=== PATIENT | female | born 1945 | race Caucasian/White ===

== ENCOUNTER 2019-06-21 13:26 | Outpatient (CLI) | payer MEDICARE, SELFPAY ==
--- NOTE | ~2019-06-21 | MM_ITS ---
EXAMINATION: MM diagnostic jeb BI w alexa HISTORY: Right breast lump TECHNIQUE: Additional 3-D tomosynthesis images of both breasts were performed and synthetic 2-D image s were generated. CAD analysis was submitted and interpreted. COMPARISON: 08/01/2018,10/13/2016bilateral digital screening mammogram examinations BREAST PARENCHYMAL COMPOSITION: The breasts are almost entirely fatty. FINDINGS: No mammographic evidence of suspicious mass, architectural distortion, malignant calcificat ion, skin thickening or retraction or significant new or developing density. IMPRESSION: 1. No mammographic evidence of malignancy 2. Routine annual mammographic screening is recommended. BI-RADS Category 1: Negative Reviewed, dictated and finalized at location A.
--- NOTE | ~2019-06-21 | DEXA_ITS ---
Bone Density Report Name: May Hawkins Age: 74 Sex: Female Ethnicity: White Date of : 1945 Indication: postmenopausal; height loss; hysterectomy; Referring Provider: Marlys Lennon Study: Bone densitometry was performed. Exam Date: June 21, 2019 Accession number: [id number] Bone Density: Region BMD T-score Z-score Classification AP Spine (L1, L2) 1.026 0.4 2.6 Normal Femoral Neck (Left) 0.696 -1.4 0.6 Osteopenia Total Hip (Left) 0.790 -1.2 0.4 Osteopenia World Health Organization criteria for BMD impression classify patients as: Normal (T-score at or above -1.0), Osteopenia (T-score between -1.0 and -2.5), or Osteoporosis (T-score at or below -2.5). 10-year Fracture Risk(1): Major Osteoporotic Fracture 10% Hip Fracture 1.6% Reported Risk Factors: [place] (), Neck BMD=0.696, BMI=29.4 (1) FRAX(R) Version 3.08. Fracture probability calculated for an untreated patient. Fracture probability may be lower if the patient has received treatment. Clinical Information Provided by Patient: Has used the following medications: Vitamin D Has the following medical conditions: Hysterectomy Patient maximum height was 68 Menopause Age: 56 No regular weight bearing exercise Onset of menses at age 17 Number of children 2 Impression: The patient has low bone mass, based on the Left Femoral Neck T-score. The patient has an estimated ten-year risk of hip fracture of 1.6% and an estimated ten-year risk of major fracture of 10%, based on the WHO FRAX algorithm. Discussion: BONE DENSITY IS LOW AT ONE OR MORE SKELETAL SITES. This patient's lowest T-score is low at one or more skeletal sites. It meets the World Health Organization's (WHO) criteria for ?low bone mass? (T-score between -1.0 and -2.5). The patient's 10-year risk of fracture as calculated by FRAX is less than the threshold where pharmacological therapy is recommended by the National Osteoporosis Foundation (NOF). However, all treatment decisions require clinical judgment and consideration of individual patient factors, including patient preferences, comorbidities, previous drug use, risk factors not captured in the FRAX model (e.g., frailty, falls, vitamin D deficiency, increased bone turnover, interval significant decline in bone density) and possible under or overestimation of fracture risk by FRAX. The patient should follow a healthful lifestyle (good nutrition with adequate calcium and vitamin D, and appropriate weight-bearing exercise). Follow-Up: Consider repeating this study in 2 to 3 years to reassess this patient's status, or sooner if there is some new clinical indication. Reported by: NAT on 06/21/2019 2:21:00 PM. Reviewed, dictated and finalized at location AGabino ESPINOZA
== END 2019-06-21 13:27 | disposition home or self-care (01) ==
PROVIDERS: PCP Pediatrics; Visit Provider Obstetrics & Gynecology
DX: N63.10 Unspecified lump in the right breast, unspecified quadrant (principal); Z78.0 Asymptomatic menopausal state; M85.89 Other specified disorders of bone density and structure, multiple sites; R92.8 Other abnormal and inconclusive findings on diagnostic imaging of breast
CPT/HCPCS: 77062; 77066; 77080; G0279

== ENCOUNTER 2019-12-17 01:33 | Outpatient (CLI) | payer MEDICARE, SELFPAY ==
[2019-12-17 20:39] LABS: SARS-CoV-2 RNA PCR Negative
== END 2019-12-17 01:34 | disposition home or self-care (01) ==
LOC: ANHCOVIDDT 01:33
PROVIDERS: PCP Pediatrics; Visit Provider Internal Medicine Gastroenterology
DX: Z01.812 Encounter for preprocedural laboratory examination (principal); Z20.828 Contact with and (suspected) exposure to other viral communicable diseases
CPT/HCPCS: 87635; C9803; U0003

== ENCOUNTER 2019-12-20 00:49 | Day surgery (SDC) | payer MEDICARE, SELFPAY ==
[2019-12-17 13:33] VITALS: BMI 27.4
--- NOTE | 2019-12-20 06:43 | WPDANESEPPF ---
Anes - Initial Pre Proc Eval Procedure: Operation Date: 12/20/19 09:30 Proposed Procedures p Esophagogastroduodenoscopy & Colonoscopy - Denzel Gatica MD Date/Time: 12/20/19 06:43 Surgeon: Denzel Gatica MD Pre Op Diagnosis: diarrhea, epigastric pain Patient Data Age: 74 Gender: F Height: 1.7 m Weight: 79.5 kg Allergies Allergy/AdvReac Type Severity Reaction Status Date / Time dihydroergotamine Allergy Intermediate Hypertensio Verified 12/20/19 08:34 n amitriptyline Allergy Mild Hives Verified 12/20/19 08:34 ciprofloxacin Allergy Mild Migraine Verified 12/20/19 08:34 erythromycin base Allergy Mild Rash Verified 12/20/19 08:34 gabapentin Allergy Mild Confusion Verified 12/20/19 08:34 hydrogen peroxide Allergy Mild Swelling Verified 12/20/19 08:34 nitrofurantoin Allergy Mild Confusion Verified 12/20/19 08:34 Penicillins Allergy Mild Unknown Verified 12/20/19 08:34 pregabalin Allergy Mild Confusion Verified 12/20/19 08:34 Quinolones Allergy Mild Migraine Verified 12/20/19 08:34 Sulfa (Sulfonamide Allergy Mild Hives Verified 12/20/19 08:34 Antibiotics) sumatriptan Allergy Mild Migraine Verified 12/20/19 08:34 ampicillin Allergy Unknown Unknown Verified 12/20/19 08:34 clarithromycin Allergy Unknown Unknown Verified 12/20/19 08:34 divalproex sodium Allergy Unknown Hypertensio Verified 12/20/19 08:34 n Home Medications Medication Instructions Recorded Confirmed Type amitriptyline 25 mg PO HS 12/17/19 12/17/19 History amlodipine 5 mg PO DAILY 12/17/19 12/17/19 History aspirin [Adult Low Dose Aspirin] 81 mg PO DAILY 12/17/19 12/17/19 History atorvastatin 10 mg PO DAILY 12/17/19 12/17/19 History carvedilol 6.25 mg PO BID 12/17/19 12/17/19 History levothyroxine 112 mcg PO DAILY 12/17/19 12/17/19 History losartan 100 mg PO BID 12/17/19 12/17/19 History mecobalamin (vitamin B12) 500 mcg PO DAILY 12/17/19 12/17/19 History melatonin 10 mg PO HS PRN 12/17/19 12/17/19 History montelukast 10 mg PO DAILY 12/17/19 12/17/19 History pantoprazole 40 mg PO DAILY 12/17/19 12/17/19 History sertraline 100 mg PO DAILY 12/17/19 12/17/19 History tizanidine 4 mg PO DAILY 12/17/19 12/17/19 History topiramate 25 mg PO BID 12/17/19 12/17/19 History Patient hx anesthesia problems: none Family hx anesthesia problems: none PMF Past Medical History Medical History (Updated 12/20/19 @ 06:44 by Steve Garcia MD) Diabetes HTN (hypertension) Hypercholesterolemia Hypothyroidism Overweight (BMI 25.0-29.9) Family History Family History (Updated 09/13/17 @ 12:33 by DOCTOR UNKNOWN) Sibling Patient's brother is , Onset Age: 49 Father Family history of cardiovascular disease Mother Family history of congestive heart failure Social History Social History Smoking status: Never smoker Alcohol intake: never Substance use: never Substance use type: does not use Living arrangements: with family Spiritual care concerns: No Anes - Eval Final PreProcedure Day of Procedure 12/20/19 06:43 Patient weight: overweight Heart: regular rate and rhythm Lungs: clear to auscultation and normal air movement Airway: Mallampati scale class II Neurological: alert and oriented Last oral intake: >/= 8 hours ASA classification: III Emergent: no Anesthetic plan: proceed Anesthesia type and monitoring: general GIVS Informed Consent: The patient's anesthetic plan and its attendant risks and benefits were discussed with the patient/family/POA. Questions were solicited and answers provided to the satisfaction of the patient/family/POA.
[2019-12-20 08:36] VITALS: BP 147/86; PULSE 53; RESP 16; TEMP 36.4; O2SAT 99
[2019-12-20 08:51] LABS: Glucose Point of Care 165 (65-105)
--- NOTE | 2019-12-20 08:51 | WPDGICN ---
Assessment and Plan Assessment and plan (1) Abdominal pain: Code(s): R10.9 - Unspecified abdominal pain Status: Acute Assessment and Plan: Patient with abdominal pain both low in epigastric area it was somewhat generalized and diffuse. Associated with diarrhea suspicious for irritable bowel syndrome. Given her ongoing symptoms which is a change from previous bowel habits and previous Elyssa having had no pain plan is for a trial of FiberCon daily, Bentyl b.i.d.. An EGD and colonoscopy will be arranged as well to exclude organic disease. (2) Epigastric abdominal pain: Code(s): R10.13 - Epigastric pain Status: Acute (3) Diarrhea: Code(s): R19.7 - Diarrhea, unspecified Status: Acute GI Consult Note Consult date/time: 12/20/19 08:51 HPI: May Parmar is a 74 year old female Seen in evaluation at the request of Dr Kirby. patient reports diarrhea stools that began intermittently see states sometimes normal sometimes watery. She denies any bleeding or fever. She has had abdominal pain both in low abdomen as well as the epigastric area described as crampy occasionally sharp pains period comes intermittently as well. Not specifically related to bowel movement or diet. She denies any fever or weight loss. Family history is noncontributory. Review of Systems Review of Systems: All systems reviewed & are unremarkable except as noted in HPI and below PMFSH Past Medical History Medical History (Updated 12/20/19 @ 08:53 by Denzel Gatica MD) Diabetes HTN (hypertension) Hypercholesterolemia Hypothyroidism Overweight (BMI 25.0-29.9) Family History Family History (Updated 09/13/17 @ 12:33 by DOCTOR UNKNOWN) Sibling Patient's brother is , Onset Age: 49 Father Family history of cardiovascular disease Mother Family history of congestive heart failure Social History Social History Smoking status: Never smoker Alcohol intake: never Substance use: never Substance use type: does not use Living arrangements: with family Spiritual care concerns: No Meds Home Medications and Allergies Home Medications Medication Instructions Recorded Confirmed Type amitriptyline 25 mg PO HS 12/17/19 12/17/19 History amlodipine 5 mg PO DAILY 12/17/19 12/17/19 History aspirin [Adult Low Dose Aspirin] 81 mg PO DAILY 12/17/19 12/17/19 History atorvastatin 10 mg PO DAILY 12/17/19 12/17/19 History carvedilol 6.25 mg PO BID 12/17/19 12/17/19 History levothyroxine 112 mcg PO DAILY 12/17/19 12/17/19 History losartan 100 mg PO BID 12/17/19 12/17/19 History mecobalamin (vitamin B12) 500 mcg PO DAILY 12/17/19 12/17/19 History melatonin 10 mg PO HS PRN 12/17/19 12/17/19 History montelukast 10 mg PO DAILY 12/17/19 12/17/19 History pantoprazole 40 mg PO DAILY 12/17/19 12/17/19 History sertraline 100 mg PO DAILY 12/17/19 12/17/19 History tizanidine 4 mg PO DAILY 12/17/19 12/17/19 History topiramate 25 mg PO BID 12/17/19 12/17/19 History Allergies Allergy/AdvReac Type Severity Reaction Status Date / Time dihydroergotamine Allergy Intermediate Hypertensio Verified 12/20/19 08:34 n amitriptyline Allergy Mild Hives Verified 12/20/19 08:34 ciprofloxacin Allergy Mild Migraine Verified 12/20/19 08:34 erythromycin base Allergy Mild Rash Verified 12/20/19 08:34 gabapentin Allergy Mild Confusion Verified 12/20/19 08:34 hydrogen peroxide Allergy Mild Swelling Verified 12/20/19 08:34 nitrofurantoin Allergy Mild Confusion Verified 12/20/19 08:34 Penicillins Allergy Mild Unknown Verified 12/20/19 08:34 pregabalin Allergy Mild Confusion Verified 12/20/19 08:34 Quinolones Allergy Mild Migraine Verified 12/20/19 08:34 Sulfa (Sulfonamide Allergy Mild Hives Verified 12/20/19 08:34 Antibiotics) sumatriptan Allergy Mild Migraine Verified 12/20/19 08:34 ampicillin Allergy Unknown Unknown Verified 12/20/19 08:34 clarithromycin Allergy Unknown Unknown Verified 12/20/19 08:34 d
[2019-12-20] MEDS: LACTATED RINGERS 1,000 ML 150 ML IV CONT (08:53)
[2019-12-20] MEDS: BENZOCAINE (*SP) 60 ML SPRAY CAN (HURRICAINE) 1 SPRAY MUCOUS MEM (09:35)
--- NOTE | 2019-12-20 09:46 | SUR.OPER ---
EGD ENDED 940 COLONOSCOPY STARTED 945
--- NOTE | 2019-12-20 10:19 | SUR.OPER ---
PT POSITIONED ON BACK DURING PROCEDURE
[2019-12-20 10:21] VITALS: BP 144/66; PULSE 47; RESP 16; O2SAT 97
[2019-12-20 10:31] VITALS: BP 146/68; PULSE 46; RESP 14; O2SAT 99
[2019-12-20 10:41] VITALS: BP 129/74; PULSE 47; RESP 16; O2SAT 97
== END 2019-12-20 11:14 | disposition home or self-care (01) ==
PROVIDERS: PCP Pediatrics; Visit Provider Internal Medicine Gastroenterology
PROC: 0DJ08ZZ Inspection of Upper Intestinal Tract, Via Natural or Artificial Opening Endoscopic (ICD-10-PCS; CPT 43235; principal; 2019-12-20 09:30)
DX: R10.84 Generalized abdominal pain (principal); R19.7 Diarrhea, unspecified; K57.30 Diverticulosis of large intestine without perforation or abscess without bleeding; K64.8 Other hemorrhoids; R10.13 Epigastric pain; I10 Essential (primary) hypertension; E11.9 Type 2 diabetes mellitus without complications; E78.00 Pure hypercholesterolemia, unspecified; E03.9 Hypothyroidism, unspecified
CPT/HCPCS: 45378; 43235; J7120

== ENCOUNTER 2020-12-24 09:51 | Inpatient (IN) | payer MEDICARE, SELFPAY ==
[2020-12-24] VITALS (23 sets, daily range): BP systolic 108–154; BP diastolic 65–101; PULSE 69–143; RESP 14–24; TEMP 36.2–37.2; O2SAT 92–100; BMI 27.8
--- NOTE | ~2020-12-24 | XR_ITS ---
XR chest 2V DATE: 12/24/2020 10:31 INDICATION: Shortness of breath, cough. Covid negative. TECHNIQUE: AP and lateral views COMPARISON: 07/05/2018 2 view chest FINDINGS: Normal heart size. Is aortic calcification and mild unfolding. No hilar or mediastinal enla rgement. No pulmonary infiltrate or consolidation, pleural effusion or pulmonary vascular congestion or pneumo thorax. Diffuse idiopathic skeletal hyperostosis of the thoracic spine. Surgical clips, right upper quadrant, consistent with cholecystectomy. IMPRESSION: No active cardiopulmonary disease Reviewed, dictated and finalized at location A. BILITY ENGINEER
--- NOTE | 2020-12-24 09:55 | ECG_ITS ---
Measurements Intervals Mabel Rate: 69 P: 25 DC: 147 QRS: 20 QRSD: 86 T: 74 QT: 379 QTc: 407 Interpretive Statements SINUS RHYTHM NORMAL ECG Electronically Signed On 12-24-2020 10:22:42 DIRECTOR OF OPTIMIZATION by Bello Smith D.O.
[2020-12-24 10:11] LABS: Basophils Percent Auto 0.2 % (0.2-1.2); Eosinophils Absolute Auto 0.3 K/mm3 (0-0.3); Eosinophils Percent Auto 1.4 % (0-4.4); Hematocrit 43.8 % (37.0-47.0); Hemoglobin 14.7 g/dL (12.0-15.0); Immature Granulocyte Absolute 0.34 K/mm3 (0.00-0.031); Immature Granulocyte Percent A 1.9 % (0-0.5); Lymphocytes Absolute Auto 1.82 K/mm3 (0.9-3.2); Mean Corpuscular HGB Conc 33.6 g/dl (32-36); Mean Corpuscular Volume 77.5 fl (80-100); Mean Platelet Volume 10.2 fl (7.4-10.4); Monocytes Absolute Auto 0.7 K/mm3 (0.1-0.6); Monocytes Percent Auto 3.7 % (2.6-8.5); Neutrophils Percent Auto 82.8 % (45.5-73.1); Platelet Count Result 234 k/mm3 (150-375); Red Blood Count 5.65 M/mm3 (4.2-5.4); Red Cell Distribution Width 16.8 % (11.5-14.5); White Blood Count 18.1 K/mm3 (4.5-10.0)
[2020-12-24 10:23] LABS: Alanine Aminotransferase 33 U/L (4-35); Albumin Level 4.1 g/dL (3.5-5.1); Alkaline Phosphatase 94 U/L (38-126); Anion Gap 13 mmol/L (8-16); Aspartate Amino Transferase 26 U/L (14-36); Bilirubin,Total 0.5 mg/dL (0.2-1.3); Blood Urea Nitrogen 31 mg/dL (7-17); Calcium 8.9 mg/dL (8.4-10.2); Carbon Dioxide 16 mmol/L (22-30); Chloride 102 mmol/L (98-107); Estimated CRCL calculation 39 ml/min; Estimated Glomerular Filt Rate 49; Glucose 295 mg/dL (65-110); Potassium 4.4 mmol/L (3.4-5.0); Sodium 131 mmol/L (137-145)
[2020-12-24 10:36] LABS: NT Pro B Type Natriuretic Pept 42 pg/mL (5-100)
[2020-12-24] MEDS: IPRATROPIUM BR 0.02% INH SOLN 0.5 MG/2.5 ML VIAL 1.5 MG INHALATION (11:24)
[2020-12-24] MEDS: ALBUTEROL SULFATE NEB 2.5 MG/0.5 ML INH 15 MG INHALATION (11:24)
--- NOTE | 2020-12-24 12:56 | ED.SOB ---
HPI - SOB/Dyspnea General Chief Complaint: Shortness of Breath/Dyspnea Stated Complaint: Shortness of breath Time Seen by Provider: 12/24/20 10:15 History of Present Illness HPI Narrative: Patient is a 75-year-old female who presents the ER with shortness of breath. Patient reports recent hospitalization at at bedtime at bedtime [facility]. There she was diagnosed with COPD exacerbation despite her reporting she has no history of COPD. She is a former smoker however. Patient was treated with IV steroids and regular nebulizer treatments. Patient has been using Spiriva and albuterol at home. She reports cough is worsened. She has coarse rales with coughing. Denies fevers or chills or sweats. She has been taking her prednisone taper while at home. Patient reports 3 negative Covid tests while at the outside hospital. Patient also is reporting pain in her abdomen and back from frequent coughing Related Data Home Medications Medication Instructions Recorded Confirmed amitriptyline 25 mg PO HS 12/17/19 12/24/20 amlodipine 10 mg PO DAILY 12/17/19 12/24/20 aspirin [Adult Low Dose Aspirin] 81 mg PO DAILY 12/17/19 12/24/20 atorvastatin 20 mg PO DAILY 12/17/19 12/24/20 carvedilol 6.25 mg PO BID 12/17/19 12/24/20 levothyroxine 112 mcg PO DAILY 12/17/19 12/24/20 losartan 50 mg PO BID 12/17/19 12/24/20 mecobalamin (vitamin B12) 500 mcg PO DAILY 12/17/19 12/24/20 melatonin 10 mg PO HS PRN 12/17/19 12/24/20 pantoprazole 40 mg PO DAILY 12/17/19 12/24/20 sertraline 100 mg PO DAILY 12/17/19 12/24/20 tizanidine 4 mg PO HS 12/17/19 12/24/20 topiramate 25 mg PO BID 12/17/19 12/24/20 albuterol sulfate 1 puff INHALATION QID 12/24/20 12/24/20 budesonide-formoterol [Symbicort] INHALATION 12/24/20 clonidine HCl 0.1 mg PO DAILY PRN 12/24/20 12/24/20 guaifenesin 600 mg PO BID 12/24/20 12/24/20 ipratropium-albuterol 3 ml INHALATION QID 12/24/20 12/24/20 prednisone 80 mg PO BID 12/24/20 12/24/20 tiotropium bromide [Spiriva with 18 mcg INHALATION DAILY 12/24/20 12/24/20 HandiHaler] Allergies Allergy/AdvReac Type Severity Reaction Status Date / Time dihydroergotamine Allergy Intermediate Hypertensio Verified 12/24/20 17:19 n amitriptyline Allergy Mild Hives Verified 12/24/20 17:19 ciprofloxacin Allergy Mild Migraine Verified 12/24/20 17:19 erythromycin base Allergy Mild Rash Verified 12/24/20 17:19 gabapentin Allergy Mild Confusion Verified 12/24/20 17:19 hydrogen peroxide Allergy Mild Swelling Verified 12/24/20 17:19 nitrofurantoin Allergy Mild Confusion Verified 12/24/20 17:19 Penicillins Allergy Mild Unknown Verified 12/24/20 17:19 pregabalin Allergy Mild Confusion Verified 12/24/20 17:19 Quinolones Allergy Mild Migraine Verified 12/24/20 17:19 Sulfa (Sulfonamide Allergy Mild Hives Verified 12/24/20 17:19 Antibiotics) sumatriptan Allergy Mild Migraine Verified 12/24/20 17:19 ampicillin Allergy Unknown Unknown Verified 12/24/20 17:19 clarithromycin Allergy Unknown Unknown Verified 12/24/20 17:19 divalproex sodium Allergy Unknown Hypertensio Verified 12/24/20 17:19 n Review of Systems Review of Systems: All systems reviewed & are unremarkable except as noted in HPI and below Constitutional: Constitutional: Denies chills, Reports fatigue and Denies fever(s) ENT: Denies nasal congestion and Denies sore throat Cardiovascular: Cardiovascular: Denies chest pain and Denies radiating jaw, neck or arm pain Respiratory: Respiratory: Reports cough, Reports dyspnea and Reports wheezing Gastrointestinal: Gastrointestinal: Denies nausea and Denies vomiting Musculoskeletal: Musculoskeletal: Denies arthralgias, Denies joint swelling and Reports muscle cramps PMFSH Past Medical History Medical History (Updated 12/24/20 @ 18:47 by Otis Paez MD) Chronic kidney disease, stage 3 Baseline creatinine is around 1.10. Chronic obstructive pulmonary disease Depression Diastolic congestive heart failure Echocardiogram in August 2016 showed n
--- NOTE | 2020-12-24 15:45 | PM.IMHP ---
H&P: HPI History of Present Illness Date/Time: 12/24/20 15:45 Chief Complaint: Cough. Narrative: This is a 75-year-old female with hypertension, hyperlipidemia, obstructive sleep apnea on CPAP, GERD, type 2 diabetes mellitus, and poorly documented history of COPD (patient is a lifelong nonsmoker) who presented to the emergency department earlier today via private vehicle from home for evaluation of a cough. Approximately 2 weeks ago she developed a cough which she attributed to postnasal drip and as the days went on she developed raspiness in her voice and a worsening, barking cough. She had 2 negative rapid COVID tests done as an outpatient before being admitted to [facility] in [place] for 5 days last week for her symptoms. She was treated with antibiotics, steroids, and nebulizers for presumed pneumonia and she reports testing negative for COVID by PCR done at that time. Her symptoms were not better when she was discharged home 2 days ago on Tuesday and she continues to have a barking cough associated with pleuritic pain. She has not had fever, chills, or sweats. She denies overt shortness of breath though she feels like she cannot get it in a good breath at times. She denies nausea or vomiting or change in smell or taste. She denies dysphagia and concerns for aspiration however she reports having laryngitis for 5 weeks many years ago for which she was referred to an ENT at [place]. It sounds as though she had speech therapy there although she does not recall ever being diagnosed with vocal cord dysfunction. Additionally the patient does not think she has ever had formal PFTs to diagnose asthma or COPD. She did complete the COVID vaccination series and denies known exposure to those positive for COVID. Review of Systems Review of Systems: Twelve systems were reviewed. She denies fever, chills, and sweats. No headache or neck ache. No significant sore throat. No exertional chest pain. Appetite has been okay. No diarrhea. No dysuria. No orthopnea, PND, or lower extremity edema. No history of venous thromboembolism. Her glucose has been running a bit high due to steroids. No blurry vision, polydipsia, or polyuria. Except as documented, all other systems were reviewed and are negative. [facility] Past Medical History Medical History Chronic kidney disease, stage 3 Baseline creatinine is around 1.10. Chronic obstructive pulmonary disease Depression Diastolic congestive heart failure Echocardiogram in August 2016 showed normal left ventricular systolic function and size with without wall motion abnormalities, moderate concentric left ventricular hypertrophy, and impaired diastolic relaxation grade 1 with an EF estimated 65%. Hypercholesterolemia Hypertension Hypothyroidism Irritable bowel syndrome Migraines Nephrolithiasis Spinal stenosis Type 2 diabetes mellitus Surgical History Surgical History (Updated 12/24/20 @ 16:00 by Shweta Sykes PA-C) History of arthroscopy of left knee (04/2002) ACL repair. History of bilateral tubal ligation (1973) History of bladder suspension procedure History of carpal tunnel release (2010) History of colonoscopy (12/28/19) Extensive sigmoid diverticulosis, per Dr. Gatica. History of esophagogastroduodenoscopy (12/20/19) Unremarkable, per Dr. Gatica. History of evacuation of hematoma (01/2011) And decompression of lumbar hematoma. History of hysterectomy History of laparoscopic cholecystectomy (11/2003) History of left heart catheterization (2002) Unremarkable per patient. History of mandibular surgery (1979) Bilateral TMJ surgery. History of spinal surgery Laser spine surgery at L4-L5 x3. History of tonsillectomy History of total right hip arthroplasty (2007) History of tympanoplasty of right ear (11/2008) Family History Family History (Updated 12/24/20 @ 15:58 by Shweta Sykes PA-C) Sibling Mesothelioma Father Family
--- NOTE | 2020-12-24 17:19 | ADMGEN ---
This patient, May Parmar, was admitted to [facility] Surg Room 327-01 at 1705. Patient/family oriented to hospital policies and general routines including ID bracelet, bed and alarms, visiting hours, pain management, procedures, bathroom and other care routines, personal items, smoking policy, room service/diet, and visiting hours. Information on how to activate the Rapid Response Team has been discussed. Patient/Family are encouraged to report perceived risks to care and to ask questions if they do not understand what they are told or what they should do.
[2020-12-24 17:30] LABS: Glucose Point of Care 195 mg/dl (65-105)
[2020-12-24 18:19] LABS: CRP 0.8 mg/dL (<1.0); Magnesium 2.1 mg/dL (1.6-2.3)
[2020-12-24 19:48] LABS: Procalcitonin 0.1 ng/mL
[2020-12-24 20:13] LABS: Hemoglobin A1C 8.7 % (<5.7)
[2020-12-24] MEDS: ALBUTEROL SULFATE NEB 2.5 MG/0.5 ML INH 5 MG INHALATION (21:22)
[2020-12-24] MEDS: IPRATROPIUM BR 0.02% INH SOLN 0.5 MG/2.5 ML VIAL INHALATION (21:22)
[2020-12-24] MEDS: guaiFENesin 12 HR 600 MG TABCR PO (21:31)
[2020-12-24] MEDS: ACETAMINOPHEN 325 MG TABLET 650 MG PO (21:49)
[2020-12-24] MEDS: MELATONIN 5 MG TABLET 10 MG PO (22:19)
[2020-12-24] MEDS: carvediloL 6.25 MG TABLET PO (22:19)
[2020-12-24] MEDS: TIZANIDINE HCL 4 MG TABLET PO (22:19)
[2020-12-24 22:22] LABS: Glucose Point of Care 183 mg/dl (65-105)
[2020-12-25] VITALS (14 sets, daily range): BP systolic 125–137; BP diastolic 69–86; PULSE 65–83; RESP 16–18; TEMP 36.8–37.2; O2SAT 96–98
[2020-12-25] MEDS: IPRATROPIUM BR 0.02% INH SOLN 0.5 MG/2.5 ML VIAL INHALATION ×4 (02:25→22:04)
[2020-12-25] MEDS: ALBUTEROL SULFATE NEB 2.5 MG/0.5 ML INH 5 MG INHALATION ×2 (02:25→08:39)
[2020-12-25] MEDS: LEVOTHYROXINE SODIUM 112 MCG TABLET PO (06:00)
[2020-12-25 08:18] LABS: Glucose Point of Care 182 mg/dl (65-105)
[2020-12-25] MEDS: amLODIPine BESYLATE 5 MG TABLET 10 MG PO (09:23)
[2020-12-25] MEDS: ATORVASTATIN 10 MG TABLET 20 MG PO (09:23)
[2020-12-25] MEDS: ENOXAPARIN 40 MG/0.4 ML SYRINGE SUB-Q (09:23)
[2020-12-25] MEDS: SERTRALINE HCL 50 MG TABLET 100 MG PO (09:23)
[2020-12-25] MEDS: predniSONE 20 MG TABLET 40 MG PO (09:24)
[2020-12-25] MEDS: carvediloL 6.25 MG TABLET PO ×2 (09:24→20:00)
[2020-12-25] MEDS: ASPIRIN 81 MG CHEWABLE TABLET PO (09:25)
[2020-12-25] MEDS: TOPIRAMATE 25 MG TABLET PO ×2 (09:25→17:46)
[2020-12-25] MEDS: guaiFENesin 12 HR 600 MG TABCR PO ×2 (09:25→20:00)
[2020-12-25] MEDS: PANTOPRAZOLE 40 MG TABLET PO (09:25)
[2020-12-25] MEDS: LOSARTAN POTASSIUM 50 MG TABLET PO ×2 (09:25→17:46)
[2020-12-25] MEDS: CYANOCOBALAMIN 500 MCG TABLET PO (09:25)
[2020-12-25 12:18] LABS: Glucose Point of Care 246 mg/dl (65-105)
--- NOTE | 2020-12-25 12:27 | PM.CNPUL ---
Assessment and Plan Assessment and plan (1) Cough: Code(s): R05.9 - Cough, unspecified Status: Acute Assessment and Plan: Patient with chronic cough for 10 years that is episodic coming for 6 weeks in resolving for 2-3 months. These coughing episodes are usually precipitated by sinus congestion sinus discharge. Patient is currently coughing since the summer an over the last 2 weeks this as worsened despite treatment with antibiotics, prednisone and inhalers. Patient tells me she has had 3 or 4 PFTs in maybe on the last PFT she they said something about minor emphysema. She occasionally does wheeze when she coughs. She has no evidence of gastroesophageal reflux and is treated with Protonix currently. No evidence of asthma by history. Regarding the etiology of her cough I am concerned about allergic sinusitis leading to chronic cough. Currently she has improved with prednisone 40 mg p.o. q.day and I will continue albuterol and ipratropium nebulizers Q 6 hours for now. I will discontinue all other inhalers. Will empirically start her on montelukast, loratidine and flonase nasal to aggressively treat sinus disease. I will send an IgE allergen panel for our area. I see no evidence of an active infection and agree with no antibiotics. Will follow with you. History of Present Illness History of Present Illness Consult date: 12/25/20 Requesting physician: Miladis Rodriguez MD Reason for consult: cough Chief complaint: copd exacerbation,bronchitis Narrative: This is a new Pulmonary consultation for cough 75-year-old woman with a history of migraine headaches, borderline diabetes, hypothyroidism hypertension, and chronic cough for 10 years. Patient tells me that she has no respiratory issues through her childhood other than strep throat in which she had to have her tonsils removed at age 22. She never had any coughing issues until approximately age 50-56. She said the coughing has been episodic and more regular over the last 10 years. She will have bouts of coughing that last approximately 6 weeks and then she will have 2 or 3 months in which she has no cough and is totally asymptomatic Been able to walk and go to the [facility] for classes. Over the last 10 years her episodes happen worse over time. She has had multiple diagnostic tests for these coughs most notably she went to see an ENT at [facility] about 5 years ago when she was coughing for 5 months and she was forcing could not speak. She did have visualization and they said that her vocal cords were normal. She eventually regained her speech. She tells me the coughing episodes always are proceeded by sinus congestion runny nose and postnasal drip that then goes down into her chest and causes her to rattle. She denies ever having hemoptysis. She says that the coughing is generally worse in the morning and night and that may be drinking water sometimes helps a cough. She also states there is nothing she can do to provoke the coughing episodes. She denies eating or choking on food. She denies ear pain or sinus pain. And states that she has been on multiple inhalers, prednisone, Zyrtec, media Singulair, Protonix, gabapentin and that none of these help her coughing episodes when they occur. Patient states that she did have an ear surgery for a hole in her here but that healed up. Recently she saw an ENT in [facility] and her ears were stopped up and they cleared with antibiotics. The patient denies heartburn or acid reflux and had a normal EGD on 12/20/2019. The patient had an echocardiogram in 2017 there was no evidence of any mitral valve disease. currently the patient states she has been coughing since the summer and again per her usual pattern she had sinus congestion that settled in her chest. She was recently admitted to an outside hospital for 5 days and was treated with antibiotics, steroids and nebulizers for presumed pneumonia and she has had
[2020-12-25] MEDS: LORATADINE 10 MG TABLET PO (13:43)
[2020-12-25] MEDS: INSULIN ASPART (*BKC) 100 UNITS/ML SUB-Q ×2 (13:44→17:45)
--- NOTE | 2020-12-25 14:02 | PM.IMPN ---
Progress Note: A&P Assessment and Plan (1) Cough: Code(s): R05.9 - Cough, unspecified Status: Acute Assessment and Plan: Pt has ongoing dry cough cough that has been present for about 2 weeks. Chest x-ray is unremarkable and pt has a negative chest CTA. Pt has history of copd. She did complete the COVID vaccination series and denies known exposure to those positive for COVID. Continue to treat with IV steroids and nebulizers, pulmonology advices to treat the allergic competent also. (2) Pleuritic pain: Code(s): R07.81 - Pleurodynia Status: Acute Assessment and Plan: Likely secondary to COPDexcerbation (3) Leukocytosis: Code(s): D72.829 - Elevated white blood cell count, unspecified Status: Acute Assessment and Plan: Continue to monitor (4) Hypertension: Code(s): I10 - Essential (primary) hypertension Status: Acute Assessment and Plan: Continue home medications (5) Type 2 diabetes mellitus: Code(s): E11.9 - Type 2 diabetes mellitus without complications Status: Acute Assessment and Plan: Continue home medications, Accuchecks, SSi (6) Hypercholesterolemia: Code(s): E78.00 - Pure hypercholesterolemia, unspecified Status: Acute (7) Hypothyroidism: Code(s): E03.9 - Hypothyroidism, unspecified Status: Acute Assessment and Plan: Continue home medications (8) Diastolic congestive heart failure: Code(s): I50.30 - Unspecified diastolic (congestive) heart failure Status: Acute Assessment and Plan: Continue home medications (9) Chronic kidney disease, stage 3: Code(s): N18.30 - Chronic kidney disease, stage 3 unspecified Status: Acute Assessment and Plan: monitor bmp Subjective Date/time seen: 12/25/20 14:02 Interval history: 75-year-old female with hypertension, hyperlipidemia, obstructive sleep apnea on CPAP, GERD, type 2 diabetes mellitus, and poorly documented history of COPD (patient is a lifelong nonsmoker) who presented to the emergency department earlier today via private vehicle from home for evaluation of a cough. Pt admitted with copd excerbation/ bronchitis. Evaluation by pulmonology MD appreciated. Review of Systems Review of Systems: All systems reviewed & are unremarkable except as noted in HPI and below Exam Narrative: General: Well-developed, constant dry cough Respiratory: BL rales in lungs Cardiovascular: Regular rate and rhythm with S1-S2. Gastrointestinal: Abdomen is soft, nontender, and nondistended with positive bowel sounds. Skin: Warm and dry. No rash or lesions on limited exam. Extremities: No cyanosis, clubbing, or edema. Radial and pedal pulses intact. Neurological: Alert. Cranial nerves 2-12 are grossly intact. No gross focal deficits to casual conversation. Psychiatric: Pleasant and cooperative with normal mood and affect. Judgment and insight intact. Objective Data Vital Signs Vital Signs: Vital Signs - 24 hr 12/24/20 14:07 12/24/20 14:16 12/24/20 14:31 Temperature Pulse Rate 76 76 78 Respiratory Rate 18 18 19 Blood Pressure 131/66 110/79 133/78 Pulse Oximetry 97 95 92 12/24/20 15:16 12/24/20 16:30 12/24/20 16:40 Temperature 37.2 C Pulse Rate 80 82 73 Respiratory Rate 15 20 16 Blood Pressure 134/80 149/96 H 137/86 Pulse Oximetry 95 98 98 12/24/20 20:00 12/24/20 21:24 12/24/20 21:32 Temperature Pulse Rate 79 77 79 Respiratory Rate 16 16 16 Blood Pressure Pulse Oximetry 95 12/24/20 22:00 12/24/20 22:19 12/25/20 02:26 Temperature 36.6 C Pulse Rate 69 79 83 Respiratory Rate 16 16 Blood Pressure 143/83 H Pulse Oximetry 95 12/25/20 02:35 12/25/20 06:00 12/25/20 08:46 Temperature 37.2 C Pulse Rate 81 65 72 Respiratory Rate 16 16 18 Blood Pressure 125/69 Pulse Oximetry 98 96 12/25/20 08:55 12/25/20 09:24 Temperature Pulse Rate 80 68 Respir
[2020-12-25] MEDS: ALBUTEROL SULFATE NEB 2.5 MG/0.5 ML INH INHALATION ×2 (14:36→22:03)
[2020-12-25 16:31] LABS: Glucose Point of Care 273 mg/dl (65-105)
[2020-12-25] MEDS: MONTELUKAST SODIUM 10 MG TABLET PO (20:00)
[2020-12-25] MEDS: TIZANIDINE HCL 4 MG TABLET PO (20:00)
[2020-12-25] MEDS: MELATONIN 5 MG TABLET 10 MG PO (20:34)
[2020-12-25 21:33] LABS: Glucose Point of Care 318 mg/dl (65-105)
[2020-12-26] VITALS (9 sets, daily range): BP systolic 141–150; BP diastolic 72–79; PULSE 52–88; RESP 14–20; TEMP 36.3–36.6; O2SAT 95–100
[2020-12-26] MEDS: HYDROcodone/acetaminophen (*CRX) 5-325 MG TABLET 1 TAB PO (02:36)
[2020-12-26] MEDS: ALBUTEROL SULFATE NEB 2.5 MG/0.5 ML INH INHALATION ×2 (03:48→15:08)
[2020-12-26] MEDS: IPRATROPIUM BR 0.02% INH SOLN 0.5 MG/2.5 ML VIAL INHALATION ×2 (03:49→15:08)
[2020-12-26] MEDS: LEVOTHYROXINE SODIUM 112 MCG TABLET PO (06:26)
[2020-12-26 08:14] LABS: Glucose Point of Care 162 mg/dl (65-105)
--- NOTE | 2020-12-26 08:35 | PM.PNPUL ---
Progress Note: A&P Assessment and Plan (1) Cough: Code(s): R05.9 - Cough, unspecified Status: Acute Assessment and Plan: 12/25 Patient with chronic cough for 10 years that is episodic coming for 6 weeks in resolving for 2-3 months. These coughing episodes are usually precipitated by sinus congestion sinus discharge. Patient is currently coughing since the summer an over the last 2 weeks this as worsened despite treatment with antibiotics, prednisone and inhalers. Patient tells me she has had 3 or 4 PFTs in maybe on the last PFT she they said something about minor emphysema. She occasionally does wheeze when she coughs. She has no evidence of gastroesophageal reflux and is treated with Protonix currently. No evidence of asthma by history. Regarding the etiology of her cough I am concerned about allergic sinusitis leading to chronic cough. Currently she has improved with prednisone 40 mg p.o. q.day and I will continue albuterol and ipratropium nebulizers Q 6 hours for now. I will discontinue all other inhalers. Will empirically start her on montelukast, loratidine and flonase nasal to aggressively treat sinus disease. I will send an IgE allergen panel for our area. I will send immunoglobulin levels. I see no evidence of an active infection and agree with no antibiotics. 12/26 Patient states the cough is a little bit better. She states that is maybe 15% better but still present. She denies any shortness of breath. Saturations on room air are 98-100%. Currently she is on albuterol and ipratropium nebulizers Q 6 hours, Solu-Medrol 40 mg a day, montelukast 10 mg a day, loratadine 10 mg a day, Flonase nasal spray at 2 sprays each nostril q.a.m., guaifenesin 600 mg b.i.d., Protonix 40 mg p.o. q.day and Benzonate 200 mg t.i.d.. she is still coughing during the examination. The etiology of the patient's coughing episodes start with sinus congestion and postnasal drip that ultimately ;nino to her coughing spells. She is asymptomatic for 2-3 months between these episodes that last 4-6 weeks. I would aggressively treat her sinus disease with montelukast 10 mg p.o. q.day, antihistamine such as loratadine 10 mg q. day, and flonase Q day. She is on Protonix and has no GERD symptoms and had a normal EGD 12/28/19. she has no symptoms of asthma when she is not coughing for 2-3 months and no limitation in her daily living from a respiratory viewpoint during this time. She is lifelong never smoker Making tobacco related COPD unlikely, She has had PFTs but I do not have those currently. Multiple inhalers as well as prednisone have not helped her coughing spells and have provided minimal improvement over the last week and I would DC at this time. I will send immunoglobulin levels to exclude hypogammaglobulinemia as a cause for sinusitis and I have sent and IgE panel for local ([place]) allergens. From a pulmonary perspective patient is ready for discharge on these pulmonary medications. montelukast 10 mg a day loratadine 10 mg a day Flonase nasal spray at 2 sprays each nostril q.a.m. guaifenesin 600 mg b.i.d. Protonix 40 mg p.o. q.day Benzonate 200 mg t.i.d.. Patient should follow up with her primary physician and given the severity, complexity and unclear etiology of her cough she should be referred to an manager animation and pulmonary service at [facility] or [facility] as an outpatient. Discussed with Dr. Rodriguez, will signoff, call with questions. Subjective Date/time seen: 12/26/20 08:35 Interval history: 12/25/20 This is a new Pulmonary consultation for cough 75-year-old woman with a history of migraine headaches, borderline diabetes, hypothyroidism hypertension, and chronic cough for 10 years. Patient tells me that she has no respiratory issues through her childhood other than strep throat in which she had to have her tonsils removed at age 22. She never had any coughing issues until approximately age 50-56.
[2020-12-26 09:07] LABS: Hematocrit 46.5 % (37.0-47.0); Hemoglobin 15.4 g/dL (12.0-15.0); Mean Corpuscular HGB Conc 33.1 g/dl (32-36); Mean Corpuscular Hemoglobin 26.2 pg (26-34); Mean Corpuscular Volume 79.2 fl (80-100); Mean Platelet Volume 10.3 fl (7.4-10.4); Platelet Count Result 273 k/mm3 (150-375); Red Blood Count 5.87 M/mm3 (4.2-5.4); Red Cell Distribution Width 16.8 % (11.5-14.5); White Blood Count 16.5 K/mm3 (4.5-10.0)
[2020-12-26 09:16] LABS: Anion Gap 8 mmol/L (8-16); Blood Urea Nitrogen 25 mg/dL (7-17); Calcium 9.8 mg/dL (8.4-10.2); Carbon Dioxide 25 mmol/L (22-30); Chloride 102 mmol/L (98-107); Estimated CRCL calculation 39 ml/min; Estimated Glomerular Filt Rate 49; Glucose 190 mg/dL (65-110); Potassium 4.3 mmol/L (3.4-5.0); Sodium 135 mmol/L (137-145)
[2020-12-26] MEDS: BENZONATATE 100 MG CAPSULE 200 MG PO (10:16)
[2020-12-26] MEDS: methylPREDNISolone SOD SUCC 40 MG VIAL IV PUSH (10:16)
[2020-12-26] MEDS: ENOXAPARIN 40 MG/0.4 ML SYRINGE SUB-Q (10:17)
[2020-12-26] MEDS: LOSARTAN POTASSIUM 50 MG TABLET PO (10:17)
[2020-12-26] MEDS: LORATADINE 10 MG TABLET PO (10:17)
[2020-12-26] MEDS: CYANOCOBALAMIN 500 MCG TABLET PO (10:17)
[2020-12-26] MEDS: ATORVASTATIN 10 MG TABLET 20 MG PO (10:17)
[2020-12-26] MEDS: TOPIRAMATE 25 MG TABLET PO (10:17)
[2020-12-26] MEDS: SERTRALINE HCL 50 MG TABLET 100 MG PO (10:19)
[2020-12-26] MEDS: guaiFENesin 12 HR 600 MG TABCR PO (10:19)
[2020-12-26] MEDS: ASPIRIN 81 MG CHEWABLE TABLET PO (10:19)
[2020-12-26] MEDS: carvediloL 6.25 MG TABLET PO (10:19)
[2020-12-26] MEDS: amLODIPine BESYLATE 5 MG TABLET 10 MG PO (10:19)
[2020-12-26] MEDS: FLUTICASONE PROPIONATE 0.05% NA SPR 16 GM BTL (*BKC) 2 SPRAY NASAL (10:20)
[2020-12-26 12:31] LABS: Glucose Point of Care 219 mg/dl (65-105)
[2020-12-26] MEDS: INSULIN ASPART (*BKC) 100 UNITS/ML SUB-Q (13:58)
--- NOTE | 2020-12-26 14:33 | PM.DS ---
DS: Admitting Diagnosis Discharge Date 12/28/2020 Admitting Diagnosis Cough. DS: Discharge Diagnosis Discharge Diagnosis (1) Cough: Code(s): R05.9 - Cough, unspecified Status: Acute Assessment and Plan: Pt has ongoing dry cough cough that has been present for about 2 weeks. Chest x-ray is unremarkable and pt has a negative chest CTA. Pt has history of copd. She did complete the COVID vaccination series and denies known exposure to those positive for COVID. pt was treated with IV steroids and nebulizers while in hospital. Pulmonology advices to treat the allergic competent, feels it is more allergic related. She had 2 negative rapid COVID tests done as an outpatient before being admitted to [facility] in [place] for 5 days last week for her symptoms (2) Pleuritic pain: Code(s): R07.81 - Pleurodynia Status: Acute Assessment and Plan: Likely secondary to COPDexcerbation (3) Leukocytosis: Code(s): D72.829 - Elevated white blood cell count, unspecified Status: Acute Assessment and Plan: Continue to monitor (4) Hypertension: Code(s): I10 - Essential (primary) hypertension Status: Acute Assessment and Plan: Continue home medications (5) Type 2 diabetes mellitus: Code(s): E11.9 - Type 2 diabetes mellitus without complications Status: Acute Assessment and Plan: Continue home medications, Accuchecks, SSi (6) Hypercholesterolemia: Code(s): E78.00 - Pure hypercholesterolemia, unspecified Status: Acute (7) Hypothyroidism: Code(s): E03.9 - Hypothyroidism, unspecified Status: Acute Assessment and Plan: Continue home medications (8) Diastolic congestive heart failure: Code(s): I50.30 - Unspecified diastolic (congestive) heart failure Status: Acute Assessment and Plan: Continue home medications (9) Chronic kidney disease, stage 3: Code(s): N18.30 - Chronic kidney disease, stage 3 unspecified Status: Acute Assessment and Plan: Monitor bmp DS: Summary Hospital Course Hospital Course: copd. She did complete the COVID vaccination series and denies known exposure to those positive for COVID. pt was treated with IV steroids and nebulizers while in hospital. Pulmonology advices to treat the allergic competent, feels it is more allergic related. She had 2 negative rapid COVID tests done as an outpatient before being admitted to [facility] in [place] for 5 days last week for her symptoms Time Spent with Patient Time attestation: Total time spent providing and/or coordinating discharge services: 40 minutes on day of discharge Exam Narrative: General: Well-developed, constant dry cough Respiratory: BL rales in lungs Cardiovascular: Regular rate and rhythm with S1-S2. Gastrointestinal: Abdomen is soft, nontender, and nondistended with positive bowel sounds. Skin: Warm and dry. No rash or lesions on limited exam. Extremities: No cyanosis, clubbing, or edema. Radial and pedal pulses intact. Neurological: Alert. Cranial nerves 2-12 are grossly intact. No gross focal deficits to casual conversation. Psychiatric: Pleasant and cooperative with normal mood and affect. Judgment and insight intact. DS: Data Data Completed and Pending Labs on day of discharge: Labs from last 24 hours 12/26/20 12/26/20 12/26/20 12:16 09:03 08:42 WBC RBC Hgb Hct MCV MCH MCHC RDW Plt Count MPV Sodium 135 L Potassium 4.3 Chloride 102 Carbon Dioxide 25 Anion Gap 8 BUN 25 H Creatinine 1.10 H Estim Creat Clear Calc 39 Estimated GFR 49 L Glucose 190 H POC Capillary Glucose 219 H Calcium 9.8 Immunoglobulin A Pending Immunoglobulin G Pending Immunoglobulin M Pending 12/26/20 12/26/20 12/25/20 08:42 07:48 20:11 WBC 16.5 H RBC 5.87 H Hgb 15.4 H Hct 46.5 MCV
[2020-12-30 10:27] LABS: Immunoglobulin A 133 mg/dL (70-320); Immunoglobulin G 897 mg/dL (600-1540); Immunoglobulin M 241 mg/dL (50-300)
== END 2020-12-26 15:52 | disposition home or self-care (01) | DRG 191 ==
LOC: ANHED 10:49 → ANH3MEDSUR 16:21
PROVIDERS: Internal Medicine Pulmonary Disease; Physician Assistant; Admitting Provider Family Medicine; Emergency Provider Emergency Medicine; PCP Pediatrics; Visit Provider Family Medicine
DX: J44.1 Chronic obstructive pulmonary disease with (acute) exacerbation (principal); I13.0 Hypertensive heart and chronic kidney disease with heart failure and stage 1 through stage 4 chronic kidney disease, or unspecified chronic kidney disease; I50.32 Chronic diastolic (congestive) heart failure; D72.829 Elevated white blood cell count, unspecified; E11.22 Type 2 diabetes mellitus with diabetic chronic kidney disease; N18.30 Chronic kidney disease, stage 3 unspecified; E78.00 Pure hypercholesterolemia, unspecified; E03.9 Hypothyroidism, unspecified; K58.9 Irritable bowel syndrome, unspecified; M48.00 Spinal stenosis, site unspecified; K21.9 Gastro-esophageal reflux disease without esophagitis; G47.33 Obstructive sleep apnea (adult) (pediatric); Z96.641 Presence of right artificial hip joint; Z87.891 Personal history of nicotine dependence; Z79.82 Long term (current) use of aspirin; Z90.710 Acquired absence of both cervix and uterus; Z90.49 Acquired absence of other specified parts of digestive tract
CPT/HCPCS: 36415; 71046; 80048; 80053; 82784; 82948; 83036; 83735; 83880; 84145; 84443; 85025; 85027; 86140; 93005; 94640; 94667; 96372; 99285; A9270; G0378; J1650; J1815; J2920; J7512

== ENCOUNTER 2022-01-27 14:18 | Outpatient (CLI) | payer MEDICARE, SELFPAY ==
--- NOTE | ~2022-01-27 | US_ITS ---
Renal-Bladder ultrasound Clinical History: Chronic kidney disease Technique: Real-time sonographic imaging of the kidneys and urinary bladder was performed. Findings: The right kidney measures 9.1 cm in length and the left kidney measures 11.9 cm. There is n o hydronephrosis or renal calculus identified. Renal cortical echogenicity is within normal limits. N o renal mass lesion is identified. The urinary bladder is moderately distended at the time of this exam. No intraluminal echoes are iden tified. No abnormal wall thickening is seen. Impression: Unremarkable ultrasound of the kidneys and urinary bladder. Reviewed, dictated and finalized at location M. RNATIONAL MARKETING EXECUTIVE Impression: Unremarkable ultrasound of the kidneys and urinary bladder.
[2022-01-27 14:53] LABS: Hematocrit 41.9 % (37.0-47.0); Hemoglobin 13.3 g/dL (12.0-15.0); Mean Corpuscular HGB Conc 31.7 g/dl (32-36); Mean Corpuscular Hemoglobin 25.9 pg (26-34); Mean Corpuscular Volume 81.7 fl (80-100); Mean Platelet Volume 10.2 fl (7.4-10.4); Platelet Count Result 213 k/mm3 (150-375); Red Blood Count 5.13 M/mm3 (4.2-5.4); Red Cell Distribution Width 16.7 % (11.5-14.5); White Blood Count 6.9 K/mm3 (4.5-10.0)
[2022-01-27 15:06] LABS: Magnesium 1.8 mg/dL (1.6-2.3)
[2022-01-27 15:07] LABS: Albumin Level 4.4 g/dL (3.5-5.1); Anion Gap 9 mmol/L (8-16); Blood Urea Nitrogen 22 mg/dL (7-17); Calcium 9.5 mg/dL (8.4-10.2); Carbon Dioxide 25 mmol/L (22-30); Chloride 99 mmol/L (98-107); Estimated Glomerular Filt Rate 44; Glucose 266 mg/dL (65-110); Phosphorus 4.5 mg/dL (2.5-4.5); Sodium 133 mmol/L (137-145); Uric Acid 5.2 mg/dL (2.5-7.5)
[2022-01-27 15:47] LABS: Vitamin D 25 Hydroxy 40.1 ng/mL
[2022-01-27 16:41] LABS: Complement C3 132 mg/dL (88-165)
[2022-01-31 02:52] LABS: Alpha 1 Globulin 0.3 g/dL (0.2-0.3); Alpha 2 Globulin 0.9 g/dL (0.5-0.9); Beta 1 Globulin 0.5 g/dL (0.4-0.6); Gamma Globulin 1.1 g/dL (0.8-1.7); Protein, Total 7.2 g/dL (6.1-8.1)
== END 2022-01-27 14:19 | disposition home or self-care (01) ==
LOC: ANHIMG 14:24
PROVIDERS: PCP Pediatrics
DX: N18.31 Chronic kidney disease, stage 3a (principal)
CPT/HCPCS: 36415; 76775; 80069; 82306; 83735; 83970; 84155; 84165; 84550; 85027; 86160

== ENCOUNTER 2022-12-14 02:46 | Day surgery (SDC) | payer MEDICARE, SELFPAY ==
[2022-12-03 15:02] VITALS: BMI 29.2
--- NOTE | 2022-12-10 11:10 | SUR.PREOP ---
Patient called regarding upcoming procedure. Message left on patient' s voicemail regarding appointment times and procedure prep. Call back number given.
[2022-12-14 12:00] VITALS: BP 136/79; PULSE 64; RESP 18; TEMP 36.4; O2SAT 96
[2022-12-14] MEDS: LACTATED RINGERS 1,000 ML 150 ML IV CONT (12:07)
[2022-12-14 12:21] LABS: Glucose Point of Care 98 mg/dl (65-105)
--- NOTE | 2022-12-14 12:32 | PM.HPGS ---
History of Present Illness History of Present Illness Consent: Risks, benefits, and alternatives have been discussed and questions answered. Patient agrees to proceed with procedure. Chief complaint: change in bowel habits Narrative: May Parmar is a 77 year old female Presents for colonoscopy. Patient reports intermittent diarrhea alternating with constipation. This sometimes contributes to rather significant abdominal pain. Patient denies any blood in her stools. Denies any weight loss. Previous colonoscopy 2019 revealed extensive diverticulosis. At that time fiber supplementation advised. Is unclear patient has implemented this therapy. She does state that after diarrhea stools she will take Imodium and subsequently become constipated. Family history is noncontributory. Review of Systems Review of Systems: Review of systems noncontributory. [facility] Past Medical History Medical History Chronic kidney disease, stage 3 Baseline creatinine is around 1.10. Chronic obstructive pulmonary disease Depression Diastolic congestive heart failure Echocardiogram in August 2016 showed normal left ventricular systolic function and size with without wall motion abnormalities, moderate concentric left ventricular hypertrophy, and impaired diastolic relaxation grade 1 with an EF estimated 65%. Hypercholesterolemia Hypertension Hypothyroidism Irritable bowel syndrome Migraines Nephrolithiasis Spinal stenosis Type 2 diabetes mellitus Surgical History Surgical History (Updated 12/24/20 @ 16:00 by Shweta Sykes PA-C) History of arthroscopy of left knee (04/2002) ACL repair. History of bilateral tubal ligation (1973) History of bladder suspension procedure History of carpal tunnel release (2010) History of colonoscopy (12/28/19) Extensive sigmoid diverticulosis, per Dr. Gatica. History of esophagogastroduodenoscopy (12/20/19) Unremarkable, per Dr. Gatica. History of evacuation of hematoma (01/2011) And decompression of lumbar hematoma. History of hysterectomy History of laparoscopic cholecystectomy (11/2003) History of left heart catheterization (2002) Unremarkable per patient. History of mandibular surgery (1979) Bilateral TMJ surgery. History of spinal surgery Laser spine surgery at L4-L5 x3. History of tonsillectomy History of total right hip arthroplasty (2007) History of tympanoplasty of right ear (11/2008) Family History Family History (Updated 12/24/20 @ 15:58 by Shweta Sykes PA-C) Sibling Mesothelioma Father Family history of cardiovascular disease Mother Family history of congestive heart failure Breast cancer Thyroid cancer Social History Social History (Updated 12/24/20 @ 21:08 by Shweta Sykes PA-C) Social History: Surrogate decision maker: Faiza Patino, daughter. Code status: Full code. Smoking status: Never smoker Second hand tobacco smoke exposure: Yes (Father) Alcohol intake: current Drinks per week: 0 Substance use: never Substance use type: does not use Living arrangements: with family Additional living arrangements comments: The patient lives in [place] with her . 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 Spiritual care concerns: No Meds Home Medications and Allergies Home Medications Medication Instructions Recorded Confirmed Type amitriptyline 25 mg tablet 25 mg PO BID 12/17/19 12/03/22 History mecobalamin (vitamin B12) 1,000 500 mcg PO DAILY 12/17/19 12/03/22 History mcg chewable tablet melatonin 10 mg tablet 5 mg PO HS PRN Insomnia 12/17/19 12/03/22 History sertraline 100 mg tablet 100 mg PO DAILY 12/17/19 12/03/22 History tizanidine 4 mg tablet 4 mg PO HS Migraine 12/17/19 12/03/22 History topiramate 25 mg tablet 25 mg PO BID Migraine 12/17/19 12/03/22 History albuterol sulfate 90 mcg/actuation 1 puff inhalation
--- NOTE | 2022-12-14 13:48 | SUR.PREOP ---
Patient was updated that Dr Gatica is running behind and was updated to plan of care.
[2022-12-14 14:19] VITALS: BP 150/78; PULSE 62; RESP 16; O2SAT 97
[2022-12-14 14:29] VITALS: BP 148/79; PULSE 58; RESP 16; O2SAT 97
== END 2022-12-14 14:45 | disposition home or self-care (01) ==
PROVIDERS: PCP Pediatrics; Visit Provider Internal Medicine Gastroenterology
PROC: 0DJD8ZZ Inspection of Lower Intestinal Tract, Via Natural or Artificial Opening Endoscopic (ICD-10-PCS; CPT 45378; principal; 2022-12-14 13:00)
DX: R19.7 Diarrhea, unspecified (principal); K59.00 Constipation, unspecified; K64.8 Other hemorrhoids; K57.30 Diverticulosis of large intestine without perforation or abscess without bleeding; I13.0 Hypertensive heart and chronic kidney disease with heart failure and stage 1 through stage 4 chronic kidney disease, or unspecified chronic kidney disease; I50.30 Unspecified diastolic (congestive) heart failure; E11.22 Type 2 diabetes mellitus with diabetic chronic kidney disease; N18.30 Chronic kidney disease, stage 3 unspecified; J44.9 Chronic obstructive pulmonary disease, unspecified; E78.00 Pure hypercholesterolemia, unspecified; E03.9 Hypothyroidism, unspecified; F32.A Depression, unspecified; Z79.51 Long term (current) use of inhaled steroids; Z79.85 Long-term (current) use of injectable non-insulin antidiabetic drugs
CPT/HCPCS: 45378; 82948; J2704; J7120

== ENCOUNTER 2023-03-21 15:33 | Outpatient (CLI) | payer MEDICARE, SELFPAY ==
--- NOTE | ~2023-03-21 | MR_ITS ---
EXAMINATION: MR knee RT wo con DATE: 03/21/2023 16:19 INDICATION: Right knee pain TECHNIQUE: Magnetic resonance imaging (MRI) of the right knee was performed without intravenous contr ast. Sequences included coronal PD-weighted FSE, coronal PD-weighted FS FSE, sagittal T2-weighted FS E, sagittal PD-weighted FS FSE and axial PD weighted fat saturated FSE. COMPARISON: None. FINDINGS: Medial compartment: Medial extrusion of the body medial meniscus with complete radial tear/avulsion at the posterior root of the medial meniscus. There is intrasubstance increased signal in the more medial posterior horn a nd posterior body of the medial meniscus most likely related to mucoid degeneration with no definitiv e contact the articular surface to more specifically suggest additional tear. Partial-thickness carti nancie loss with smooth chondral surface and without degenerative subchondral changes along the margins of the medial tibial plateau. Small region of deep chondral ulceration without degenerative subchond ral changes at the anterolateral aspect of the anterior weightbearing medial femoral condyle. Chondra l swelling with heterogeneous signal at the lateral margin of the central weightbearing medial femora l condyle. Lateral compartment: Lateral meniscus is normal. Articular cartilage is normal. Patellofemoral compartment: Shallow chondral ulceration and partial-thickness chondral fissuring along the caudal aspect of the m edial trochlea. Additional partial thickness chondral ulceration with deep fissuring but without dege nerative subchondral changes at the medial and lateral patellar facets and intervening apical ridge. Ligaments and tendons: Anterior and posterior cruciate ligaments are normal. The medial and fibular collateral ligament comp kenneth are normal. Mild tendinopathy and small enthesophytes at the patellar insertion of the distal chano driceps tendon. The visualized medial and lateral hamstring tendons as well as the iliotibial band ar e normal. Fluid: Small right knee joint effusion with mild synovitis at the suprapatellar pouch. No loose osteochondra l bodies identified. There is a medial plical band which extends across the medial rim of the medial trochlea. Osseous/other: Bone alignment is normal. No fracture or pathologic marrow replacing process. IMPRESSION: 1. Full-thickness radial tear/avulsion at the posterior root of the medial meniscus. 2. 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 3. Chronic mild distal quadriceps enthesopathy. Reviewed, dictated and finalized at location A. POT OPERATOR IMPRESSION: 1. Full-thickness radial tear/avulsion at the posterior root of the medial meni scus. 2. Mild osteoarthritis with regions of moderate grade chondromalacia in the med ial and patellofemoral compartments. 3. Chronic mild distal quadriceps enthesopathy.
== END 2023-03-21 15:34 | disposition home or self-care (01) ==
PROVIDERS: PCP Pediatrics
DX: S83.241A Other tear of medial meniscus, current injury, right knee, initial encounter (principal); X58.XXXA Exposure to other specified factors, initial encounter; M17.11 Unilateral primary osteoarthritis, right knee
CPT/HCPCS: 73721

== ENCOUNTER 2024-03-13 13:51 | Emergency (ER) | payer MEDICARE, SELFPAY ==
--- NOTE | ~2024-03-13 | CT_ITS ---
History: Lower back pain radiating to the left lower extremity PROCEDURE: CT lumbar spine without intravenous contrast. COMPARISON: 02/05/2011 TECHNIQUE: Multiple contiguous axial images of the lumbar spine were performed without the administration of int ravenous contrast. DLP: 715 mGy-cm FINDINGS: Straightening of the normal lordotic curvature of the lumbar spine is identified, possibly muscular i n origin. No acute compression fractures are present. No soft tissue abnormality is noted. Fixation hardware identified at the level of L3, L4 and L5. Postlaminectomy change is also present at these levels. Significant facet arthropathy is noted. No periprosthetic fracture is appreciated. Impression: No acute fracture. No periprosthetic fracture. Reviewed, dictated and finalized at location A. ERCIAL ELECTRICIAN Impression: No acute fracture. No periprosthetic fracture.
--- OUTSIDE RECORDS SUMMARY | 2024-03-13 14:04 | XMS_ITS | Referral Summary ---
Author Organization [facility] Address [address] [place] [address] Care Team Providers Care Manager Trade Marketing Name Role Phone Jayy Haider MD Primary Care Provider Allergies Active Allergy Reactions Criticality Noted Date Comments Ampicillin Rash,Unknown Medium 04/13/2007 Cschpiwmss-Mjgitmliz-Srovzd on Unknown 06/27/2014 Benzoyl Peroxide (Bulk) Unknown 07/20/2011 Bupropion Unknown 06/18/2013 rash Ciprofibrate Unknown 06/18/2013 Headache Ciprofloxacin Headache,Unknown,R elian Medium 04/13/2007 Clarithromycin Other (See comments),Unknown, Rash Medium 09/03/2009 Reaction: Other Metalic Taste Dihydroergotamine Unknown 06/27/2014 Divalproex Unknown 06/27/2014 Amitriptyline Unknown 04/13/2007 Erythromycin Unknown 06/27/2014 Gabapentin Other (See comments) Low 02/28/2019 Reaction: Other Hydrogen Peroxide (Bulk) Swelling Medium 02/28/2019 Iodine Unknown 06/27/2014 Nitrofurantoin Macrocrystal Unknown 06/28/19 15 Nsaids (Non-Steroidal Anti-Inflammatory Drug) Unknown 06/19/2013 Decreased renal function Pregabalin Other (See comments),Unknown Low 04/13/2007 Reaction: Other Sulfa (Sulfonamide Antibiotics) Hives,Unknown Medium 04/13/2007 Sumatriptan Unknown,Other (See comments) High 02/01/2010 I've only had it once and I was told to never take it again, that my B/P was so high they were afraid I was going to have a stroke. Medications amitriptyline (ELAVIL) 25 mg tablet Active chlordiazePOXID E (LIBRIUM) 10 mg capsule Active levothyroxine (SYNTHROID) 112 mcg tablet Take 88 mcg by mouth Active losartan (COZAAR) 100 mg tablet Active sertraline (ZOLOFT) 100 mg tablet Active tiZANidine (ZANAFLEX) 4 mg tablet Active aspirin 81 mg chewable tablet Acti ve albuterol 1.25 mg/3 mL nebulizer solution Inhale 1 ampule every 6 hours as needed Active atorvastatin (LIPITOR) 10 mg tablet 9 Active cyanocobalamin (Vitamin B-12) 1,000 mcg tablet Take 1 tablet (1,000 mcg total) by mouth daily Active carvediloL (COREG) 6.25 mg tablet 0 Active thiamine (VITAMIN B-1) 250 mg tablet Take 1 tablet (250 mg total) by mouth daily Active cloNIDine (CATAPRES) 0.1 mg tablet TAKE 1 TABLET (0.1 MG) BY ORAL ROUTE UP TO 3 TIMES A DAY IF BLOOD PRESSURE IS OVER 160/94 1 Active ipratropium-alb uteroL (DUO-NEB) 0.5-2.5 mg/3 mL nebulizer solution INHALE CONTENTS OF 1 VIAL (3 ML) BY NEBULIZATION ROUTE 4 TIMES PER DAY NEEDED 1 Active topiramate (TOPAMAX) 25 mg tablet 1 Active cefdinir (OMNICEF) 300 mg capsule 2 Active Spiriva with HandiHaler 18 mcg per inhalation capsule 2 Active predniSONE (DELTASONE) 20 mg tablet 2 Active Farxiga 10 mg tablet 2 Active semaglutide (OZEMPIC) 2 mg/dose (8 mg/3 mL) pen injector injection Inject 2.5 mg under the skin once a week Active montelukast (SINGULAIR) 10 mg tablet Take 1 tablet (10 mg total) by mouth 3 Active ondansetron (ZOFRAN) 4 mg tablet Take 1 tablet (4 mg total) by mouth every 8 (eight) hours as needed for nausea 3 Active Active Problems Problem Noted Date Diagnosed Date Medication overuse headache 06/18/2013 Overview (03/09/2019): Leonelaaladriel gibson, duragesic patch Osteoarthritis of lumbar spine 10/23/2012 Surgical follow-up care 02/04/2012 Neck pain 11/24/2011 Osteomyelitis 07/20/2011 Methicillin susceptible Staphylococcus aureus in fection 03/18/2011 Lumbago 04/09/2010 Lumbar radiculopathy 04/09/2010 Arthralgia of hip 03/09/2010 Chronic pain 01/31/2010 DM type 2 (diabetes mellitus, type 2) 01/31/2010 Nausea, vomiting and diarrhea 01/31/2010 Sciatica 09/03/2009 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 Carpal tunnel syndrome 09/03/2009 Immunizations Name Administration Dates Next Due Influenza, Quadrivalent, Spl it, Preservative Free, Intramuscular 12/06/2018,01/10/2016 Influenza, Trivalent, High D ose, Split, Preservative Free, Intramuscular 12/12/2017 Influenza, Trivalent, IM (MDV) 01/20/2012 Social History Tobacco Use Types Packs/Day Years Used Date Smoking Tobacco: Never Passive Smoke Exposure: Past Smokeless Tobacco: Never Tobacco Cessation:Counseling Given: Not Answered Alcohol Use Standard Drinks/Week Comments Yes 0 (1 standard drink = 0.6 oz pur e alcohol) Comments Unknown Sex and Gender Information Value Date Recorded Sex Assigned at Not on file Legal Sex Female 3:40 AM PROJECT COORDINATOR Gender Identity Female 05/01/2020 9:28 AM CDT Sexual Orientation Straight 11/04/2020 12 :56 PM CDT Last Filed Vital Signs Vital Sign Reading Time Taken Comments Blood Pressure 120/52 01/05/2023 10:50 AM PROJECT COORDINATOR Pulse 68 01/05/2023 10:50 AM PROJECT COORDINATOR Temperature 36.7 ??C (98 ??F) 01/05/2023 10:50 AM PROJECT COORDINATOR Respiratory Rate 18 11/11/2022 1:23 PM CDT Oxygen Saturation 94% 01/05/2023 10:50 AM PROJECT COORDINATOR Inhaled Oxygen Concentration - - Weight 83.9 kg (185 lb) 01/05/2023 10:50 AM PROJECT COORDINATOR Height 170.2 cm (5' 7 ) 01/05/2023 10:50 AM PROJECT COORDINATOR Body Mass Index 28.98 01/05/2023 10:50 AM PROJECT COORDINATOR Plan of Treatment Not on file Insurance MEDICARE [facility] OPEN ACCESS [facility] MEDICARE SUPPLEMENT INSURANCE MEDICARE [facility] MEDICARE SUPPLEMENT INSURANCE [place]LE[place] SALAS [id number] MEDICARE [facility] MEDICARE SUPPLEMENT INSURANCE Care Teams Manager Trade Marketing Relationship Specialty Start Date End Date Jayy Haider MD [address] [place] [address] PCP - General 08/05/16
--- OUTSIDE RECORDS SUMMARY | 2024-03-13 14:04 | XMS_ITS | Clinical Summary ---
Author Organization [facility] Address [address] [address] Phone Care Team Providers Care Electromechanical Equipment Assembler Name Role Phone Carine Pratt MD Unavailable [phone] Social History Tobacco Use Types Packs/Day Years Used Date Smoking Tobacco: Never Assessed Comments Unknown Sex and Gender Information Value Date Recorded Sex Assigned at Not on file Legal Sex Female 12:57 PM CDT Gender Identity Not on file Sexual Orientation Not on file Plan of Treatment Health Maintenance Due Date Last Done Comments DEXA Bone Density 1945 Hepatitis C Virus (HCV) Screening 1945 TdaP Immunization 1945 Pneumococcal Immunization (5 0+ years) (1 of 1 - PCV) 02/14/1996 Zoster Immunization (1 of 2) 02/14/1996 Respiratory Syncytial Virus (RSV) Immunization (Adult) (1 - 1-dose 75+ series) 2021 Influenza Immunization (#1) 2023 SARS-COV-2 Immunization ( - season) 2023 Hepatitis B Immunization Aged Out No longer eligible based on patient's age to complete this topic Meningococcal Immunization (ACWY) Aged Out No longer eligible based on patient's age to complete this topic Rotavirus Immunization Aged Out No lo nger eligible based on patient's age to complete this topic Insurance MEDICARE [facility] Care Teams Electromechanical Equipment Assembler Relationship Specialty Start Date End Date Carine Pratt MD [address] [facility] [address] [place] [address] Pulmonary Disease 09/22/16
--- OUTSIDE RECORDS SUMMARY | 2024-03-13 14:04 | XMS_ITS | Clinical Summary ---
Author Organization [facility] Address [address] [place] [address] Care Team Providers Care Clinical Field Specialist Name Role Phone Jayy Haider MD Primary Care Provider Allergies Active Allergy Reactions Criticality Noted Date Comments Ampicillin Rash,Unknown Medium 04/13/2007 Koivzitmas-Scijmmrfk-Qsiagc on Unknown 06/27/2014 Benzoyl Peroxide (Bulk) Unknown [...] Intramuscular 12/12/2017 Influenza, Trivalent, IM (MDV) 01/20/2012 Surgical History Surgery Date Site/Laterality Comments NM TOTAL ABDOMINAL HYSTERECT W/WO RMVL TUBE OVARY Hysterectomy - (Added by TW Conv) NM TONSILLECTOMY PRIMARY/SECONDARY <AGE 12 Tonsillectomy - (Added by TW Conv) KNEE ARTHROPLASTY Knee Arthroplasty - (Added by TW Conv) BLADDER SURGERY Bladder Surgery - (Added by TW Conv) NM CHOLECYSTECTOMY Cholecystectomy - (Added by TW Conv) ANTERIOR CRUCIATE LIGAMENT REPAIR Primary Repair Of Knee Ligament Cruciate Anterior - (Added by TW Conv) MANDIBLE SURGERY Jaw Surgery - (Added by TW Conv) NM NEUROPLASTY &/TRANSPOS ME NATACHA NRV CARPAL TUNNE Neuroplasty Decompression Median Nerve At Carpal Tunnel - (Added by TW Conv) SPINE SURGERY Spine Repair - (Added by TW Conv) EAR SURGERY Ear Surgery - (Added by TW Conv) HYSTERECTOMY BACK SURGERY CARPAL TUNNEL RELEASE Medical History Medical History Date Comments Trigeminal neuralgia Trigeminal neuralgia - (Added by TW Conv) Personal history of other en docrine, nutritional and metabolic disease History of diabetes mellitus - (Added by TW Conv) Personal history of other di seases of the circulatory system History of hypertension - (A dded by TW Conv) Personal history of other di seases of the circulatory system History of hypertension - (A dded by TW Conv) Pain in extremity Limb pain - (A dded by TW Conv) Encounter for other orthopedic aftercare Orthopedic aftercare - (Added by TW Conv) Aftercare following joint re placement surgery Aftercare following joint re placement - (Added by TW Conv) Migraine headache Diabetes mellitus (HCC) Hypertension Thyroid disease Family History Medical History Relation Name Comments enlarged heart Brother at a ge 49 years old Heart disease Father Breast cancer Mother Heart disease Other 1 Heart Disease - dad (Added by TW Conv) Hypertension Other 2 Hypertension - mom (Added by TW Conv) Cancer Other 3 Cancer - (Added by TW Conv) Relation Name Status Comments Brother Father Mother Other 1 Other 2 Other 3 Social History Tobacco Use Types Packs/Day Years Used Date Smoking Tobacco: Never Passive Smoke Exposure: Past Smokeless Tobacco: Never Tobacco Cessation:Counseling Given: Not Answered Alcohol Use Standard Drinks/Week Comments Yes 0 (1 standard drink = 0.6 oz pur e alcohol) Comments Unknown Sex and Gender Information Value Date Recorded Sex Assigned at Not on file Legal Sex Female 3:40 AM GUEST SERVICE HOST Gender Identity Female 05/01/2020 9:28 AM CDT Sexual Orientation Straight 11/04/2020 12 :56 PM CDT Obstetrics History Last Filed Vital Signs Vital Sign Reading Time Taken Comments Blood Pressure 120/52 01/05/2023 10:50 AM GUEST SERVICE HOST Pulse 68 01/05/2023 10:50 AM GUEST SERVICE HOST Temperature 36.7 ??C (98 ??F) 01/05/2023 10:50 AM GUEST SERVICE HOST Respiratory Rate 18 11/11/2022 1:23 PM CDT Oxygen Saturation 94% 01/05/2023 10:50 AM GUEST SERVICE HOST Inhaled Oxygen Concentration - - Weight 83.9 kg (185 lb) 01/05/2023 10:50 AM GUEST SERVICE HOST Height 170.2 cm (5' 7 ) 01/05/2023 10:50 AM GUEST SERVICE HOST Body Mass Index 28.98 01/05/2023 10:50 AM GUEST SERVICE HOST Plan of Treatment Health Maintenance Due Date Last Done Comments Albumin Creatinine Ratio, Urine 1946 Depression Screening 1946 Fall Risk Assessment 1946 Hemoglobin A1C 1946 Hepatitis C Screening 1946 Osteoporosis Screening-Bone Density Scan 1946 eGFR 1946 Dilated Eye Exam 1946 Foot Exam 1945 Pneumococcal vaccine 65+ (1 of 2 - PCV) 02/14/1952 DTaP/Tdap/Td Vaccine (1 - Tdap) 1957 Hepatitis B Screening 02/14/1964 Zoster Vaccine (1 of 2) 02/14/1996 Well Visit 65+ 2011 Influenza Vaccine (#1) 2023 9, 12/12/2017, 01/10/2016, Additional history exists Lipid Panel 11/02/2023 11/01/2022, 05/29/2019 Insurance MEDICARE [facility] Address: [facility] [address] [place] [address] [facility] OPEN ACCESS [facility] HMO/PPO Address[facility] [id number] [place] [address] [facility] MEDICARE SUPPLEMENT INSURANCE MEDICARE [facility] MEDICARE SUPPLEMENT INSURANCE MEDICARE [facility] MEDICARE SUPPLEMENT INSURANCE Care Teams Clinical Field Specialist Relationship Specialty Start Date End Date Jayy Haider MD [address] [place] [id number] PCP - General 08/05/16
[2024-03-13 14:26] VITALS: BP 132/76; PULSE 75; RESP 18; TEMP 36.3; O2SAT 96
--- NOTE | 2024-03-13 17:36 | ED_ITS ---
HPI - Back Pain/Injury General Chief Complaint: Back Pain/Injury Stated Complaint: Back pain-radiates down both legs Time Seen by Provider: 03/13/24 17:36 Focused HPI: Patient is a 79 y/o female who presents to the ED with c/o lower back pain. Patient reports history of previous back fusion and issues with sciatica. Reports having increased pain throughout her lower back over the last 1 week. Worsening significantly over the past 2 days. 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 May have injured herself while moving/adjusting him. Has been taking Tylenol for the pain without improvement. Pain radiates down both legs, worse throughout left lower leg. Denies numbness, saddle anesthesia, bowel or bladder incontinence. Denies abdominal pain, dysuria, hematuria. GENERAL: Elderly, uncomfortable appearing, in moderate acute distress d/t pain. HEAD: Normocephalic, atraumatic. CHEST: Clear to auscultation. ?No respiratory distress. HEART: Regular rate and rhythm.? MSK: Diffuse tenderness throughout lumbosacral region, no appreciable midline spinal tenderness. Sensation intact. NEURO: ?Alert and oriented x3. Patient screened in triage and initial orders placed.? ?Additional care and disposition to be based upon?diagnostic testing and treatment. Source: patient Mode of arrival: ambulatory Limitations: no limitations History of Present Illness HPI Narrative: Patient is a 79 y/o female who presents to the ED with c/o lower back pain. Patient reports history of previous back fusion and issues with sciatica. Reports having increased pain throughout her lower back over the last 1 week. Worsening significantly over the past 2 days. 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 May have injured herself while moving/adjusting him. Has been taking Tylenol for the pain without improvement. Pain radiates down both legs, worse throughout left lower leg. Denies numbness, saddle anesthesia, bowel or bladder incontinence. Denies abdominal pain, dysuria, hematuria. Related Data Home Medications ?Medication ?Instructions ?Recorded ?Confirmed ?Last Taken ?Type amitriptyline 25 mg tablet 25 mg PO BID 12/17/19 12/03/22 12/13/22 History mecobalamin (vitamin B12) 1,000 500 mcg PO DAILY 12/17/19 12/03/22 12/13/22 History mcg chewable tablet melatonin 10 mg tablet 5 mg PO HS PRN Insomnia 12/17/19 12/03/22 12/13/22 History sertraline 100 mg tablet 100 mg PO DAILY 12/17/19 12/03/22 12/13/22 History tizanidine 4 mg tablet 4 mg PO HS Migraine 12/17/19 12/03/22 12/13/22 History topiramate 25 mg tablet 25 mg PO BID Migraine 12/17/19 12/03/22 12/13/22 History albuterol sulfate 90 mcg/actuation 1 puff inhalation QID PRN SOB 12/24/20 12/03/22 Unknown History aerosol inhaler budesonide-formoterol HFA 160 1 puff inhalation DAILY 12/24/20 12/03/22 Unknown History mcg-4.5 mcg/actuation aerosol inhaler (Symbicort) ipratropium 0.5 mg-albuterol 3 mg 3 ml inhalation QID PRN SOB 12/24/20 12/03/22 12/23/20 20:30 History (2.5 mg base)/3 mL nebulization soln amlodipine 10 mg tablet 10 mg PO DAILY 12/03/22 12/03/22 12/13/22 History atorvastatin 20 mg tablet 20 mg PO DAILY 12/03/22 12/03/22 12/13/22 History carvedilol 12.5 mg tablet 12.5 mg PO BID 12/03/22 12/03/22 12/14/22 History cholecalciferol (vitamin D3) 50 50 mcg PO BID 12/03/22 12/03/22 12/13/22 History mcg (2,000 unit) tablet (Vitamin D3) cyanocobalamin (vitamin B-12) 1,000 mcg PO DAILY 12/03/22 12/03/22 12/13/22 History 1,000 mcg tablet (Vitamin B-12) levocetirizine 5 mg tablet (Xyzal) 5 mg PO DAILY 12/03/22 12/03/22 12/13/22 History levothyroxine 88 mcg capsule 88 mcg PO DAILY 12/03/22 12/03/22 12/14/22 History loratadine 10 mg tablet 10 mg PO QAM PRN allergies 12/03/22 12/03/22 12/13/22 History losartan 50 mg tablet 50 mg PO DAILY 12/03/22 12/03/22 12/13/22 History nitroglycerin 0.4 mg sublingual 0.4 mg sublingual Q5-15M PRN Chest 12/03/22 12/03/22 Unknown History tablet Pain semaglutide 0.25 mg or 0.5 mg (2 0.25 mg subcut WEEKLY 12/03/22 12/03/22 12/11/22 History mg/3 mL) subcutaneous pen injector (OzempMetago) thiamine HCl (vitamin B1) 250 mg 250 mg PO DAILY 12/03/22 12/03/22 12/13/22 History tablet Allergies Allergy/AdvReac Type Severity Reaction Status Date / Time dihydroergotamine Allergy Intermediate Hypertensio Verified 03/13/24 14:35 n amitriptyline Allergy Mild Hives Verified 03/13/24 14:35 ciprofloxacin Allergy Mild Migraine Verified 03/13/24 14:35 erythromycin base Allergy Mild Rash Verified 03/13/24 14:35 gabapentin Allergy Mild Confusion Verified 03/13/24 14:35 hydrogen peroxide Allergy Mild Swelling Verified 03/13/24 14:35 nitrofurantoin Allergy Mild Confusion Verified 03/13/24 14:35 Penicillins Allergy Mild Unknown Verified 03/13/24 14:35 pregabalin Allergy Mild Confusion Verified 03/13/24 14:35 Quinolones Allergy Mild Migraine Verified 03/13/24 14:35 Sulfa (Sulfonamide Allergy Mild Hives Verified 03/13/24 14:35 Antibiotics) sumatriptan Allergy Mild Migraine Verified 12/14/22 11:56 ampicillin Allergy Unknown Unknown Verified 03/13/24 14:35 clarithromycin Allergy Unknown Unknown Verified 03/13/24 14:35 divalproex sodium Allergy Unknown Hypertensio Verified 03/13/24 14:35 n Review of Systems Review of Systems: All systems reviewed & are unremarkable except as noted in HPI. All systems reviewed & are unremarkable except as noted in HPI and below PMFSH Past Medical History Medical History Chronic kidney disease, stage 3 Baseline creatinine is around 1.10. Irritable bowel syndrome Chronic obstructive pulmonary disease Spinal stenosis Nephrolithiasis Migraines Depression Diastolic congestive heart failure Echocardiogram in August 2016 showed normal left ventricular systolic function and size with without wall motion abnormalities, moderate concentric left ventricular hypertrophy, and impaired diastolic relaxation grade 1 with an EF estimated 65%. Hypertension Type 2 diabetes mellitus Hypothyroidism Hypercholesterolemia Surgical History Surgical History History of esophagogastroduodenoscopy (12/20/19) Unremarkable, per Dr. Gatica. History of carpal tunnel release (2010) History of bladder suspension procedure History of evacuation of hematoma (01/2011) And decompression of lumbar hematoma. History of mandibular surgery (1979) Bilateral TMJ surgery. History of total right hip arthroplasty (2007) History of spinal surgery Laser spine surgery at L4-L5 x3. History of bilateral tubal ligation (1973) History of colonoscopy (12/28/19) Extensive sigmoid diverticulosis, per Dr. Gatica. History of tympanoplasty of right ear (11/2008) History of laparoscopic cholecystectomy (11/2003) History of arthroscopy of left knee (04/2002) ACL repair. History of tonsillectomy History of left heart catheterization (2002) Unremarkable per patient. History of hysterectomy Family History Family History Sibling Mesothelioma Father Family history of cardiovascular disease Mother Family history of congestive heart failure Breast cancer Thyroid cancer Social History Social History Social History: Surrogate decision maker: Faiza Patino, daughter. Code status: Full code. Smoking status: Never smoker Second hand tobacco smoke exposure: Yes (Father) Alcohol intake: current Drinks per week: 0 Substance use: never Substance use type: does not use Living arrangements: with family Additional living arrangements comments: The patient lives in [place] with her . 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. Spiritual care concerns: No Exam Narrative: GENERAL: Elderly, uncomfortable appearing, in moderate acute distress d/t pain. HEAD: Normocephalic, atraumatic. CHEST: Clear to auscultation. ?No respiratory distress. HEART: Regular rate and rhythm.? Peripheral pulses intact. MSK: Discomfort reported with any movement. Diffuse tenderness throughout lumbosacral region, no appreciable midline spinal tenderness. Sensation intact. No bony deformities or palpable step-offs. Chronic well-healed midline surgical scar. No warmth or erythema. Strength 5/5 in lower extremities bilaterally. SKIN: Clean dry intact NEURO: ?Alert and oriented x3. No focal deficits. No ataxic movements. Steady supported gait. PSYCHIATRIC: Normal mood and affect. Course Vital Signs Vital signs: Vital Signs Temperature 97.3 F L 03/13/24 14:26 Pulse Rate 75 03/13/24 14:26 Respiratory Rate 18 03/13/24 14:26 Blood Pressure 132/76 03/13/24 14:26 Pulse Oximetry 96 03/13/24 14:26 Oxygen Delivery Room Air 03/13/24 14:26 Temperature 97.7 F 03/13/24 19:36 Pulse Rate 63 03/13/24 19:36 Respiratory Rate 14 03/13/24 19:36 Blood Pressure 173/99 H 03/13/24 19:36 Pulse Oximetry 95 03/13/24 19:36 Oxygen Delivery Room Air 03/13/24 14:26 MDM - Back Pain/Injury MDM Narrative Medical decision making narrative: MSE by FUNMI in triage. Care resumed by myself. Patient with acute on chronic lower back pain/lumbar radiculopathy x1week. She is neurologically intact. No evidence of cord compression or cauda equina. No red flag symptoms. No signs of sx's to suggest GI/ source. Patient given pain control in the ED. Lumbar spine CT without acute fracture or complications of previous surgery. Pain is most consistent with musculoskeletal etiology/lumbar strain. On reeval, she is feeling improved with supportive therapy. Discussed potential for discharge home versus admission for further pain control, PT/OT. Utilized shared decision making with patient. She would prefer to go home. 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 She does feel comfortable going home and feels she will be able to manage and perform all ADLs as necessary. Will d/c with pain medication for continued management at home. Recommended close f/u with pcp for further evaluation. Discussed strict return precautions including signs/sx's of cauda equina. Patient voiced understanding. Discharged in stable condition. Remains neurologically intact at time of D/C. Medical Records Attestation: I reviewed the patient's medical records. Imaging Data Attestation: I personally reviewed and interpreted this imaging study as follows: Radiologist's impression: ITS Impressions Lumbar Spine CT 03/13/24 19:07 Impression: No acute fracture. No periprosthetic fracture. Discharge Plan Discharge Clinical Impression: Lumbar radiculopathy Strain of lumbar region Qualifiers: Encounter type: initial encounter Qualified Code(s): S39.012A - Strain of mu scle, fascia and tendon of lower back, initial encounter Patient Disposition: Home, Self-Care Condition: Stable Instructions: Antibiotic Form, Sciatica (ED), Acute Low Back Pain (ED), Lumbar Radiculopathy (ED), Lower Back Exercises (ED) Additional Instructions: Take steroids as prescribed for the next several days for anti-inflammatory effect. Continue Tylenol and Ibuprofen as needed for pain. You may use [place] as needed for more severe pain. This does also contain Tylenol, so use caution dosing. You may use ice/heat, lidocaine patches to area of pain. Take muscle relaxers as needed and prescribed. Recommend taking these at night as they may cause sedation. Do not drive, operate heavy machinery, drink alcohol while on muscle relaxers as this may cause further sedation. Follow-up with your primary care doctor for further evaluation. Return to the ED if you experience worsening or severe pain, recurrent injury, numbness in groin or legs, going to the bathroom without meaning to, unable to keep down food or drink, or any other symptoms of concern. Patient Language: Singaporean Prescriptions: New hydrocodone-acetaminophen 5-325 mg tablet 1 tablet PO Q6H PRN (Reason: pain) Qty: 5 0RF methocarbamol 750 mg tablet 1,500 mg PO TID PRN (Reason: muscle spasm) Qty: 15 0RF lidocaine 5 % adhesive patch,medicated 1 patch topical DAILY Qty: 15 0RF Rx Instructions: leave on most painful area for up to 12 hrs methylprednisolone [Medrol (Ezequiel)] 4 mg tablets,dose pack See Rx Instructions PO .COMPLEX Qty: 21 0RF Rx Instructions: orally per package directions No Action sertraline 100 mg tablet 100 mg PO DAILY topiramate 25 mg tablet 25 mg PO BID Rx Instructions: For migraines tizanidine 4 mg tablet 4 mg PO HS Rx Instructions: For migraines amitriptyline 25 mg tablet 25 mg PO BID melatonin 10 mg Tablet 5 mg PO HS PRN (Reason: Insomnia) mecobalamin (vitamin B12) 1,000 mcg Tablet,Chewable 500 mcg PO DAILY ipratropium-albuterol 0.5 mg-3 mg(2.5 mg base)/3 mL solution for nebulization 3 ml INHALATION QID PRN (Reason: SOB) albuterol sulfate 90 mcg/actuation HFA aerosol inhaler 1 puff INHALATION QID PRN (Reason: SOB) budesonide-formoterol [Symbicort] 160-4.5 mcg/actuation HFA aerosol inhaler 1 puff INHALATION DAILY montelukast [Singulair] 10 mg Tablet 10 mg PO HS Qty: 30 0RF cyanocobalamin (vitamin B-12) [Vitamin B-12] 1,000 mcg Tablet 1,000 mcg PO DAILY thiamine HCl (vitamin B1) 250 mg Tablet 250 mg PO DAILY nitroglycerin 0.4 mg Tablet, Sublingual 0.4 mg SUBLINGUAL Q5-15M PRN (Reason: Chest Pain) Rx Instructions: do not exceed 3 doses per episode levocetirizine [Xyzal] 5 mg Tablet 5 mg PO DAILY cholecalciferol (vitamin D3) [Vitamin D3] 50 mcg (2,000 unit) Tablet 50 mcg PO BID levothyroxine 88 mcg Capsule 88 mcg PO DAILY Ozempic 0.25 mg or 0.5 mg (2 mg/3 mL) Pen Injector 0.25 mg SUBCUT WEEKLY Rx Instructions: for 4 weeks loratadine 10 mg tablet 10 mg PO QAM PRN (Reason: allergies) losartan 50 mg Tablet 50 mg PO DAILY atorvastatin 20 mg Tablet 20 mg PO DAILY carvedilol 12.5 mg Tablet 12.5 mg PO BID Rx Instructions: must administer with a meal/food amlodipine 10 mg Tablet 10 mg PO DAILY Follow-up/Referrals: Jayy Haider MD [Primary Care Provider] - Time of Disposition: 20:59
[2024-03-13] MEDS: HYDROcodone/acetaminophen (*CRX) 5-325 MG TABLET 1 TAB PO (18:17)
[2024-03-13] MEDS: CYCLOBENZAPRINE HCL 5 MG TABLET PO (18:17)
[2024-03-13] MEDS: methylPREDNISolone SOD SUCC 125 MG VIAL IM (18:18)
[2024-03-13] MEDS: KETOROLAC (*BKC) 60 MG/2 ML VIAL IM (18:18)
[2024-03-13 19:36] VITALS: BP 173/99; PULSE 63; RESP 14; TEMP 36.5; O2SAT 95
[2024-03-13] MEDS: diazePAM INJ (*CRX) 10 MG/2 ML SYRINGE 2 MG IM (20:34)
== END 2024-03-13 21:14 | disposition home or self-care (01) ==
PROVIDERS: Emergency Provider Physician Assistant; PCP Pediatrics
DX: S39.012A Strain of muscle, fascia and tendon of lower back, initial encounter (principal); M54.16 Radiculopathy, lumbar region; I13.0 Hypertensive heart and chronic kidney disease with heart failure and stage 1 through stage 4 chronic kidney disease, or unspecified chronic kidney disease; E11.22 Type 2 diabetes mellitus with diabetic chronic kidney disease; N18.30 Chronic kidney disease, stage 3 unspecified; I50.30 Unspecified diastolic (congestive) heart failure; Z79.85 Long-term (current) use of injectable non-insulin antidiabetic drugs; E03.9 Hypothyroidism, unspecified; E78.5 Hyperlipidemia, unspecified; J44.9 Chronic obstructive pulmonary disease, unspecified; F32.A Depression, unspecified; X58.XXXA Exposure to other specified factors, initial encounter
CPT/HCPCS: 72131; 96372; 99284; A9270; J1885; J2919; J3360

== ENCOUNTER 2024-06-26 13:41 | Outpatient (CLI) | payer MEDICARE, SELFPAY ==
--- NOTE | ~2024-06-26 | MM_ITS ---
EXAMINATION: MM screening jeb BI w alexa HISTORY: Screening TECHNIQUE: Craniocaudal and mediolateral oblique 3-D tomosynthesis images were obtained and synthetic 2-D images were generated. CAD analysis was submitted and interpreted. COMPARISON: Comparison to multiple prior studies sequentially, with oldest reviewed study dated 08/01. BREAST PARENCHYMAL COMPOSITION: Not Dense: The breasts are almost entirely fatty. FINDINGS: There is no evidence of suspicious mass, calcification, or architectural distortion to sugg est malignancy in either breast. There has been no suspicious interval change. IMPRESSION: 1. No mammographic evidence of malignancy. 2. Recommend routine screening mammography in one year. BI-RADS Category 1: Negative Reviewed, dictated and finalized at location B.
== END 2024-06-26 13:42 | disposition home or self-care (01) ==
LOC: ANHIMG 13:46
PROVIDERS: PCP Pediatrics; Visit Provider Obstetrics & Gynecology
DX: Z12.31 Encounter for screening mammogram for malignant neoplasm of breast (principal)
CPT/HCPCS: 77063; 77067

== ENCOUNTER 2024-08-24 13:45 | Outpatient (CLI) | payer MEDICARE, SELFPAY ==
--- NOTE | ~2024-08-24 | DEXA_ITS ---
Bone Density Report Name: GOPI COOL Age: 79 Sex: Female Ethnicity: White Date of : 1945 Indication: postmenopausal; screening for osteoporosis; height loss; prior fracture; hysterectomy; Referring Provider: MARIAA SLATER Study: Bone densitometry was performed. Exam Date: August 24, 2024 Accession number: [id number] Bone Density: Region BMD T-score Z-score Classification AP Spine(L3, L4) 0.994 -1.0 1.8 Normal Femoral Neck (Left) 0.667 -1.6 0.6 Osteopenia Total Hip (Left) 0.767 -1.4 0.5 Osteopenia World Health Organization criteria for BMD impression classify patients as: Normal (T-score at or above -1.0), Osteopenia (T-score between -1.0 and -2.5), or Osteoporosis (T-score at or below -2.5). 10-year Fracture Risk: FRAX not reported because: Prior hip or vertebral fracture Clinical Information Provided by Patient: Have had a previous hip or vertebral fracture Has had a low trauma fracture Has used the following medications: Vitamin D Has the following medical conditions: Hysterectomy Patient maximum height was 68 Menopause Age: 46 Onset of menses at age 18 Number of children 2 Missed period for more than 6 months in a row Impression: The patient has low bone mass, based on the Left Femoral Neck T-score. The patient has risk factors, including: previous fracture. Discussion: INCREASED RISK OF FRACTURE DUE TO HISTORY OF FRACTURE. The patient's previous fracture puts the patient at high risk of a future fracture. In untreated patients, the risk of osteoporotic fracture increases approximately two-fold for each 1.0 SD decrease in T-score. Low bone density is not the only risk factor for fracture; also consider factors such as patient's age, frailty or poor health, risk of falling, risk of injury, previous osteoporotic fracture, family history of osteoporosis, cigarette smoking, low body weight, etc. Not everyone with a low trauma fracture has osteoporosis; osteomalacia and other metabolic bone disorders should also be considered. Patients who have osteoporosis should be evaluated for specific diseases and conditions (secondary causes) that may cause or contribute to bone loss and fracture risk. National Osteoporosis Foundation (NOF) recommends pharmacologic intervention for patients with a prior hip or vertebral fracture regardless of BMD T-score. The patient should follow a healthful lifestyle (good nutrition with adequate calcium and vitamin D, and appropriate weight-bearing exercise). Follow-Up: Consider a repeat BMD and Vertebral Fracture Assessment (VFA) exam in 2 years or sooner if medically necessary, to reassess this patient's status. Reported by: TITO on 08/24/2024 3:20:00 PM. Reviewed, dictated and finalized at location A.
--- OUTSIDE RECORDS SUMMARY | 2024-08-24 13:49 | XMS_ITS | Referral Summary ---
Author Organization [facility] Address [address] [place] [address] Care Team Providers Care Manager Reading Name Role Phone Jayy Haider MD Primary Care Provider Allergies Active Allergy Reactions Criticality Noted Date Comments Ampicillin Rash,Unknown Medium 04/13/2007 Asatckcndo-Spqsskuke-Jwyvhp on Unknown 06/27/2014 Benzoyl Peroxide (Bulk) Unknown [...] Date Medication overuse headache 06/18/2013 Overview (03/09/2019): adriel Love, duragesic patch Osteoarthritis of lumbar spine 10/23/2012 Surgical follow-up care 02/04/2012 Neck pain 11/24/2011 Osteomyelitis 07/20/2011 Methicillin susceptible Staphylococcus aureus in fection 03/18/2011 Lumbago 04/09/2010 Lumbar radiculopathy 04/09/2010 Arthralgia of hip 03/09/2010 Chronic pain 01/31/2010 DM type 2 (diabetes mellitus, type 2) 01/31/2010 Nausea, vomiting and diarrhea 01/31/2010 Sciatica 09/03/2009 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 Carpal tunnel syndrome 09/03/2009 Immunizations Immunization Administration Dates Next Due Influenza, Quadrivalent, Spl [...] on file Legal Sex Female 3:40 AM MANAGER ED Gender Identity Female 05/01/2020 9:28 AM CDT Sexual Orientation Straight 11/04/2020 12 :56 PM CDT Last Filed Vital Signs Vital Sign Reading Time Taken Comments Blood Pressure 120/52 01/05/2023 10:50 AM MANAGER ED Pulse 68 01/05/2023 10:50 AM MANAGER ED Temperature 36.7 C (98 F) 01/05/2023 10:50 AM MANAGER ED Respiratory Rate 18 11/11/2022 1:23 PM CDT Oxygen Saturation 94% 01/05/2023 10:50 AM MANAGER ED Inhaled Oxygen Concentration - - Weight 83.9 kg (185 lb) 01/05/2023 10:50 AM MANAGER ED Height 170.2 cm (5' 7) 01/05/2023 10:50 AM MANAGER ED Body Mass Index 28.98 01/05/2023 10:50 AM MANAGER ED Plan of Treatment Not on file Insurance MEDICARE [facility] Address: [address] [address] [place] [address] [facility] OPEN ACCESS [facility] MEDICARE SUPPLEMENT INSURANCE MEDICARE [facility] MEDICARE SUPPLEMENT INSURANCE ALETHEA SALAS [id number] [place] [address] MEDICARE [facility] MEDICARE SUPPLEMENT INSURANCE ALETHEA SALAS [id number] Care Teams Manager Reading Relationship Specialty Start Date End Date Jayy Haider MD [address] [place] [address] PCP - General 08/05/16
--- OUTSIDE RECORDS SUMMARY | 2024-08-24 13:49 | XMS_ITS | Clinical Summary ---
Author Organization [facility] Address [address] [place] [address] Care Team Providers Care Bank Analyst Name Role Phone Jayy Haider MD Primary Care Provider Allergies Active Allergy Reactions Criticality Noted Date Comments Ampicillin Rash,Unknown Medium 04/13/2007 Mopqvhwvhh-Qcnfwbhvj-Epdjff on Unknown 06/27/2014 Benzoyl Peroxide (Bulk) Unknown [...] 01/20/2012 Surgical History Surgery Date Site/Laterality Comments AK TOTAL ABDOMINAL HYSTERECT W/WO RMVL TUBE OVARY Hysterectomy - (Added by TW Conv) [place] TONSILLECTOMY PRIMARY/SECONDARY <AGE 12 Tonsillectomy - (Added by TW Conv) KNEE ARTHROPLASTY Knee Arthroplasty - (Added by TW Conv) BLADDER SURGERY Bladder Surgery - (Added by TW Conv) AK CHOLECYSTECTOMY Cholecystectomy - (Added by TW Conv) ANTERIOR CRUCIATE LIGAMENT REPAIR Primary Repair Of Knee Ligament Cruciate Anterior - (Added by TW Conv) MANDIBLE SURGERY Jaw Surgery - (Added by TW Conv) AK NEUROPLASTY &/TRANSPOS ME NATACHA NRV CARPAL TUNNE [...] on file Legal Sex Female 3:40 AM ENROLLMENT SERVICES VICE PRESIDENT Gender Identity Female 05/01/2020 9:28 AM CDT Sexual Orientation Straight 11/04/2020 12 :56 PM CDT Obstetrics History Last Filed Vital Signs Vital Sign Reading Time Taken Comments Blood Pressure 120/52 01/05/2023 10:50 AM ENROLLMENT SERVICES VICE PRESIDENT Pulse 68 01/05/2023 10:50 AM ENROLLMENT SERVICES VICE PRESIDENT Temperature 36.7 C (98 F) 01/05/2023 10:50 AM ENROLLMENT SERVICES VICE PRESIDENT Respiratory Rate 18 11/11/2022 1:23 PM CDT Oxygen Saturation 94% 01/05/2023 10:50 AM ENROLLMENT SERVICES VICE PRESIDENT Inhaled Oxygen Concentration - - Weight 83.9 kg (185 lb) 01/05/2023 10:50 AM ENROLLMENT SERVICES VICE PRESIDENT Height 170.2 cm (5' 7) 01/05/2023 10:50 AM ENROLLMENT SERVICES VICE PRESIDENT Body Mass Index 28.98 01/05/2023 10:50 AM ENROLLMENT SERVICES VICE PRESIDENT Plan of Treatment Health Maintenance Due Date Last Done Comments Albumin Creatinine Ratio, Urine 1946 Depression Screening 1946 Fall Risk Assessment 1946 Hemoglobin A1C 1946 Hepatitis C Screening 1946 Osteoporosis Screening-Bone Density Scan 1946 eGFR 1946 Dilated Eye Exam 1946 Foot Exam 1946 DTaP/Tdap/Td Vaccine (1 - Tdap) 1957 Hepatitis B Screening 02/14/1964 Pneumococcal vaccine 65+ (1 of 2 - PCV) 1965 Zoster Vaccine (1 of 2) 02/14/1996 Well Visit 65+ 2011 Lipid Panel 11/02/2023 11/01/2022, 05/29/2019 Influenza Vaccine (Season Ended) 2024 12/06/2018, 12/12/2017, 01/10/2016, Additional history exists Insurance MEDICARE [facility] Address: [facility] [id number] [place] [address] [facility] OPEN ACCESS [facility] MEDICARE SUPPLEMENT INSURANCE MEDICARE [facility] MEDICARE SUPPLEMENT INSURANCE MEDICARE [facility] MEDICARE SUPPLEMENT INSURANCE Care Teams Bank Analyst Relationship Specialty Start Date End Date Jayy Haider MD [address] [place] [address] PCP - General 08/05/16
--- OUTSIDE RECORDS SUMMARY | 2024-08-24 13:49 | XMS_ITS | Encounter Summary ---
Author Organization [facility] Address [address] [place] [address] Care Team Providers Care Lap Cutter Name Role Phone Jayy Haider MD Primary Care Provider [phone] Mc Dawson MD Unavailable Unavailable Navjot Rosenberg MD Unavailable Encounter Details Date Type Department Care Team (Late st Contact Info) Description 04/23/2017 Abstract [facility] CONVERSION [address] [place] [address] , Generic Conversion, Social History Tobacco Use Types Packs/Day Years Used Date Smoking Tobacco: Never Smokeless Tobacco: Never Alcohol Use Standard Drinks/Week Comments No 0 (1 standard drink = 0.6 oz pur e alcohol) Comments Unknown Sex and Gender Information Value Date Recorded Sex Assigned at Female 02/21/2024 2:54 PM AIRFRAME TECHNICIAN Legal Sex Female 10:47 PM CDT Gender Identity Not on file Sexual Orientation Not on file Occupation Industry Job Start Date Job End Date retired Not on file Not on file Not on file documented as of this encounter Plan of Treatment Not on file documented as of this encounter Visit Diagnoses Not on filedocumented in this encounter Additional Health Concerns Infection Onset Date Last Indicated Resolved Time COVID-19 Rule Out 12/17/2020 12/17/2020 12/18/2020 12:38 PM AIRFRAME TECHNICIAN COVID-19 Rule Out 12/17/2020 12/17/2020 02/26/2021 12:39 PM AIRFRAME TECHNICIAN COVID-19 Rule Out 12/28/2021 12/28/2021 12/29/2021 9:12 AM AIRFRAME TECHNICIAN COVID-19 Rule Out 05/16/2022 05/16/2022 05/16/2022 10:30 AM CDT COVID-19 Rule Out 05/17/2022 05/15/2022 05/17/2022 6:51 PM CDT COVID-19 Rule Out 06/21/2023 06/21/2023 06/21/2023 4:29 PM CDT documented as of this encounter Care Teams Lap Cutter Relationship Specialty Start Date End Date Jayy Haider MD [address] [place] [id number] PCP - General PEDIATRICS 08/25/15 Mc Dawson MD [address] [place] [id number] CARDIOVASCULAR DISEASE 08/25/15 Navjot oRsenberg MD [address] [place] [id number] INTERNAL MEDICINE 09/09/15 documented as of this encounter
--- OUTSIDE RECORDS SUMMARY | 2024-08-24 13:49 | XMS_ITS | Encounter Summary ---
Author Organization [facility] Address [address] [place] [address] Care Team Providers Care Water Purifier Operator Name Role Phone Jayy Haider MD Primary Care Provider + [phone] Mc Dawson MD Unavailable Unavailable Navjot Rosenberg MD Unavailable Encounter Details Date Type Department Care Team (Late st Contact Info) Description 10/21/2015 Abstract [facility] [address] [place] [id number] Navjot Rosenberg MD [address] [facility], [address] [place] [address] Social History Tobacco Use Types Packs/Day Years Used Date Smoking Tobacco: Never Smokeless Tobacco: Never Alcohol Use Standard Drinks/Week Comments No 0 (1 standard drink = 0.6 oz pur e alcohol) Comments Unknown Sex and Gender Information Value Date Recorded Sex Assigned at Female 02/21/2024 2:54 PM CORPORATE ETHICS OFFICER Legal Sex Female 10:47 PM CDT Gender [...] Rule Out 12/17/2020 12/17/2020 12/18/2020 12:38 PM CORPORATE ETHICS OFFICER COVID-19 Rule Out 12/17/2020 12/17/2020 02/26/2021 12:39 PM CORPORATE ETHICS OFFICER COVID-19 Rule Out 12/28/2021 12/28/2021 12/29/2021 9:12 AM CORPORATE ETHICS OFFICER COVID-19 Rule Out 05/16/2022 05/16/2022 05/16/2022 10:30 AM CDT COVID-19 Rule Out 05/17/2022 05/15/2022 05/17/2022 6:51 PM CDT COVID-19 Rule Out 06/21/2023 06/21/2023 06/21/2023 4:29 PM CDT documented as of this encounter Care Teams Water Purifier Operator Relationship Specialty Start Date End Date Jayy Haider MD [address] [place] [address] PCP - General PEDIATRICS 08/25/15 Mc Dawson MD [address] [place] [address] CARDIOVASCULAR DISEASE 08/25/15 Navjot Rosenberg MD [address] [place] [address] INTERNAL MEDICINE 09/09/15 documented as of this encounter
--- OUTSIDE RECORDS SUMMARY | 2024-08-24 13:49 | XMS_ITS | Clinical Summary ---
Author Organization [facility] Address [address] [place] [address] Care Team Providers Care School Cook Name Role Phone Jayy Haider MD Primary Care Provider [phone] Navjot Rosenberg MD Unavailable Allergies Active Allergy Reactions Criticality Noted Date Comments Amitriptyline Unknown 09/18/2015 Ampicillin Unknown,Rash Low 09/18/2015 Clarithromycin Unknown 09/18/2015 Metalic Taste Bupropion Unknown 10/21/2015 rash Ciprofibrate Unknown 10/21/2015 Headache Ciprofloxacin Unknown 09/18/2015 Valproic Acid Unknown 09/18/2015 blisters Ergot Alkaloids Unknown 10/21/2015 Hx uncontrolled HTN Erythromycin Unknown 09/18/2015 Gabapentin Unknown 09/18/2015 Memory loss Hydrogen Peroxide Unknown,Swelling 09/18/2015 Sumatriptan Unknown 09/18/2015 Iodine Hives 09/18/2015 Pt reports never had a problem with dye for previous heart caths or CT scans. Does not recall reporting allergy. Pregabalin Unknown 09/18/2015 Memory loss Dihydroergotamine Unknown 09/18/2015 Nitrofurantoin Unknown 09/18/2015 Spastrin Unknown 09/18/2015 Sulfa Antibiotics Unknown,Hives 09/18/2015 Medications topiramate (TOPAMAX) 25 MG tablet Take 1 tablet (25 mg total) by mouth 2 (two) times daily. 12/31/2013 Active Levothyroxine Sodium 88 MCG CapIndications: Thyroid Disease Take 88 mcg by mouth every morning. Indications: Disease of the Thyroid Gland 03/27/2020 Active sertraline (ZOLOFT) 100 MG tablet Take 1 tablet (100 mg total) by mouth nightly at bedtime. Active montelukast (SINGULAIR) 10 MG tablet Take 1 tablet (10 mg total) by mouth nightly at bedtime. Active loratadine (CLARITIN) 10 MG tablet Take 1 tablet (10 mg total) by mouth daily as needed for Allergies. Active cetirizine (ZYRTEC) 10 MG tablet Take 1 tablet (10 mg total) by mouth daily as needed for Allergies. Active melatonin 5 MG tablet Take 1 tablet (5 mg total) by mouth nightly at bedtime. Active tiotropium (SPIRIVA HANDIHALER) [address] 1 capsule (18 mcg total) into inhaler and inhale as needed. 09/14/2022 Active indapamide (LOZOL) 1.25 MG tablet Take 1 tablet (1.25 mg total) by mouth daily. 06/17/2023 Active tiZANidine (ZANAFLEX) 4 MG tablet Take 1 tablet (4 mg total) by mouth nightly at bedtime. 04/12/2023 Active amitriptyline (ELAVIL) 25 MG tablet Take 1 tablet (25 mg total) by mouth nightly at bedtime. Active Vitamin D3 (CHOLECALCIFERO L) 50 mcg tablet Take 1 tablet (50 mcg total) by mouth 2 (two) times a day. Active OZEMPIC, 0.25 OR 0.5 MG/DOSE, 2 MG/3ML injection (PEN) Inject 0.5 mg into the skin every 7 days. 09/10/2023 Active amLODIPine (NORVASC) 5 MG tabletIndicatio ns:HTN Take 1 tablet (5 mg total) by mouth nightly at bedtime. Indications: HTN 90 tablet 1 09/15/2023 Active FARXIGA 10 MG tablet Take 1 tablet (10 mg total) by mouth daily. 12/17/2023 Active aspirin EC (ECOTRIN) 81 MG tablet Take 1 tablet (81 mg total) by mouth daily. Active hydrALAZINE (APRESOLINE) 25 MG tablet Take 1 tablet (25 mg total) by mouth 3 (three) times daily as needed (systolic BP more than 160 mmHg). 120 tablet 3 12/22/2023 Active carvedilol (COREG) 3.125 MG tablet Take 1 tablet (3.125 mg total) by mouth 2 (two) times daily. 01/04/2024 Active atorvastatin (LIPITOR) 40 MG tablet TAKE 1 TABLET (40 MG TOTAL) BY MOUTH DAILY. 90 tablet 1 02/15/2024 Active Active Problems Problem Noted Date Diagnosed Date Enteritis 06/20/2023 Abdominal pain 06/20/2023 Diverticulitis 05/15/2022 Pulmonary acid aspiration syndrome 01/30/2019 Bronchiectasis without complication ([facility]) 01/30/2019 Moderate persistent asthma without complication ([facility]) 01/30/2019 Precordial pain 10/04/2016 Bradycardia 10/04/2016 PVC (premature ventricular contraction) 10/05/19 17 Cardiomegaly 05/24/2016 Chronic venous insufficiency 03/05/2016 Varicose vein of leg 03/05/2016 Essential hypertension 09/23/2015 Hyperlipidemia, mixed 09/23/2015 Varicose veins Venous insufficiency Venous hypertension Hypothyroidism Pain and swelling of lower e xtremity, unspecified laterality Shortness of breath on exertion Encounters Date Type Department Care Team Description 08/13/2024 5:11 PM CDT - 08/13/2024 7:45 PM CDT Emergency [facility] [employer] [facility] [address] [address] Alyssa Deal MD Hyperglycemia Discharge Disposition: Home or Self Care (Routine Discharge) 08/13/2024 Travel from Last 3 Months Family History Relation Status Comments Brother 1 (Age 49) cardiomyopathy Brother 2 Alive Brother 3 Alive Father (Age 82) CHF and prosta te cancer Maternal Grandfather Maternal Grandmother Mother (Age 84) breast and thy roid cancer Paternal Grandfather Paternal Grandmother (Age 92) Social History Tobacco Use Types Packs/Day Years Used Date Smoking Tobacco: Never Smokeless Tobacco: Never Tobacco Cessation:Counseling Given: Not Answered Alcohol Use Standard Drinks/Week Comments No 0 (1 standard drink = 0.6 oz pur e alcohol) [facility] Utilities Answer Date Recorded In the past 12 months has th e electric, gas, oil, or water [employer] threatened to shut off services in your home? No 06/20/2023 Humiliation, Afraid, Rape, and Kick questionnair e Answer Date Recorded Within the last year, have y ou been afraid of your partner or ex-partner? No 06/20/2023 Within the last year, have y ou been humiliated or emotionally abused in other ways by your partner or ex-partner? No Within the last year, have y ou been kicked, hit, slapped, or otherwise physically hurt by your partner or ex-partner? No 06/20/2023 Within the last year, have y ou been raped or forced to have any kind of sexual activity by your partner or ex-partner? No 06/20/2023 Social Connection and Isolation Panel [NHANES] A nswer Date Recorded In a typical week, how many times do you talk on the phone with family, friends, or neighbors? Twice a week 05/15/2022 How often do you get together with friends or re latives? Twice a week 05/15/2022 How often do you attend christianity or evangelical serv ices? Never 05/15/2022 Do you belong to any clubs o r organizations such as christianity groups, unions, fraternal or athletic groups, or school groups? No 05/15/2022 How often do you attend meet ings of the clubs or organizations you belong to? Never 05/15/2022 Are you , , di vorced, , never , or living with a partner? 05/15/2022 AUDIT-C Answer Date Recorded Q1: How often do you have a drink containing alcohol? Never 05/15/2022 Q2: How many drinks containi ng alcohol do you have on a typical day when you are drinking? Patient does not drink Q3: How often do you have si x or more drinks on one occasion? Never 05/15/2022 Overall Financial Resource Strain (CARDIA) Answe r Date Recorded How hard is it for you to pa y for the very basics like food, housing, medical care, and heating? Not hard at all 06/20/2023 [facility] - Occupational Stress Questionnaire Answer Date Recorded Do you feel stress - tense, restless, nervous, or anxious, or unable to sleep at night because your mind is troubled all the time - these days? Not at all 05/15/2022 Exercise Vital Sign Answer Date Recorde d On average, how many days pe r week do you engage in moderate to strenuous exercise (like a brisk walk)? 0 days 05/15/2022 On average, how many minutes do you engage in exercise at this level? 0 min 05/15/2022 Hunger Vital Sign Answer Date Recorded Within the past 12 months, y ou worried that your food would run out before you got the money to buy more. Never true 06/20/19 24 Within the past 12 months, t he food you bought just didn't last and you didn't have money to get more. Never true 06/20/2023 PRAPARE - Transportation Answer Date Re corded In the past 12 months, has l ack of transportation kept you from medical appointments or from getting medications? No 06/07 In the past 12 months, has l ack of transportation kept you from meetings, work, or from getting things needed for daily living? No 06/20/2023 Housing Stability Vital Sign Answer Phong e Recorded In the last 12 months, was t here a time when you were not able to pay the mortgage or rent on time? No 05/15/2022 In the last 12 months, how many places have you lived? 1 05/15/2022 In the last 12 months, was t here a time when you did not have a steady place to sleep or slept in a fci (including now)? No 05/15/2022 Housing Stability Vital Sign Answer Phong e Recorded In the last 12 months, was t here a time when you were not able to pay the mortgage or rent on time? No 06/20/2023 In the past 12 months, how m any times have you moved where you were living? 0 06/20/2023 At any time in the past 12 m [facility], were you homeless or living in a fci (including now)? No 06/20/2023 Comments No Sex and Gender Information Value Date Recorded Sex Assigned at Female 02/21/2024 2:54 PM WEAPONS MECHANIC Legal Sex Female 10:47 PM CDT Gender Identity Not on file Sexual Orientation Not on file Occupation Industry Job Start Date Job End Date retired Not on file Not on file Not on file Last Filed Vital Signs Vital Sign Reading Time Taken Comments Blood Pressure 161/90 08/13/2024 7:23 PM CDT Pulse 64 08/13/2024 7:23 PM CDT Temperature 36.4 C (97.5 F) 08/13/2024 7:23 PM CDT Respiratory Rate 17 08/13/2024 7:23 PM CDT Oxygen Saturation 99% 08/13/2024 7:23 PM CDT Inhaled Oxygen Concentration - - Weight 82.5 kg (181 lb 14.1 oz) 08/13/2024 5:26 PM CDT Height 167.6 cm (5' 6) 08/13/2024 5:26 PM CDT Body Mass Index 29.36 08/13/2024 5:26 PM CDT Plan of Treatment Health Maintenance Due Date Last Done Comments Kidney Health Evaluation 1945 Diabetes: Retinopathy Eye Exam 02/14/1964 Hepatitis C 02/14/1964 Pneumococcal Vaccine: 50+ Years (1 of 2 - PCV) 1965 Annual Medicare Wellness Visit 2011 Zoster Vaccines (2 of 3) 01/22/2020 11/27/2019 RSV Immunization or 60+ Years (1 - 1-dose 75+ series) 2021 Hemoglobin A1C 07/27/2023 01/25/2023, 09/08, 10/04/2022, Additional history exists Lipid Panel 11/02/2023 11/01/2022, 09/08, 06/11/2020, Additional history exists COVID-19 Vaccine (3 - 2023- season) 2024 11/16/2023, 09/23/2020 Dexa Scan (General) 08/28/2024 Postpone d from 2011 (Going to Outside Clinic) DTaP, Tdap and Td Vaccines (2 - Td or Tdap) 06/27/2029 06/28/2019 Meningococcal B Vaccine Aged Out No l onger eligible based on patient's age to complete this topic Meningococcal Vaccine Aged Out No diego vandana eligible based on patient's age to complete this topic RSV Immunizations Under 20 Months Aged Out No longer eligible based on patient's age to complete this topic Medical Devices Implanted Type Area Marketing And Outreach Coordinator Device Identifier Shelf Expiration Date Model / Serial / Lot Hip Back Procedures Procedure Name Priority Date/Time Associated Diagnosis Comments POCT GLUCOSE - DOCKED DEVICE Routine 08/13/2024 7:39 PM CDT POCT GLUCOSE - DOCKED DEVICE Routine 08/13/2024 7:14 PM CDT URINALYSIS AUTO DIP STAT 08/13/2024 6 :08 PM CDT I-STAT VENOUS BLOOD GAS CG4 PLUS STAT 08/13/2024 5:45 PM CDT COMPREHENSIVE METABOLIC PANEL STAT 08/13/2024 5:45 PM CDT CBC W/DIFF AUTOMATED STAT 08/13/2024 5:45 PM CDT POCT GLUCOSE - DOCKED DEVICE Routine 08/13/2024 5:25 PM CDT HEMOGLOBIN, GLYCOSYLATED Routine 01/25/2023 2:40 PM WEAPONS MECHANIC Diabetes mellitus Chronic kidney disease (CKD) stage G3b/A1, moderately decreased glomerular filtration rate (GFR) between 30-44 mL/min/1.73 square meter and albuminuria creatinine ratio less than 30* Avitaminosis D LIPID PANEL Routine 11/01/2022 6:55 AM CDT Chest pain SOB (shortness of breath) from Last 3 Months or Most Recently Relevant to Health Maintenance Results * (ABNORMAL) POCT glucose (08/13/2024 7:39 PM CDT) Only the most recent of3 resultswithin the time period is included. GLUCOSE POC 214(H) 70 - 99 MG/DL 08/13/2024 7:41 PM CDT [facility] 08/13/2024 7:39 PM CDT Alyssa Deal MD POCT ORDERABLES - DEVICE Fi nal Result Performing Organization Address [facility] de Phone Number [facility] [address] [place] [address], [place] * (ABNORMAL) URINALYSIS AUTO DIP (08/13/2024 6:08 PM CDT) COLOR (U) COLORLESS(A ) YELLOW 08/13/2024 6:51 PM CDT [facility] TRANSPARENCY CLEAR CLEAR 08/13/2024 6:51 PM CDT [facility] SPECIFIC GRAVITY (U) 1.023 1.001 - 1.030 08/13/2024 6:51 PM CDT [facility] U PH 5.0 5.0 - 9.0 08/13/2024 6:51 PM CDT [facility] LEUKOCYTES (U) NEGATIVE NEGATIVE 08/13/2024 6:51 PM CDT [facility] NITRITES NEGATIVE NEGATIVE 08/13/2024 6:51 PM CDT [facility] PROTEIN RANDOM (U) NEGATIVE NEGATIVE 08/13/2024 6:51 PM CDT [facility] GLUCOSE (U) 4+(A) NORMAL 08/13/2024 6:51 PM CDT [facility] KETONES MG/DL (U) NEGATIVE NEGATIVE 08/13/2024 6:51 PM CDT [facility] UROBILINOGEN NORMAL NORMAL EU/DL 08/13/2024 6:51 PM CDT [facility] BILIRUBIN (U) NEGATIVE NEGATIVE 08/13/2024 6:51 PM CDT [facility] BLOOD (U) NEGATIVE NEGATIVE 08/13/2024 6:51 PM CDT [facility] URINE SPECIMEN OBTAINED BY CLEAN CATCH PROCEDURE / Unknown 08/13/2024 6:08 PM CDT Alyssa Deal MD URINE ORDERABLES Final Resu lt Performing Organization Address [facility]/ZIP Co de Phone Number [facility] [address] [place] [address], [place] * (ABNORMAL) I-STAT VENOUS BLOOD GAS CG4 PLUS (08/13/2024 5:45 PM CDT) [facility] POC PH VENOUS 7.36 7.31 - 7.41 08/13/2024 6:09 PM CDT [facility] POC PO2 VENOUS 37 MMHG 08/13/2024 6:09 PM CDT [facility] Comment:NO REFERENCE RANGE H BEEN ESTABLISHED POC PCO2 VENOUS 34.0(L) 41 - 51 MMHG 08/13/2024 6:09 PM CDT [facility] POC HCO3 VENOUS 19.5(L) 23 - 28 MMOL/L 08/13/2024 6:09 PM CDT [facility] POC TCO2 VENOUS 21(L) 24 - 29 MMOL/L 08/13/2024 6:09 PM CDT [facility] POC BASE EXCESS VENOUS 6(H) 0 - 3 MMOL/L 08/13/2024 6:09 PM CDT [facility] 08/13/2024 5:45 PM CDT us Alyssa Deal MD LABORATORY Final Resul t Performing Organization Address [facility] Co de Phone Number [facility] [address] [place] [address], [place] * (ABNORMAL) COMPREHENSIVE METABOLIC PANEL (08/13/2024 5:45 PM CDT) Pathologist [facility] GLUCOSE 326(H) 70 - 99 MG/DL 08/13/2024 6:15 PM CDT [facility] BUN 32(H) 7 - 18 MG/DL 08/13/2024 6:15 PM CDT [facility] CREATININE S/P/B 1.28(H) 0.50 - 1.20 MG/DL 08/13/2024 6:15 PM CDT [facility] SODIUM S/P/B 131(L) 136 - 145 MMOL/L 08/13/2024 6:15 PM CDT [facility] POTASSIUM S/P/B 4.1 3.5 - 5.1 MMOL/L 08/13/2024 6:15 PM CDT [facility] CHLORIDE S/P/B 95(L) 100 - 108 MMOL/L 08/13/2024 6:15 PM CDT [facility] CO2 22.7 21.0 - 32.0 MMOL/L 08/13/2024 6:15 PM CDT [facility] CALCIUM S/P/B 9.0 8.5 - 10.1 MG/DL 08/13/2024 6:15 PM CDT [facility] BILIRUBIN TOTAL S/P/B 0.5 0.2 - 1.2 MG/DL 08/13/2024 6:15 PM CDT [facility] Comment: THIS ASSAY IS NOT RECOMMENDED FOR PATIENTS UNDERGOING TREATMENT WITH ELTROMBOPAG DUE TO THE POTENTIAL FOR FALSELY ELEVATED RESULTS. TOTAL PROTEIN S/P/B 7.6 6.4 - 8.2 G/DL 08/13/2024 6:15 PM CDT [facility] ALBUMIN S/P/B 4.0 3.4 - 5.0 G/DL 08/13/2024 6:15 PM CDT [facility] AST 15 15 - 37 U/L 08/13/2024 6:15 PM CDT [facility] ALT 36 14 - 55 U/L 08/13/2024 6:15 PM CDT [facility] ALKALINE PHOSPHATASE S/P/B 121 50 - 136 U/L 08/13/2024 6:15 PM CDT [facility] ANION GAP 13.3 5.0 - 15.0 MMOL/L 08/13/2024 6:15 PM CDT [facility] BUN CREATININE RATIO 25.0 6 - 26 08/13/2024 6:15 PM CDT [facility] A/G RATIO 1.1 1.0 - 2.5 RATIO 08/13/2024 6:15 PM CDT [facility] GFR ESTIMATE 43(L) >90 ML/MIN/1.7 3 M2 08/13/2024 6:15 PM CDT [facility] Comment: NOTE: eGFR is not calculated for patients <18 years of age. This is an estimated GFR calculation using the new CKD EPI creatinine equation without race and so does not require a correction factor for race. This estimated GFR should not be used for calculating drug doses. 08/13/2024 5:45 PM CDT us Alyssa Deal MD LABORATORY Final Resul t [facility] [address] [place] [address] [place] [address], * (ABNORMAL) CBC W/DIFF AUTOMATED (08/13/2024 5:45 PM CDT) WBC 11.10(H) 4.50 - 11.00 x10'3/uL 08/13/2024 5:56 PM CDT [facility] RBC 5.94(H) 4.00 - 5.20 x10'6/uL 08/13/2024 5:56 PM CDT [facility] HGB 15.6 12.0 - 16.0 G/DL 08/13/2024 5:56 PM CDT [facility] HCT 46.1 38.0 - 48.0 % 08/13/2024 5:56 PM CDT [facility] MCV 77.6(L) 80.0 - 100.0 FL 08/13/2024 5:56 PM CDT [facility] MCH 26.3 26.0 - 34.0 PG 08/13/2024 5:56 PM CDT [facility] MCHC 33.8 31.0 - 37.0 G/DL 08/13/2024 5:56 PM CDT [facility] RDW 15.1(H) 11.6 - 14.8 % 08/13/2024 5:56 PM CDT [facility] PLT 238 130 - 400 x10'3/uL 08/13/2024 5:56 PM CDT [facility] MPV 9.8 7.0 - 12.0 FL 08/13/2024 5:56 PM CDT [facility] CBC COMMENT AUTOMATED RBC MORPHOLOGY AND PLATELET EVALUATION NORMAL 08/13/2024 5:56 PM CDT [facility] NEUTROPHILS % 81.2(H) 40.0 - 74.0 % 08/13/2024 5:56 PM CDT [facility] LYMPHOCYTES % 11.4(L) 14.0 - 46.0 % 08/13/2024 5:56 PM CDT [facility] MONOCYTES % 6.6 4.0 - 13.0 % 08/13/2024 5:56 PM CDT [facility] EOSINOPHILS 0.0 0.0 - 7.0 % 08/13/2024 5:56 PM CDT [facility] BASOPHILS 0.1 0.0 - 3.0 % 08/13/2024 5:56 PM CDT [facility] IMMATURE GRANS % 0.7(H) 0.0 - 0.43 % 08/13/2024 5:56 PM CDT [facility] NRBC % 0.0 % 08/13/2024 5:56 PM CDT [facility] ABS. NEUTROPHILS TOTAL 9.02(H) 1.69 - 7.81 x10'3/uL 08/13/2024 5:56 PM CDT [facility] ABS. LYMPHOCYTES 1.26 0.21 - 5.42 x10'3/uL 08/13/2024 5:56 PM CDT [facility] ABS. MONOCYTES 0.73 0.04 - 1.37 x10'3/uL 08/13/2024 5:56 PM CDT [facility] ABS. EOSINOPHILS 0.00 0.00 - 0.68 x10'3/uL 08/13/2024 5:56 PM CDT [facility] ABS. BASOPHILS 0.01 0.00 - 0.08 x10'3/uL 08/13/2024 5:56 PM CDT [facility] ABS. IMMATURE GRANULOCYTES 0.08(H) 0.00 - 0.06 x10'3/uL 08/13/2024 5:56 PM CDT [facility] ABS. NUCLEATED RBC'S 0.00 0.00 - 0.01 x10'3/uL 08/13/2024 5:56 PM CDT [facility] 08/13/2024 5:45 PM CDT Alyssa Deal MD LABORATORY Final Resul t Performing Organization Address City/[facility]/ZIP Co de Phone Number [facility] [address] [place] [address] [place] [address], [place] * (ABNORMAL) HEMOGLOBIN, GLYCOSYLATED (01/25/2023 2:40 PM WEAPONS MECHANIC) HGB A1C 8.3(H) <5.7 % 01/26/2023 12:52 AM WEAPONS MECHANIC [facility] Comment: ADA GUIDELINES 2010 5.7 TO 6.4% INCREASED RISK OF DIABETES > OR = 6.5% CONSISTENT WITH DIABETES ESTIMATED AVG GLUCOSE 192 mg/dL 01/26/2023 12:52 AM WEAPONS MECHANIC [facility] 01/25/2023 2:40 PM WEAPONS MECHANIC us Patrice Phillips MD LABORATORY Final Result [facility] [address] [place] [address], [place] [phone] * (ABNORMAL) LIPID PANEL (11/01/2022 6:55 AM CDT) CHOLESTEROL 129 <200 MG/DL 11/01/2022 7:27 AM CDT [facility] TRIGLYCERIDES 189(H) <150 MG/DL 11/01/2022 7:27 AM CDT [facility] HDL 36(L) >40.0 MG/DL 11/01/2022 7:27 AM CDT [facility] LDL (CALCULATED) 55 <100 MG/DL 11/01/2022 7:27 AM CDT [facility] NON HDL CHOLESTEROL 93 <130 MG/DL 11/01/2022 7:27 AM CDT [facility] CHOL/HDL RATIO 3.6 0.0 - 4.5 11/01/2022 7:27 AM CDT [facility] VLDL CALCULATION 38 5 - 55 MG/DL 11/01/2022 7:27 AM T [facility] LIPID INTERPRETATION 11/01/2022 7:27 AM T [facility] Comment: NIH CONCENSUS REPORT RECOMMENDATIONS: ADULT CHILD LOW RISK: CHOLESTEROL <200 <170 TRIGLYCERIDE <150 --- HDL >=60 --- LDL <100 <110 BORDERLINE: CHOLESTEROL 200-239 170-199 TRIGLYCERIDE 150-199 --- HDL 40-59 --- LDL 100-159 110-129 HIGH RISK: CHOLESTEROL >=240 >=200 TRIGLYCERIDE >=200 --- HDL <40 --- LDL >=160 >=130 11/01/2022 6:55 AM CDT us Myron Vogel MD LABORATORY Final Result [facility] [address] [place] [address], [place] [phone] from Last 3 Months or Most Recently Relevant to Health Maintenance Insurance MEDICARE [facility] MEDICARE Advance Directives Documents on File Type Date Recorded Patient Supervising Film Or Videotape Editor Expl anation Advance Directives and Living Will 12/17/2020 12:00 AM ADVANCED DIRECTIVES Advance Directives and Living Will 01/08/2016 12:00 AM ADVANCED DIRECTIVES Advance Directives and Living Will 12/26/2015 12:00 AM ADVANCED DIRECTIVES Advance Directives and Living Will 04/14/2015 12:00 AM ADVANCED DIRECTIVES * Full Code (Latest Code Status on File) Date Activated Date Inactivated Comments 06/20/2023 8:36 PM 06/22/2023 3:42 PM * Full Code Date Activated Date Inactivated Comments 11/01/2022 9:35 AM 11/01/2022 3:31 PM * Full Code Date Activated Date Inactivated Comments 05/15/2022 2:01 PM 05/19/2022 1:27 PM Care Teams School Cook Relationship Specialty Start Date End Date Jayy Haider MD [address] [place] [address] PCP - General PEDIATRICS 08/25/15 Navjot Rosenberg MD [address] [place] [address] INTERNAL MEDICINE 09/09/15
--- OUTSIDE RECORDS SUMMARY | 2024-08-24 13:50 | XMS_ITS | Encounter Summary ---
Author Organization [facility] Address [address] [place] [address] Care Team Providers Care Generating Station Mechanic Name Role Phone Jayy Haider MD Primary Care Provider [phone] Navjot Rosenberg MD Unavailable Encounter Details Date Type Department Care Team (Late st Contact Info) Description 04/04/2020 Abstract [facility] [address] Mandy Barney MA Social History Tobacco Use Types Packs/Day Years Used Date Smoking Tobacco: Never Smokeless Tobacco: Never Alcohol Use Standard Drinks/Week Comments No 0 (1 standard drink = 0.6 oz pur e alcohol) Comments Unknown Sex and Gender Information Value Date Recorded Sex Assigned at Female 02/21/2024 2:54 PM WAREHOUSEMAN Legal Sex Female 10:47 PM CDT Gender Identity Not on file Sexual Orientation Not on file Occupation Industry Job Start Date Job End Date retired Not on file Not on file Not on file COVID-19 Exposure Response Date Recorded In the last month, have you been in contact with someone who was confirmed or suspected to have Coronavirus / COVID-19? Unable to assess 03/27/2020 2:29 PM WAREHOUSEMAN documented as of this encounter Plan of Treatment Not on file documented as of this encounter Procedures Procedure Name Priority Date/Time Associated Diagnosis Comments HEMOGLOBIN, GLYCOSYLATED Routine 10/04/2022 HEMOGLOBIN, GLYCOSYLATED Routine 10/04/2022 COMPREHENSIVE METABOLIC PANEL Routine 10/04/2022 LIPID PANEL Routine 10/04/2022 CBC, MANUAL DIFF Routine 10/04/2022 THYROXINE, FREE (FT4) Routine 10/04/2022 THYROID STIM HORMONE TSH Routine 10/04/2022 MAGNESIUM Routine 10/04/2022 LIPID PANEL Routine 06/11/2020 CBC (OUTSIDE LAB) Routine 05/29/2020 COMPREHENSIVE METABOLIC PANEL Routine 05/29/2020 BASIC METABOLIC PANEL Routine 03/07/2020 THYROID STIM HORMONE TSH Routine 02/27/2020 MAGNESIUM Routine 02/27/2020 CBC (OUTSIDE LAB) Routine 05/29/2019 COMPREHENSIVE METABOLIC PANEL Routine 05/29/2019 LIPID PANEL Routine 05/29/2019 HEMOGLOBIN, GLYCOSYLATED Routine 05/29/2019 THYROXINE, FREE (FT4) Routine 05/29/2019 THYROID STIM HORMONE TSH Routine 05/29/2019 MAGNESIUM Routine 05/29/2019 documented in this encounter Results * (ABNORMAL) COMPREHENSIVE METABOLIC PANEL (10/04/2022) SODIUM S/P/B 141 GLUCOSE 256 mg/dL AST 10 BUN 24 CREATININE S/P/B 1.03(A) 0.5 - 1.0 CALCIUM S/P/B 9.4 POTASSIUM S/P/B 4.9 CHLORIDE S/P/B 107 ALT 19 GFR ESTIMATE 56 Narrative Resulting Agency Comment Default History Genericprovider LABORATORY Final Result * LIPID PANEL (10/04/2022) Pathologist [facility] CHOLESTEROL 183 TRIGLYCERIDES 290 HDL 40 LDL (CALCULATED) 94 Narrative Resulting Agency Comment [facility] History Genericprovider LABORATORY Final Result * CBC, MANUAL DIFF (10/04/2022) Pathologist [facility] WBC 8.6 HGB 12.7 HCT 39.8 PLT 222 Narrative Resulting Agency Comment [facility] History Genericprovider LABORATORY Final Result * THYROXINE, FREE (FT4) (10/04/2022) Pathologist [facility] FREE T4 1.40 Narrative Resulting Agency Comment [facility] History Genericprovider LABORATORY Final Result * HEMOGLOBIN, GLYCOSYLATED (10/04/2022) Pathologist [facility] HGB A1C 10.7 % Narrative Resulting Agency Comment [facility] History Genericprovider LABORATORY Final Result * THYROID STIM HORMONE, TSH (10/04/2022) Pathologist [facility] TSH 3.050 Narrative Resulting Agency Comment Default History Genericprovider LABORATORY Final Result * MAGNESIUM (10/04/2022) MAGNESIUM 2.0 Narrative Resulting Agency Comment Default History Genericprovider LABORATORY Final Result * HEMOGLOBIN, GLYCOSYLATED (10/04/2022) Pathologist [facility] HGB A1C 10.7 % Narrative Resulting Agency Comment [facility] History Genericprovider LABORATORY Final Result * LIPID PANEL (06/11/2020) Pathologist [facility] CHOLESTEROL 155 HDL 39 NON HDL CHOLESTEROL 116 06/11/2020 [facility] LABORATORY Final Result * (ABNORMAL) COMPREHENSIVE METABOLIC PANEL (05/29/2020) SODIUM S/P/B 138 POTASSIUM S/P/B 3.6 CO2 24 CHLORIDE S/P/B 101 GLUCOSE 256 mg/dL CALCIUM S/P/B 9.8 BUN 25 CREATININE S/P/B 1.4(A) 0.5 - 1.0 EGFR AFR. AMER. 47 <=90 EGFR NON-AFR. AMER. 39 <=90 ALKALINE PHOSPHATASE S/P/B 133 ALT 35 AST 20 BILIRUBIN TOTAL S/P/B 0.2 ALBUMIN S/P/B 4.2 3.5 - 5.0 TOTAL PROTEIN S/P/B 8.6 05/29/2020 [facility] LABORATORY Final Result * CBC (OUTSIDE LAB) (05/29/2020) Pathologist [facility] WBC 10.2 HGB 13.7 HCT 41.8 PLT 246 05/29/2020 [facility] Abstract LAB-OUTSIDE/ABSTRACTED Final Result * (ABNORMAL) BASIC METABOLIC PANEL (03/07/2020) Pathologist [facility] SODIUM S/P/B 142 POTASSIUM S/P/B 4.5 CO2 20 CHLORIDE S/P/B 105 GLUCOSE 161 mg/dL CALCIUM S/P/B 9.7 BUN 27 CREATININE S/P/B 1.23(A) 0.5 - 1.0 EGFR AFR. AMER. 50 <=90 EGFR NON-AFR. AMER. 43 <=90 03/07/2020 [facility] LABORATORY Final Result * MAGNESIUM (02/27/2020) Pathologist [facility] MAGNESIUM 2.0 02/27/2020 [facility] Doc [facility] LABORATORY Final Result * THYROID STIM HORMONE, TSH (02/27/2020) TSH 1.800 02/27/2020 us Doc [facility] LABORATORY Final Result * MAGNESIUM (05/29/2019) Pathologist [facility] MAGNESIUM 2.0 05/29/2019 us Doc [facility] LABORATORY Final Result * THYROXINE, FREE (FT4) (05/29/2019) [facility] FREE T4 1.14 05/29/2019 us Doc [facility] LABORATORY Final Result * THYROID STIM HORMONE, TSH (05/29/2019) Pathologist [facility] TSH 0.268 05/29/2019 [facility] LABORATORY Edited Resul t - Final * HEMOGLOBIN, GLYCOSYLATED (05/29/2019) Pathologist [facility] HGB A1C 8.2 % 05/29/2019 [facility] LABORAT[facility] Final Result * LIPID PANEL (05/29/2019) [facility] CHOLESTEROL 146 HDL 37 TRIGLYCERIDES 226 LDL (CALCULATED) 64 05/29/2019 [facility]ORAT[facility] Final Result * COMPREHENSIVE METABOLIC PANEL (05/29/2019) [facility] SODIUM S/P/B 141 POTASSIUM S/P/B 4.8 CO2 23 CHLORIDE S/P/B 102 GLUCOSE 177 mg/dL CALCIUM S/P/B 9.8 BUN 20 CREATININE S/P/B 1.0 0.5 - 1.0 EGFR AFR. AMER. 65 <=90 EGFR NON-AFR. AMER. 56 <=90 ALKALINE PHOSPHATASE S/P/B 78 ALT 22 AST 17 BILIRUBIN TOTAL S/P/B 0.3 ALBUMIN S/P/B 4.5 3.5 - 5.0 TOTAL PROTEIN S/P/B 7.4 GLOBULIN 2.9 05/29/2019 [facility] LABORATORY Final Result * CBC (OUTSIDE LAB) (05/29/2019) WBC 6.6 HGB 13.3 HCT 41.5 PLT 202 05/29/2019 [facility] Doc [facility] Abstract LAB-OUTSIDE/ABSTRACTED Final Result documented in this encounter Visit Diagnoses Not on filedocumented in this encounter Additional Health Concerns Infection Onset Date Last Indicated Resolved Time COVID-19 Rule Out 12/17/2020 12/17/2020 12/18/2020 12:38 PM WAREHOUSEMAN COVID-19 Rule Out 12/17/2020 12/17/2020 02/26/2021 12:39 PM WAREHOUSEMAN COVID-19 Rule Out 12/28/2021 12/28/2021 12/29/2021 9:12 AM WAREHOUSEMAN COVID-19 Rule Out 05/16/2022 05/16/2022 05/16/2022 10:30 AM CDT COVID-19 Rule Out 05/17/2022 05/15/2022 05/17/2022 6:51 PM CDT COVID-19 Rule Out 06/21/2023 06/21/2023 06/21/2023 4:29 PM CDT documented as of this encounter Care Teams Generating Station Mechanic Relationship Specialty Start Date End Date Jayy Haider MD [address] [place] [id number] PCP - General PEDIATRICS 08/25/15 Navjot Rosenberg MD [address] [place] [id number] INTERNAL MEDICINE 09/09/15 documented as of this encounter
--- OUTSIDE RECORDS SUMMARY | 2024-08-24 13:51 | XMS_ITS | Patient Health Record ---
Author Organization [facility] dicine Address [address] [place] [address] Care Team Providers Care Export Manager Name Role Phone Dr. Jayy Haider Primary Care Provider [phone] Dr. Bisi Dias Unavailable [phone] Jad Morgan Unavailable [phone] Bisi Lamas Unavailable [phone] Migration, Provider Unavailable Unavailable Allergies Allergen (clinical drug ingredient) Drug/Non Drug Allergy documented on EMR Reaction Allergy Type Onset Date Status Bellamine (uncoded) Unknown Reviewed with pt., but unaware of medication or reaction. Allergy 11/23/2023 Active Biaxin *Unknown Reviewed with pt., but unaware of medication or reaction. Drug Allergy 11/23/2023 Active ciprofloxacin Cipro Unknown Drug Allergy 11/23/2023 Ac tive erythromycin Erythromycin Unknown Reviewed with pt., but unaware of medication or reaction. Drug Allergy 11/23/2023 Active Hydrogen Peroxide Blisters Drug Allergy Active sumatriptan Imitrex Elevates BP Drug Allergy 11/23/2023 Ac tive pregabalin Lyrica Memory loss Drug Allergy 11/23/2023 Act huy nitrofurantoin Macrodantin *Unknown Reviewed with pt., but unaware of medication or reaction. Drug Allergy 11/23/2023 Active dihydroergotamine Migranal Elevates BP Drug Allergy 024 Active gabapentin Neurontin Memory loss Drug Allergy 11/23/2023 Act huy Penicillin Delete Reason: Entered in Error. Drug Allergy 05/24/2022 Inactive Substance with sulfonamide structure and antibacterial mechanism of action (substance) Sulfa Antibiotics hives Drug Allergy 11/23/2023 Active valproic acid Valproic Acid *Unknown Reviewed with pt., but unaware of medication or reaction. Drug Allergy 11/23/2023 Active Results Component Value Reference Range Flag Notes Comprehensive Metabolic Pane l Reviewed date:09/23/2023 12:00:00 AM Interpretation: Performing Lab: Notes/Report: Albumin Lvl 4.4 g/dL Albumin/Globulin Ratio 1.3 Alk Phos 81 unit/L ALT 23 unit/L ANION GAP 10.1 mmol/L AST 22 unit/L Bilirubin Total 0.4 mg/dL BUN 32 mg/dL Calcium Lvl 9.8 mg/dL Chloride Lvl 103 mmol/L CO2 25 mmol/L Creatinine Lvl 1.50 mg/dL eGFR CKD-EPI 36 mL/min/1.73 m2 Glucose Lvl 131 mg/dL Potassium Lvl 3.6 mmol/L Protein Total 7.7 g/dL Sodium Lvl 138 mmol/L Basic Metabolic Panel Reviewed date:10/25/2023 12:00:00 AM Interpretation: Performing Lab: Notes/Report: ANION GAP 8.9 mmol/L BUN 19 mg/dL Calcium Lvl 9.0 mg/dL Chloride Lvl 110 mmol/L CO2 20 mmol/L Creatinine Lvl 1.24 mg/dL eGFR CKD-EPI 45 mL/min/1.73 m2 Glucose Lvl 113 mg/dL Potassium Lvl 4.2 mmol/L Sodium Lvl 139 mmol/L Magnesium Reviewed date:10/25/2023 12:00:00 AM Interpretation: Performing Lab: Notes/Report: Magnesium Lvl 2.1 mg/dL Hepatitis C Ab w/Rflx to HCV Quant Reviewed date:11/25/2023 12:00:00 AM Interpretation: Performing Lab: Notes/Report: Hepatitis C Ab Non-Reactive Patient Health Questionnaire (PHQ9) Reviewed date:11/23/2023 12:00:00 AM Interpretation: Performing Lab: Notes/Report: Feeling bad about yourself or that you are a failure or have let yourself or your family down 0 Feeling down, depressed, or hopeless 0 Feeling tired or having little energy 2 If you checked off any problems, how difficult Not difficult at all have these problems made it for you to do your work, take care of things at home, or get along with other people? 0 Little interest or pleasure in doing things 0 Moving or speaking so slowly that other people could have noticed or the opposite being so figety or restless that you have been moving around a lot more than usual 0 Poor appetite or overeating 1 Thoughts that you would be better off , or of hurting yourself 0 Trouble concentrating on things, such as reading the newspaper or watching television 0 Trouble falling or staying asleep, or sleeping too much 2 Vitamin B12 Reviewed date:11/25/2023 12:00:00 AM Interpretation: Performing Lab: Notes/Report: Vitamin B12 Lvl 1046 pg/mL influenza A & B card Reviewed date:03/20/2024 09:17:53 AM Interpretation:Influenza A positive Performing Lab: Notes/Report: Influenza A positive Covid Rapid Antigen BD Verit or Reviewed date:03/20/2024 09:18:08 AM Interpretation:Negative Performing Lab: Notes/Report: Negative Chest X-ray PA and lateral Reviewed date:03/28/2024 05:16:51 PM Interpretation:Normal Performing Lab: Notes/Report: Normal Vitamin D 25 Hydroxy Reviewed date:07/31/2024 09:16:59 PM Interpretation: Performing Lab: Notes/Report: Test Performed by: [place] [address] Digital Sales Planner: Kofi Soto DO Vitamin D 25 OH 76 30-100 ng/mL Vitamin D25 Interpretation: Deficient: <= 20 ng/mL Insufficient: 21-29 ng/mL Sufficient: 30-100 ng/mL Upper Safety Limit: >100 ng/mL Comprehensive Metabolic Pane l Reviewed date:07/31/2024 09:16:59 PM Interpretation: Performing Lab: Notes/Report: Test Performed by: [place] [address] Digital Sales Planner: Kofi Soto DO Glucose Lvl 245 74-109 mg/dL H ADA risk stratification for diabetes <100 mg/dL = Normal 100-125 mg/dL = Increased risk for future diabetes >=126 mg/dL = Diabetes, if on more than one testing occasion BUN 22 7-25 mg/dL Creatinine Lvl 1.14 0.60-1.20 mg/dL eGFR CKD-EPI 49 >=90 mL/min/1.73 m2 L The CKD-EPI equation is validated in individuals 18 years of age and older. It is less accurate in patients with extremes of muscle mass, restriction of dietary protein, ingestion of creatine, extra-renal metabolism of creatinine, or treatment with medications that affect renal tubular creatinine secretion. GFR Categories in Chronic Kidney Disease (CKD) GFR GFR (mL/min/1.73 Category: square meters): Interpretation: G1 90 or greater Normal or high* G2 60-89 Mild decrease* G3a 45-59 Mild to moderate decrease G3b 30-44 Moderate to severe decrease G4 15-29 Severe decrease G5 14 or less Kidney failure *In the absence of evidence of kidney damage, neither GFR category G1 nor G2 fulfill the criteria for CKD (Kidney Int Suppl 2013;3:1-150) Calcium Lvl 10.3 8.6-10.3 mg/dL Sodium Lvl 137 136-145 mmol/L Potassium Lvl 4.4 3.5-5.1 mmol/L Chloride Lvl 103 98-107 mmol/L CO2 23 21-31 mmol/L Anion Gap 11.3 <=16.0 mmol/L Alk Phos 103 34-104 unit/L Bilirubin Total 0.5 0.3-1.0 mg/dL Albumin Lvl 4.7 3.5-5.2 g/dL Protein Total 7.4 6.4-8.9 g/dL Albumin/Globulin Ratio 1.8 1.1-2.5 ALT 50 7-52 unit/L AST 30 13-39 unit/L Magnesium Reviewed date:07/31/2024 09:16:59 PM Interpretation: Performing Lab: Notes/Report: Test Performed by: [address] [address] Digital Sales Planner: Kofi Soto DO Magnesium Lvl 2.3 1.6-2.4 mg/dL Vitamin B12 Folate Reviewed date:07/31/2024 09:16:59 PM Interpretation: Performing Lab: Notes/Report: Test Performed by: [address] [address] Digital Sales Planner: Kofi Soto DO Vitamin B12 Lvl 1003 180-914 pg/mL H Vitamin B12 Interpretation: Normal Range: 180-914 pg/mL Indeterminate: 140-180 pg/mL Deficient: <140 pg/mL Folate Lvl 20.6 5.9-24.8 ng/mL MRI : Lumbar without contras t Reviewed date:03/28/2024 02:00:50 PM Interpretation: Performing Lab: Notes/Report: MRI : Lumbar without contras t Reviewed date:06/26/2024 05:03:54 PM Interpretation: Performing Lab: Notes/Report: Charge Venipuncture Reviewed date:08/20/2024 04:28:07 PM Interpretation: Performing Lab: Notes/Report: Report Forwarded By: [address] [place] [address] Hemoglobin A1c {Glycosylated } Reviewed date:08/20/2024 04:30:52 PM Interpretation: Performing Lab: Notes/Report: Test Performed by: [place] [address] Digital Sales Planner: Kofi Soto DO Report Forwarded By: [address] [place] [address] Hemoglobin A1c 7.2 <=6.4 % H Hemoglobin A1C < 5.7% = Normal 5.7-6.4% = Increased risk for future diabetes >=6.5% = Diabetes eAvg Glucose 160 <=117 mg/dL H eAG Reference Range <117 mg/dL = Normal 117-137 mg/dL = Increased Risk For Future Diabetes >137 mg/dL = Diabetes Vitamin D 25 Hydroxy Reviewed date:08/20/2024 04:30:22 PM Interpretation: Performing Lab: Notes/Report: Test Performed by: [place] [id number] Digital Sales Planner: Kofi Soto DO Report Forwarded By: [address] [place] [address] Vitamin D 25 OH 35 30-100 ng/mL Vitamin D25 Interpretation: Deficient: <= 20 ng/mL Insufficient: 21-29 ng/mL Sufficient: 30-100 ng/mL Upper Safety Limit: >100 ng/mL T4 Free Reviewed date:08/20/2024 04:30:38 PM Interpretation: Performing Lab: Notes/Report: Test Performed by: [address] [address] Digital Sales Planner: Kofi Soto DO Report Forwarded By: [address] [place] [address] T4 Free 0.72 0.61-1.12 ng/dL CBC w Auto Diff Reviewed date:08/20/2024 04:29:01 PM Interpretation: Performing Lab: Notes/Report: Test Performed by: [address] [address] Digital Sales Planner: Kofi Soto DO Report Forwarded By: [address] [address] WBC 7.3 4.0-11.7 K/mcL RBC 5.53 3.80-5.41 x10*6/mcL H Hgb 14.6 11.3-15.2 g/dL Hct 43.9 33.2-45.3 % MCV 79.5 79.5-98.1 fL MCH 26.5 27.0-34.2 pg L MCHC 33.3 31.8-35.3 g/dL RDW 17.0 12.0-16.4 % H Platelets 207 149-393 K/mcL MPV 8.6 7.0-11.0 fL Neutro Auto 61.5 45.3-79.0 % Lymph Auto 23.7 11.8-45.9 % [place] Auto 6.2 4.4-12.0 % Eosinophil Auto 7.5 0.0-6.3 % H Basophil Auto 1.1 0.2-1.6 % Neutro Absolute 4.5 2.4-8.4 x10*3/mcL Lymph Absolute 1.7 0.8-3.7 x10*3/mcL [place] Absolute 0.5 0.3-1.1 x10*3/mcL Eos Absolute 0.5 0.0-0.5 x10*3/mcL Baso Absolute 0.1 0.0-0.1 x10*3/mcL Comprehensive Metabolic Pane l Reviewed date:08/20/2024 04:29:18 PM Interpretation: Performing Lab: Notes/Report: Test Performed by: [address] [address] Digital Sales Planner: Kofi Soto DO Report Forwarded By: [address] [address] Glucose Lvl 140 74-109 mg/dL H ADA risk stratification for diabetes <100 mg/dL = Normal 100-125 mg/dL = Increased risk for future diabetes >=126 mg/dL = Diabetes, if on more than one testing occasion BUN 22 7-25 mg/dL Creatinine Lvl 1.17 0.60-1.20 mg/dL eGFR CKD-EPI 48 >=90 mL/min/1.73 m2 L The CKD-EPI equation is validated in individuals 18 years of age and older. It is less accurate in patients with extremes of muscle mass, restriction of dietary protein, ingestion of creatine, extra-renal metabolism of creatinine, or treatment with medications that affect renal tubular creatinine secretion. GFR Categories in Chronic Kidney Disease (CKD) GFR GFR (mL/min/1.73 Category: square meters): Interpretation: G1 90 or greater Normal or high* G2 60-89 Mild decrease* G3a 45-59 Mild to moderate decrease G3b 30-44 Moderate to severe decrease G4 15-29 Severe decrease G5 14 or less Kidney failure *In the absence of evidence of kidney damage, neither GFR category G1 nor G2 fulfill the criteria for CKD (Kidney Int Suppl 2013;3:1-150) Calcium Lvl 9.7 8.6-10.3 mg/dL Sodium Lvl 139 136-145 mmol/L Potassium Lvl 3.9 3.5-5.1 mmol/L Chloride Lvl 108 98-107 mmol/L H CO2 23 21-31 mmol/L Anion Gap 7.7 <=16.0 mmol/L Alk Phos 94 34-104 unit/L Bilirubin Total 0.4 0.3-1.0 mg/dL Albumin Lvl 4.6 3.5-5.2 g/dL Protein Total 7.4 6.4-8.9 g/dL Albumin/Globulin Ratio 1.6 1.1-2.5 ALT 23 7-52 unit/L AST 20 13-39 unit/L Lipid Panel {Chol, Trig, HDL , LDL} Reviewed date:08/20/2024 04:29:36 PM Interpretation: Performing Lab: Notes/Report: Test Performed by: Daly Mcneil [address] [address] Digital Sales Planner: Kofi Soto DO Report Forwarded By: [id number] [address] Cholesterol Total 124 <=199 mg/dL Triglycerides 278 0-149 mg/dL H Triglyceride Reference Ranges: <150 mg/dL Normal 150 - 199 mg/dL Borderline High 200 - 499 mg/dL High >=500 mg/dL Very High LDL 31 <=100 mg/dL LDL Optimal: <100 Near or above optimal: 100-129 Borderline high: 130-159 High: 160-189 Very high: >=190 Coronary heart disease risk factors should be considered when determining LDL goals. Please refer to ATPIII guidelines for further information. If LDL is not calculated, please call the lab to add on the direct LDL methodology, if desired. HDL 38 23-92 mg/dL Non HDL Cholesterol 86 <=130 mg/dL Chol/HDL 3 0-5 Coronary Risk 31 Coronary Risk Factor - Male Dangerous Risk: <7 % High Risk: 7-15 % Average Risk: 15-25 % Below Average Risk: 25-37 % Coronary Risk Factor - Female Dangerous Risk: <12 % High Risk: 12-18 % Average Risk: 18-27 % Below Average Risk: 27-40 % Magnesium Reviewed date:08/20/2024 04:29:51 PM Interpretation: Performing Lab: Notes/Report: Test Performed by: [place] [id number] Digital Sales Planner: Kofi Soto DO Report Forwarded By: [address] [place] [address] Magnesium Lvl 2.0 1.6-2.4 mg/dL Thyroid Stimulating Hormone Reviewed date:08/20/2024 04:30:06 PM Interpretation: Performing Lab: Notes/Report: Test Performed by: [address] [address] Digital Sales Planner: Kofi Soto DO Report Forwarded By: [address] [place] [address] TSH 2.78 0.45-5.33 mcIU/mL MAMMOGRAM, SCREENING Reviewed date:06/26/2024 05:00:20 PM Interpretation:BIRAD1, negative. Performing Lab: Notes/Report: BIRAD1, negative. Reason For Referral No Information Medications Medication SIG (Take, Route, Frequency, Duration) Notes Start Date End Date Status Vitamin C 1000 MG Tablet 1 Oral every day; Duration: 0 11/23/2023 Active Topiramate 25 MG Tablet 1 Oral two times a day; Duration: 0 04/05/2023 Active Carvedilol 6.25 MG Tablet 1 tablet Oral Twice a day; Duration: 90 days Active True Metrix Glucose Test Strip miscellaneous; Duration: 0 *Reorder from [facility] for eRx and Interaction Alerts* 06/13/2020 Active Vitamin D3 50 MCG (2000 UT) Capsule 1 Oral two times a day; Duration: 0 11/23/2023 Active Aspirin 81 81 MG Tablet Delayed Release 1 tablet Orally Once a day Active amLODIPine Besylate 10 MG Tablet 1 tablet Orally Once a day; Duration: 90 days Active traZODone HCl 50 MG Tablet 1 tablet at bedtime as needed Orally Once a day; Duration: 30 days 08/20/2024 Active Vitamin B12 1000 MCG Tablet Extended Release 1 tablet Orally Once a day Active Levothyroxine Sodium 88 MCG Tablet 1 Oral every day; Duration: 90 10/31/2023 Active Amitriptyline HCl 25 MG Tablet 1 Oral every night at bedtime; Duration: 0 04/05/2023 Active Olopatadine HCl 0.2 % Solution 1 drop into affected eye Ophthalmic Once a day; Duration: 30 days 07/12/2024 Not-Taking Sertraline HCl 100 MG Tablet 1 Oral every day; Duration: 0 09/03/2020 Active predniSONE 20 MG Tablet 3 tablets once a day for 3 days, 2 tablets once a day for 3 days, 1 tablet once a day for 3 days Orally; Duration: 9 days 07/12/2024 Not-Taking dexAMETHasone 6 MG Tablet 1 tablet Orally Once a day; Duration: 5 days 08/07/2024 Active Flonase Allergy Relief nasal; Duration: 0 *Pick strength-form from [facility] for eRX* 12/30/2020 Active Nurtec 75 MG Tablet Disintegrating 1 tablet on the tongue and allow to dissolve Orally Not-Taking Farxiga 10 MG Tablet 1 Oral every day; Duration: 0 04/05/2023 Active Breo Ellipta 100-25 MCG/ACT Aerosol Powder Breath Activated 1 Inhalation every day; Duration: 0 11/24/2023 Not-Taking Accu-Chek Yvette Plus Kit 1 MISCELLANEOUS every day; Duration: 0 06/12/2020 Active Cyclobenzaprine HCl 10 MG Tablet 1 tablet at bedtime as needed Orally 3 times a day; Duration: 10 days As needed 05/23/2024 Active Ozempic (0.25 or 0.5 MG/DOSE) 2 MG/3ML Solution Pen-injector INJECT 0.5MG SUBCUTANEOUSLY EVERY WEEK on THE SAME DAY EACH WEEK weekly; Duration: 28 days Active Immunizations Vaccine Route Administration Date Status Comme nts Influenza, high dose seasonal IM Intramuscular 11/16/2023 Administered ,sourcename : N ew immunization record ,immstatus : Complete Andreia Covid-19 Vaccine Unknown 09/23/2020 Administered ,sourcename : Historical information -source unspecified Source VFC Code: : [employer] Covid-19 Vaccine 1st dose IM Intramuscular 11/16/2023 Administered ,sourcename : N ew immunization record ,immstatus : Complete Tdap Unknown 06/28/2019 Administered ,sourcename : Historical information -from other registry Source VFC Code: : Zoster Unknown 11/27/2019 Administered ,sourcename : Historical information -from other registry Source VFC Code: : Social History Social History Additional Details Category Social Info Options Details Migrated Social History Migrated Social History Tobacco history:Never smoker , Alcohol Misuse:No , Number of children:2 , Marital status: Problems Problem Type SNOMED Code ICD Code Onset Dates Problem Status W/U Status Risk Notes Problem Non-toxic uninodular goiter (379837339) Nontoxic uninodular goiter (241.0) 016 Problem resolved confirmed Problem Hypothyroidism (05798336) Unspecified hypothyroidism (244.9) 016 Problem resolved confirmed Problem Hyperlipidemia (70035156) Other and unspecified hyperlipidemia (272.4) 016 Problem resolved confirmed Problem Anemia (738217492) Unspecified a nemia (285.9) 016 Problem resolved confirmed Problem Generalized anxiety disorder (12788775) Generalized anxiety disorder (300.02) 016 Problem resolved confirmed Problem Chronic pain syndrome (044147654) Chronic pain syndrome (338.4) 016 Problem resolved confirmed Problem Redness or discharge of eye (379.93) 018 Problem resolved confirmed Problem Pain of ear (finding) (328162443) Unspecified otalgia (388.70) 018 Problem resolved confirmed Problem Hearing loss (34310792) Unspecified hearing loss (389.9) 017 Problem resolved confirmed Problem Pulmonary embolism with pulmonary infarction (1160720776071) Other pulmonary embolism and infarction (415.19) Problem resolved confirmed Problem Cardiac arrhythmia (162575447) Other specified cardiac dysrhythmias (427.89) 017 Problem resolved confirmed Problem Acute maxillary sinusitis (98071017) Acute maxillary sinusitis (461.0) Problem resolved confirmed Problem Acute sinusitis (63659940) Acute sinusitis, unspecified (461.9) Problem resolved confirmed Problem Acute bronchitis (66526962) Acute bronchitis (466.0) Problem resolved confirmed Problem Pneumonia (905838990) Pneumonia due to other specified organism (483.8) Problem resolved confirmed Problem Acute exacerbation of chronic obstructive airways disease (512510969) Obstructive chronic bronchitis, with (acute) exacerbation (491.21) Problem resolved confirmed Problem Chronic airway obstruction (28859977) Chronic airway obstruction, not elsewhere classified (496) Problem resolved confirmed Problem Sialoadenitis (97368881) Sialoadenitis (527.2) Problem resolved confirmed Problem Other specified disorder of stomach and duodenum (537.89) Problem resolved confirmed Problem Diverticulosis of colon (finding) (388201082) Diverticulosis of colon (without mention of hemorrhage) (562.10) 016 Problem resolved confirmed Problem Blood in stool (392595249) Blood in stool (578.1) 017 Problem resolved confirmed Problem Acquired trigger finger (4266681) Trigger finger (acquired) (727.03) 016 Problem resolved confirmed Problem Contact dermatitis (23529134) Contact dermatitis and other eczema, due to unspecified cause (692.9) Problem resolved confirmed Problem Telogen effluvium (85546066) Telogen effluvium (704.02) 017 Problem resolved confirmed Problem Shoulder joint pain (623624337) Pain in joint, shoulder region (719.41) Problem resolved confirmed Problem Syncope and collapse (805453343) Syncope and collapse (780.2) 019 Problem resolved confirmed Problem Malaise and fatigue (743557398) Other malaise and fatigue (780.79) 017 Problem resolved confirmed Problem Headache (57572140) Headache (784.0) 018 Problem resolved confirmed Problem Cough (75539855) Cough (786.2) 018 Problem resolved confirmed Problem Precordial pain (76022032) Precordial pain (786.51) 018 Problem resolved confirmed Problem Proteinuria (15362372) Proteinuria (791.0) 016 Problem resolved confirmed Problem Closed fracture of one or more phalanges of hand (disorder) (913324767) Closed fracture of unspecified phalanx or phalanges of hand (816.00) 018 Problem resolved confirmed Problem History of fall (725399992) Personal history of fall (V15.88) 018 Problem resolved confirmed Problem Adenovirus infection (44665541) Adenovirus infection, unspecified (B34.0) 022 Problem resolved confirmed Problem Benign neoplasm of skin of lower limb (61286862) Other benign neoplasm of skin of right lower limb, including hip (D23.71) 022 Problem resolved confirmed Problem Anemia (602056102) Anemia, unspecified (D64.9) 023 Problem resolved confirmed Problem Hypothyroidism (90053632) Hypothyroidism, unspecified (E03.9) Active confirmed Problem Non-toxic single thyroid nodule (881233707) Nontoxic single thyroid nodule (E04.1) Inactive confirmed Problem Non-toxic goiter (186516275) Nontoxic goiter, unspecified (E04.9) 016 Problem resolved confirmed Problem Diabetic peripheral neuropathy associated with type 2 diabetes mellitus (9579599910662) Type 2 diabetes mellitus with diabetic neuropathy, unspecified (E11.40) 024 Active confirmed Problem Hyperglycemia due to type 2 diabetes mellitus (813052214777163) Type 2 diabetes mellitus with hyperglycemia (E11.65) 023 Active confirmed Problem Type II diabetes mellitus without complication (222539164) Type 2 diabetes mellitus without complications (E11.9) Inactive confirmed Problem Vitamin D deficiency (28967115) Vitamin D deficiency, unspecified (E55.9) Active confirmed Problem Mixed hyperlipidemia (522292954) Mixed hyperlipidemia (E78.2) Inactive confirmed Problem Hyperlipidemia (48598408) Hyperlipidemia, unspecified (E78.5) Active confirmed Problem Hypomagnesemia (536064488) Hypomagnesemia (E83.42) Active confirmed Problem Hypokalemia (21056738) Hypokalemia (E87.6) Active confirmed Problem Migraine without aura (03864666) Migraine without aura, not intractable, with status migrainosus (G43.001) Active confirmed Problem Migraine without aura, not refractory (disorder) (869466911) Migraine, unspecified, not intractable, without status migrainosus (G43.909) Active confirmed Problem Insomnia (690976830) Insomnia, unspecified (G47.00) Active confirmed Problem Sleep apnea (03853571) Sleep apnea, unspecified (G47.30) Active confirmed Problem Acute conjunctivitis (88689937) Unspecified acute conjunctivitis, right eye (H10.31) 017 Problem resolved confirmed Problem Conjunctivitis (8854235) Unspecified conjunctivitis (H10.9) 023 Problem resolved confirmed Problem Epiretinal membrane (327430373) Puckering of macula, left eye (H35.372) Active confirmed Problem Vitreous degeneration (14652074) Vitreous degeneration, bilateral (H43.813) Active confirmed Problem Visual disturbance (69492233) Unspecified visual disturbance (H53.9) Problem resolved confirmed Problem Superficial injury of eye and adnexa (21379747) Other specified disorders of eye and adnexa (H57.8) 018 Problem resolved confirmed Problem Swimmer's ear (2118805) Swimmer's ear, right ear (H60.331) Problem resolved confirmed Problem Acute suppurative otitis media without spontaneous rupture of ear drum (13721029) Acute suppurative otitis media without spontaneous rupture of ear drum, right ear (H66.001) 021 Problem resolved confirmed Problem Hearing loss (29962386) Unspecified hearing loss, right ear (H91.91) 017 Problem resolved confirmed Problem Otalgia of right ear (finding) (4941352732) Otalgia, right ear (H92.01) Problem resolved confirmed Problem Otalgia of left ear (finding) (5213377589) Otalgia, left ear (H92.02) 016 Problem resolved confirmed Problem Bilateral otalgia (851420642) Otalgia, bilateral (H92.03) Problem resolved confirmed Problem Pain of ear (finding) (270498464) Otalgia, unspecified ear (H92.09) 016 Problem resolved confirmed Problem Essential hypertension (40793764) Essential (primary) hypertension (I10) Active confirmed Problem Pulmonary Embolism (47005436) Other pulmonary embolism without acute cor pulmonale (I26.99) 016 Problem resolved confirmed Problem Hypotension (28640012) Hypotension, unspecified (I95.9) 022 Problem resolved confirmed Problem Acute maxillary sinusitis (60473984) Acute maxillary sinusitis, unspecified (J01.00) 018 Problem resolved confirmed Problem Acute sinusitis (53058697) Acute sinusitis, unspecified (J01.90) 017 Problem resolved confirmed Problem Acute pharyngitis (415205721) Acute pharyngitis, unspecified (J02.9) 016 Problem resolved confirmed Problem Influenza due to Influenza A virus with upper respiratory signs (836949455553907) Influenza due to other identified influenza virus with other respiratory manifestations (J10.1) 018 Problem resolved confirmed Problem Infective pneumonia (723681954) Pneumonia due to other specified infectious organisms (J16.8) 016 Problem resolved confirmed Problem Pneumonia (354921025) Pneumonia, unspecified organism (J18.9) 022 Problem resolved confirmed Problem Acute bronchitis (81414094) Acute bronchitis, unspecified (J20.9) 017 Problem resolved confirmed Problem Chronic sinusitis (58569494) Chronic sinusitis, unspecified (J32.9) 024 Active confirmed Problem Disorder of nasal sinus (disorder) (2215514) Other specified disorders of nose and nasal sinuses (J34.89) 022 Problem resolved confirmed Problem Disorder of vocal cord (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) Other diseases of vocal cords (J38.3) 023 Active confirmed Problem Bronchitis (46160858) Bronchitis, not specified as acute or chronic (J40) 023 Problem resolved confirmed Problem Acute exacerbation of chronic obstructive airways disease (147613789) Chronic obstructive pulmonary disease with (acute) exacerbation (J44.1) 022 Active confirmed Problem Chronic obstructive pulmonary disease (79657239) Chronic obstructive pulmonary disease, unspecified (J44.9) 021 Active confirmed Problem Acute sialoadenitis (512387646) Acute sialoadenitis (K11.21) 018 Problem resolved confirmed Problem Gastro-esophageal reflux disease without esophagitis (157248233) Gastro-esophageal reflux disease without esophagitis (K21.9) 023 Active confirmed Problem disorder of stomach (06978008) Other diseases of stomach and duodenum (K31.89) 016 Problem resolved confirmed Problem Diverticular disease of colon (741393095) Diverticulosis of large intestine without perforation or abscess without bleeding (K57.30) 023 Active confirmed Problem Diverticulitis of colon (237607462) Diverticulitis of intestine, part unspecified, without perforation or abscess without bleeding (K57.92) 023 Active confirmed uti Problem Melena (4635305) Melena (K92.1) 017 Problem resolved confirmed Problem Dermatitis (067349029) Dermatitis, unspecified (L30.9) 022 Problem resolved confirmed Problem Telogen effluvium (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) Telogen effluvium (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.0) 022 Active confirmed Problem Folliculitis (50586432) Follicular disorder, unspecified (L73.9) 04/13/2 022 Problem resolved confirmed Problem Localized, primary osteoarthritis of the shoulder region (178978243) Primary osteoarthritis, 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) Active confirmed Problem Knee joint effusion (001076693) Effusion, right knee (M25.461) 024 Active confirmed Problem Shoulder joint pain (451888490) Pain in left shoulder (M25.512) Problem resolved confirmed Problem Arthralgia of the pelvic region and thigh (281967575) Pain in unspecified hip (M25.559) Problem resolved confirmed Problem Backache (423979306) Dorsalgia, unspecified (M54.9) Problem resolved confirmed Problem Rupture of rotator cuff of shoulder (disorder) (990815036) Unspecified rotator cuff tear or rupture of unspecified shoulder, not specified as traumatic (M75.100) Active confirmed Problem Pain in right arm (157219392) Pain in right arm (M79.601) Inactive confirmed Problem Pain in left foot (124422800747614) Pain in left foot (M79.672) Inactive confirmed Problem Disorder of bone (08926918) Other specified disorders of bone density and structure, unspecified site (M85.80) Active confirmed Problem Pyelonephritis (29990414) Tubulo-interstitia l nephritis, not specified as acute or chronic (N12) Problem resolved confirmed Problem Urinary tract infectious disease (disorder) (64573817) Urinary tract infection, site not specified (N39.0) Problem resolved confirmed Problem Bradycardia (49267628) Bradycardia, unspecified (R00.1) Problem resolved confirmed Problem Cough (15515111) Cough (R05) Inactive confirmed Problem Shortness of breath (104751088) Shortness of breath (R06.02) Problem resolved confirmed Problem Wheezing (39122967) Wheezing (R06.2) Active confirmed Problem Chest pain (08930707) Other chest pain (R07.89) Problem resolved confirmed Problem Chest pain (94234801) Chest pain, unspecified (R07.9) 018 Problem resolved confirmed Problem Left upper quadrant pain (294632856) Left upper quadrant pain (R10.12) Inactive confirmed Problem Left lower quadrant pain (422832772) Left lower quadrant pain (R10.32) 021 Inactive confirmed Problem Abdominal pain (99805823) Unspecified abdominal pain (R10.9) 022 Problem resolved confirmed Problem Diarrhea (11298486) Diarrhea, unspecified (R19.7) 016 Problem resolved confirmed Problem Dizziness and giddiness (821850693) Dizziness and giddiness (R42) 017 Problem resolved confirmed Problem Dysphonia (disorder) (03253158) Other voice and resonance disorders (R49.8) 016 Problem resolved confirmed Problem Headache (34347753) Headache (R51) 018 Problem resolved confirmed Problem Pain (26040202) Pain, unspecifie d (R52) 023 Problem resolved confirmed Problem Weakness (39419339) Weakness (R53.1) 017 Problem resolved confirmed Problem Syncope and collapse (145606893) Syncope and collapse (R55) 024 Problem resolved confirmed Problem Edema (98213252) Edema, unspecif ied (R60.9) 022 Problem resolved confirmed Problem Proteinuria (91619334) Proteinuria, unspecified (R80.9) 016 Problem resolved confirmed Problem Abnormal auditory function study (76987913266471) Abnormal auditory function study (R94.120) 024 Active confirmed Problem Abnormal results of kidney function studies (656686591) Abnormal results of kidney function studies (R94.4) 022 Inactive confirmed Problem Closed fracture of one or more phalanges of hand (244342494) Fracture of unspecified phalanx of right little finger, initial encounter for closed fracture (S62.870Y) 018 Problem resolved confirmed Problem Laceration of right lower leg (disorder) (17669251257727076 ) Laceration without foreign body, right lower leg, initial encounter (S81.161A) 12/13/2 021 Problem resolved confirmed Problem Contusion of toe (81923003) Contusion of right great toe with damage to nail, initial encounter (S90.211A) Problem resolved confirmed Problem Closed fracture of phalanx of foot (56931171) Displaced unspecified fracture of left lesser toe(s), initial encounter for closed fracture (S92.502A) Problem resolved confirmed Problem Screening for malignant neoplasm of breast (864124952) Encounter for other screening for malignant neoplasm of breast (Z12.39) Active confirmed Problem Vaccination given (478908964) Encounter for immunization (Z23) Active confirmed Problem Postmenopausal state (61881201) Asymptomatic menopausal state (Z78.0) Active confirmed Problem History of musculoskeletal disease (381051092) Personal history of other diseases of the musculoskeletal system and connective tissue (Z87.39) Active confirmed Problem History of fall (235462201) History of falling (Z91.81) Problem resolved confirmed Problem Intraocular lens implant (583530302) Presence of intraocular lens (Z96.1) Active confirmed Problem Hypertensive urgency (920958724) Hypertensive urgency (I16.0) Active confirmed Problem COVID-19 (802822894) COVID-19 (U07.1) Problem resolved confirmed Problem Chronic kidney disease stage 3 (disorder) (581515526) Chronic kidney disease, stage 3 unspecified (N18.30) Active confirmed Problem Elevation of levels of liver transaminase levels (R74.01) Active confirmed Problem Suspected disease caused by Severe acute respiratory coronavirus 2 (situation) (544445837) Encounter for screening for COVID-19 (Z11.52) Problem resolved confirmed Problem Depression (738116224) Depression, unspecified (F32.A) Active confirmed Problem Low back pain (212744707) Low back pain, unspecified (M54.50) Problem resolved confirmed Problem Cough (finding) (86305534) Other specified cough (R05.8) 023 Problem resolved confirmed Problem Body mass index 25-29 - overweight (752018410) Body mass index (BMI) 27.0-27.9, adult (Z68.27) 024 Active confirmed Vital Signs Heart Rate 68 /min 08/07/2024 Temperature 97.5 degrees Fahrenheit 08/07/2024 Respiratory Rate 18 /min 08/02/2024 Height-cm 170.18 cm 08/07/2024 Oximetry 92 % 08/07/2024 Blood pressure diastolic 78 mm Hg 08/07/2024 Weight-kg 82.06 kg 08/07/2024 Height 67.00 in 08/07/2024 Blood pressure systolic 128 mm Hg 08/07/2024 Weight 180.9 lbs 08/07/2024 BMI 28.33 kg/m2 08/07/2024 Encounters Encounter Location Date Provider Diagnosis [address] [address] 09/23/2023 Dr. Jayy Haider Essential (primary) hypertension I10 ; Other fatigue R53.83 ; Hypothyroidism, unspecified E03.9 ; Hypomagnesemia E83.42 ; Chronic obstructive pulmonary disease, unspecified J44.9 ; Hypokalemia E87.6 ; Hyperlipidemia, unspecified E78.5 and Insomnia, unspecified G47.[address] [address] 09/26/2023 Provider Migration Hypokalemia E87.[address] [address] 10/25/2023 Dr. Jayy Haider Chronic obstructive pulmonary disease, unspecified J44.9 ; Insomnia, unspecified G47.00 ; Wheezing R06.2 ; Hypokalemia E87.6 and Essential (primary) hypertension I10 [address] [address] 11/16/2023 Dr. Bisi Disa Encounter for immunization Z23 [address] [address] 11/23/2023 Dr. Jayy Haider Encounter for immunization safety counseling Z71.85 ; Encounter for other screening for malignant neoplasm of breast Z12.39 ; Encounter for general adult medical examination without abnormal findings Z00.00 ; Depression, unspecified F32.A ; Chronic obstructive pulmonary disease, unspecified J44.9 ; Personal history of other diseases of the musculoskeletal system and connective tissue Z87.39 ; Type 2 diabetes mellitus with diabetic neuropathy, unspecified E11.40 ; Abnormal auditory function study R94.120 ; Encounter for screening for other viral diseases Z11.59 ; Other fatigue R53.83 ; Body mass index (BMI) 27.0-27.9, adult Z68.27 and Type 2 diabetes mellitus with hyperglycemia E11.[address] [address] 11/24/2023 Provider Migration Chronic obstructive pulmonary disease, unspecified J44.[address] [address] 11/28/2023 Provider Migration Asymptomatic menopausal state Z78.[address] [address] 11/29/2023 [facility] Chronic obstructive pulmonary disease with (acute) exacerbation J44.1 and Chronic sinusitis, unspecified J32.[address] [address] 12/01/2023 Dr. Bisi Dias Acute upper respiratory infection, unspecified J06.9 ; Migraine, unspecified, not intractable, without status migrainosus G43.909 ; Hypertensive urgency I16.0 ; Headache, unspecified R51.9 ; Type 2 diabetes mellitus with hyperglycemia E11.65 and Other fatigue R53.[address] [address] 01/03/2024 Provider Migration Essential (primary) hypertension I10 [address] [address] 01/16/2024 Dr. Jayy Haider [address] [address] 01/24/2024 Dr. Jayy Haider COPD exacerbation J44.[address] [address] 02/21/2024 [facility] Type 2 diabetes mellitus with diabetic neuropathy, unspecified E11.40 ; Swelling of toe of left foot M79.89 and Paresthesia of foot, bilateral R20.2 [place] [address]/16/2024 [facility] Lumbar back pain M54.50 [place] [address] 03/20/2024 Dr. Jayy Haider Influenza A J10.1 [place] 3899503/28/2024 Dr. Jayy Haider COPD exacerbation J44.1 and Essential (primary) hypertension I10 [place] 3899504/11/2024 [facility] Acute pharyngitis, unspecified etiology J02.9 and Chronic obstructive pulmonary disease with (acute) exacerbation J44.1 [place] 3899504/20/2024 Dr. Jayy Haider Type 2 diabetes mellitus with hyperglycemia E11.65 ; Essential (primary) hypertension I10 and Episodic lightheadedness R42 [place] [address]/23/2024 Dr. Jayy Haider Type 2 diabetes mellitus with diabetic neuropathy, unspecified E11.40 ; Lumbar back pain M54.50 and Essential (primary) hypertension I10 [place] [address]/03/2024 Dr. Jayy Haider Hordeolum internum o f right lower eyelid H00.022 [place] [address]/12/2024 Dr. Bisi Dias Upper respiratory infection, acute J06.9 ; Chronic obstructive pulmonary disease with (acute) exacerbation J44.1 ; Acute allergic conjunctivitis of both eyes H10.13 and Hordeolum externum left upper eyelid H00.014 [place] [address]/30/2024 Bisi Lamas Muscle spasm M62.838 ; Vitamin D deficiency, unspecified E55.9 ; Lumbar back pain M54.50 and Bilateral leg cramps R25.2 [place] [address]/02/2024 [facility] Essential (primary) hypertension I10 [facility] [address] [place] [address] 08/07/2024 [facility] Essential (primary) hypertension I10 and Chronic obstructive pulmonary disease, unspecified J44.9 [facility] [address] [place] [address] 01/07/2024 Provider Migration [facility] [address] [place] [address] 01/08/2024 Provider Migration [facility] [address] [place] [address] 08/24/2024 Dr. Jayy Haider [facility] [address] [place] [address] 01/26/2024 Dr. Jayy Haider [facility] [address] [place] [address] 02/22/2024 [facility] [address] [place] [address] 02/23/2024 [facility] [address] [place] [address] 03/12/2024 Dr. Jayy Haider Low back pain, unspecified M54.50 [facility] [address] [place] [address] 04/11/2024 Dr. Jayy Haider [facility] [address] [place] [address] 04/13/2024 Dr. Jayy Haider [facility] [address] [place] [address] 04/16/2024 Dr. Jayy Haider [facility] [address] [facility] [place] [address] 04/16/2024 Dr. Jayy Haider [facility] [address] [place] [address] 04/17/2024 Dr. Jayy Haider [facility] [address] [place] [address] 04/17/2024 Dr. Jayy Haider [facility] [address] [place] [address] 04/19/2024 Dr. Jayy Haider [facility] [address] [place] [address] 04/24/2024 Dr. Jayy Haider [facility] [address] [place] [address] 04/30/2024 Dr. Jayy Haider [facility] [address] [place] [address] 05/08/2024 Dr. Jayy Haider [facility] [address] [place] [address] 05/11/2024 Dr. Jayy Haider [facility] [address] [place] [address] 05/18/2024 [facility] [address] [place] [address] 05/29/2024 Dr. Jayy Haider [facility] [address] [place] [address] 06/11/2024 Dr. Jayy Haider [facility] [address] [place] [address] 07/05/2024 Dr. Jayy Haider [facility] [address] [place] [address] 07/11/2024 Dr. Jayy Haider [facility] [address] [place] [address] 07/16/2024 Dr. Jayy Haider [facility] [address] [place] [address] 07/19/2024 Dr. Jayy Haider Type 2 diabetes mellitus with hyperglycemia E11.65 [facility] [address] [place] [address] 07/30/2024 Dr. Jayy Haider [facility] [address] [place] [address] 07/31/2024 Bisi Lamas [facility] [address] [place] [address] 08/01/2024 Dr. Jayy Haider [facility] [address] [place] [address] 08/02/2024 Dr. Jayy Haider [facility] [address] [place] [address] 08/07/2024 Dr. Jayy Haider [address] [address] 08/13/2024 Dr. Jayy Haider [address] [address] 08/20/2024 Dr. Jayy Haider [address] [address] 08/23/2024 Dr. Jayy Haider Assessments Encounter Date Diagnosis (ICD Code) Assessment Notes Treatment Notes Treatment Clinical Notes Section Notes 04/20/2024 Type 2 diabetes mellitus with hyperglycemia (ICD-10 - E11.65) 07/30/2024 Muscle spasm (ICD-10 - M62.838) Lab was unsuccessful collecting labwork today. Pt. will return this week for labs. - Chronic back pain with muscle spasms, with recent exacerbation.- Prior lumbar spine surgery and edwin placement. - Restart Cyclobenzaprine, up to 3 times daily as needed for muscle spasms, with caution regarding sedation and driving.- Alternate ice and heat for symptomatic relief. - Administer subcutaneous steroid injection today for short-term relief. - Follow up with Dr. Haider in 1 month to reassess symptoms and management. - Possible contribution of vitamin or electrolyte deficiency to muscle spasms/leg cramps.- Order laboratory tests to assess electrolytes, vitamin D, and B12 levels. Review supplementation and absorption if deficiencies are found. 05/23/2024 Type 2 diabetes mellitus with diabetic neuropathy, unspecified (ICD-10 - E11.40) 07/03/2024 Hordeolum internum of right lower eyelid (ICD-10 - H00.022) 07/30/2024 Vitamin D deficiency, unspecified (ICD-10 - E55.9) 04/20/2024 Essential (primary) hypertension (ICD-10 - I10) 03/28/2024 COPD exacerbation (ICD-10 - J44.1) If pt. is not getting better on Doxy, then she will call and I would transition to Azithromycin. Reviewed chest xray and no acute findings. Continue with course of treatment. EILEEN Fishman called and updated pt. v/u. 07/12/2024 Chronic obstructive pulmonary disease with (acute) exacerbation (ICD-10 - J44.1) use nebs at home. just had CXR in Mar for same symptoms - negative result. Continue breo, call if worsening or not improving. wear mask if seeing in hospital. decadron today 6mg start prednisone tomorrow start doxy today 07/12/2024 Upper respiratory infection, acute (ICD-10 - J06.9) 05/23/2024 Lumbar back pain (ICD-10 - M54.50) 03/20/2024 Influenza A (ICD-10 - J10.1) 03/16/2024 Lumbar back pain (ICD-10 - M54.50) Refill norco, dicsussed risk and benefit of med. Follow up back pain in 1 week. MRI lumbar spine ordered, likely has moderate/severe stenosis of central canal. Continue tylenol. Torodal and 6mg dex administeredin office. Recommend PT once acute pain starts to resolve. Continue gentle stretching activity as tolerated. 03/12/2024 Low back pain, unspecified (ICD-10 - M54.50) 02/21/2024 Type 2 diabetes mellitus with diabetic neuropathy, unspecified (ICD-10 - E11.40) 02/21/2024 Swelling of toe of left foot (ICD-10 - M79.89) 04/11/2024 Acute pharyngitis, unspecified etiology (ICD-10 - J02.9) Strep negative, due to recent strep exposure treating for strep with cefdinir. Pharyngitis may also be viral which will take 5-7 days to improve. Use throat lozenges and tylenol PRN for pain management. 08/02/2024 Essential (primary) hypertension (ICD-10 - I10) - Labile blood pressure with both hypertensive and hypotensive episodes, only symptomatic with hypotensive, experiences dizziness. Noted more frequent high readings, but recent low (75/53) with symptoms. No new chest pain or dyspnea associated with episodes.- Differential diagnosis includes primary hypertension, medication-induced blood pressure fluctuations, and possible autonomic dysfunction.- Reduce amlodipine dose to 5 mg daily. Use clonidine 0.1 mg as needed for systolic BP >150 or diastolic BP >100, with repeat dose if not lowered after 1 hour. Monitor BP 1 hour after clonidine. Add CBC to recent bloodwork. Follow-up appointment scheduled for next week. Advise to call with any changes, concerns, or questions. Emphasize safety and fall prevention.- BP will likely be higher than normal which is already moderately elevated, goal is to resolve dizziness. Clonidine less likely to cause persistent low BP.- Risks and side effects: clonidine may cause fatigue/tiredness. 01/24/2024 COPD exacerbation (ICD-10 - J44.1) COPD Exacerbation - Ongoing COPD exacerbation with diffuse expiratory wheezes. - Administer another course of steroids. Continue aggressive inhaled treatments. Phone follow-up in two days to assess progress. If cough becomes more productive, consider starting a different antibiotic. - Contingency plan: If May's symptoms worsen or if she experiences any new symptoms, she should contact the clinic immediately. If the cough becomes more productive, a different antibiotic may be started. 01/03/2024 Essential (primary) hypertension (ICD-10 - I10) 12/01/2023 Type 2 diabetes mellitus with hyperglycemia (ICD-10 - E11.65) 12/01/2023 Migraine, unspecified, not intractable, without status migrainosus (ICD-10 - G43.909) 12/01/2023 Acute upper respiratory infection, unspecified (ICD-10 - J06.9) 12/01/2023 Other fatigue (ICD-10 - R53.83) 12/01/2023 Hypertensive urgency (ICD-10 - I16.0) 12/01/2023 Headache, unspecified (ICD-10 - R51.9) 11/29/2023 Chronic sinusitis, unspecified (ICD-10 - J32.9) 11/29/2023 Chronic obstructive pulmonary disease with (acute) exacerbation (ICD-10 - J44.1) 11/28/2023 Asymptomatic menopausal state (ICD-10 - Z78.0) 11/24/2023 Chronic obstructive pulmonary disease, unspecified (ICD-10 - J44.9) 11/23/2023 Type 2 diabetes mellitus with diabetic neuropathy, unspecified (ICD-10 - E11.40) 11/23/2023 Type 2 diabetes mellitus with hyperglycemia (ICD-10 - E11.65) 11/23/2023 Chronic obstructive pulmonary disease, unspecified (ICD-10 - J44.9) 11/23/2023 Other fatigue (ICD-10 - R53.83) 11/23/2023 Abnormal auditory function study (ICD-10 - R94.120) 11/23/2023 Encounter for general adult medical examination without abnormal findings (ICD-10 - Z00.00) 11/23/2023 Encounter for screening for other viral diseases (ICD-10 - Z11.59) 11/23/2023 Encounter for other screening for malignant neoplasm of breast (ICD-10 - Z12.39) 11/23/2023 Personal history of other diseases of the musculoskeletal system and connective tissue (ICD-10 - Z87.39) 11/23/2023 Depression, unspecified (ICD-10 - F32.A) 11/23/2023 Encounter for immunization safety counseling (ICD-10 - Z71.85) 11/23/2023 Body mass index (BMI) 27.0-27.9, adult (ICD-10 - Z68.27) 11/16/2023 Encounter for immunization (ICD-10 - Z23) 10/25/2023 Hypokalemia (ICD-10 - E87.6) 10/25/2023 Insomnia, unspecified (ICD-10 - G47.00) 10/25/2023 Essential (primary) hypertension (ICD-10 - I10) 10/25/2023 Chronic obstructive pulmonary disease, unspecified (ICD-10 - J44.9) 10/25/2023 Wheezing (ICD-10 - R06.2) 09/26/2023 Hypokalemia (ICD-10 - E87.6) 09/23/2023 Hypothyroidism, unspecified (ICD-10 - E03.9) 09/23/2023 Hyperlipidemia, unspecified (ICD-10 - E78.5) 09/23/2023 Hypomagnesemia (ICD-10 - E83.42) 09/23/2023 Hypokalemia (ICD-10 - E87.6) 09/23/2023 Insomnia, unspecified (ICD-10 - G47.00) 09/23/2023 Essential (primary) hypertension (ICD-10 - I10) 09/23/2023 Chronic obstructive pulmonary disease, unspecified (ICD-10 - J44.9) 09/23/2023 Other fatigue (ICD-10 - R53.83) 08/07/2024 Essential (primary) hypertension (ICD-10 - I10) - Hypertension with variable blood pressure, including episodes of hypotension and elevated readings. Hypotension stopped after reduction in amlodipine.- Continue current antihypertensive regimen with amlodipine 5mg and carvedilol 6.25 BID. Monitor blood pressure closely. If blood pressure remains high, consider increasing amlodipine to 5mg BID, dosed to morning and evening. Use clonidine if blood pressure remains above 150 systolic or 100 diastolic one hour after taking medications. Continue remote patient monitoring. Notify caregiver if blood pressure is low and follow established safety protocol.- Steroid will make BP go higher but is required for COPD management at this time, could also start amlodipine BID for steroid course. 08/07/2024 Chronic obstructive pulmonary disease, unspecified (ICD-10 - J44.9) - COPD exacerbation with significant wheezing and decreased oxygen saturation.- Administer dexamethasone 6mg IM. Prescribe dexamethasone 6 mg daily for 5 days, start tomorrow. Continue DuoNeb (ipratropium/albut jolene) every 4 hours as needed and breo daily. Use home nebulizer as directed. Call for update on this week. If not improving, contact for further management. Next follow-up scheduled for August 29, 2024. 02/21/2024 Paresthesia of foot, bilateral (ICD-10 - R20.2) Symptoms suggest her increased paresthesia of bilateral may be due to lumbar/sacral degenerative changes. X ray lumbar spine to evaluate, may need MRI or CT. Has chronic neuropathy from DM2, last A1c 7.2, less likely to cause these acutely progressing symptoms. Uric acid to check for gout, symptoms on L foot similar to gout as well. Options for neuropathy treatment include increasing amitriptyline or switching sertraline for duloxetine, previous bad reaction (memory loss) with gabapentin/lyrica. 07/12/2024 Acute allergic conjunctivitis of both eyes (ICD-10 - H10.13) start pataday - likely itching of eyes led to stye both sides. right is improved. 07/19/2024 Type 2 diabetes mellitus with hyperglycemia (ICD-10 - E11.65) 04/11/2024 Chronic obstructive pulmonary disease with (acute) exacerbation (ICD-10 - J44.1) Diffusely wheezy on exam, has had multiple courses of steroids in last month. Initiate prednisone, discussed risk and benefit of meds. Continue inhalers as prescribed. 04/20/2024 Episodic lightheadedness (ICD-10 - R42) 07/30/2024 Lumbar back pain (ICD-10 - M54.50) 05/23/2024 Essential (primary) hypertension (ICD-10 - I10) 07/30/2024 Bilateral leg cramps (ICD-10 - R25.2) 07/12/2024 Hordeolum externum left upper eyelid (ICD-10 - H00.014) 03/28/2024 Essential (primary) hypertension (ICD-10 - I10) Increasing dose of Coreg from 3.125 BID to 6.25mg BID d/t elevated home readings of diastolics in the 100s. 07/12/2024 Other RECOMMENDATIONS : Increase fluid intake. Get plenty of rest. Treat fever and/or aches and pains with Tylenol and Motrin OTC unless contraindicated. I recommended the patient RTC if not improving or if worsening. Plan Of Treatment Pending Test Test Name Order Date X ray : Spines, lumbar 2 views Uric Acid, Serum 02/21/2024 C-Reactive Protein, Quant 02/21/2024 Comp. Metabolic Panel (14) 02/21/2024 Strep Culture 04/11/2024 Covid 19 Rapid Cepheid PCR 04/11/2024 Hemoglobin A1c {Glycosylated} 05/23/2024 Next Appt Details Provider Name:Dr. Jayy scales, 08/29/2024 01:30:00 PM, [facility], [place], [address], [phone] Provider Name:Dr. Jayy scales, 11/23/2024 09:30:00 AM, [facility], [place], [address], [phone] Insurance Providers Payer Name Payer Address Payer Phone Subscriber Number Group Number Insured Name Patient Relationship to Insured Coverage Start Date Coverage End Date NGS Medicare RHC [address] [place] [phone] [id number] May You Self - patient is the insured 2 [employer] [address] [place] [address] [id number] Plan F May You Self - patient is the insured 2 Medications Administered Medication Instructions Date of Administration Dosage Notes dexAMETHasone 01/24/2024 1.5 mL dexAMETHasone 03/16/2024 6 mg dexAMETHasone 07/12/2024 6 mg dexAMETHasone 07/30/2024 6 mg dexAMETHasone 08/07/2024 6 mg Ketorolac Tromethamine 03/16/2024 1 mL Medical (General) History Medical History History ICD Code Depression, unspecified F32.A Chronic kidney disease, stage 3 unspecif ied N18.30 Hypertensive urgency I16.0 Primary osteoarthritis, unspecified shou lder M19.019 Chronic obstructive pulmonary disease, u nspecified J44.9 Chronic sinusitis, unspecified J32.9 Essential (primary) hypertension I10 Vitreous degeneration, bilateral H43.813 Sleep apnea, unspecified G47.30 Insomnia, unspecified G47.00 Hyperlipidemia, unspecified E78.5 Vitamin D deficiency, unspecified E55.9 Hypomagnesemia E83.42 Hypokalemia E87.6 Type 2 diabetes mellitus with hyperglyce marlen E11.65 Hypothyroidism, unspecified E03.9 Type 2 diabetes mellitus with diabetic n europathy, unspecified E11.40 Surgical History Surgery Date(Month/Year) Heart Catheterization ,notes : 3 Cardiac Cath ,notes : Oct 09 cardiac cath- no stents placed. Performed by surgeon with Dr Jones back surgery ,notes : Multip le back surgeries: 2008, 2010, 2012 (fused L3, L4, & L5) ([id number]) REMOVAL OF TONSILS 1965 Bladder repair 1975 TMJ Surgery ,notes : 3 surgeries 1987 hysterectomy ,notes : Partial 1991 ACL repair 1999 cholecystectomy 2004 Hip replacement ,notes : right hip 2008 ear surgery ,notes : Ear drum repair 200 9 Carpal tunnel surgery 2010 EGD 2016 Colonoscopy 2016 Knee arthroscopy ,notes : [facility] - knee. 07/26/23
--- OUTSIDE RECORDS SUMMARY | 2024-08-24 13:51 | XMS_ITS | Encounter Summary ---
Author Organization [facility] Address [address] [place] [address] Care Team Providers Care Sheet Metal Roofer Name Role Phone Jayy Haider MD Primary Care Provider [phone] Navjot Rosenberg MD Unavailable Encounter Details Date Type Department Care Team (Late st Contact Info) Description 08/04/2022 MyChart Message Enc [facility] [address] [place] [address] [place] Provider Air Quality Message Social History Tobacco Use Types Packs/Day Years Used Date Smoking Tobacco: Never Smokeless Tobacco: Never Alcohol Use Standard Drinks/Week Comments No 0 (1 standard drink = 0.6 oz pur e alcohol) Humiliation, Afraid, Rape, and Kick questionnair e Answer Date Recorded Within the last year, have y ou been afraid of your partner or ex-partner? No 05/15/2022 Within the last year, have y ou been humiliated or emotionally abused in other ways by your partner or ex-partner? No Within the last year, have y ou been kicked, hit, slapped, or otherwise physically hurt by your partner or ex-partner? No 05/15/2022 Within the last year, have y ou been raped or forced to have any kind of sexual activity by your partner or ex-partner? No 05/15/2022 Social Connection and Isolation Panel [NHANES] A nswer Date Recorded In a typical week, how many times do you talk on the phone with family, friends, or neighbors? Twice a week 05/15/2022 How often do you get together with friends or re latives? Twice a week 05/15/2022 How often do you attend advent or spiritism serv ices? Never 05/15/2022 Do you belong to any clubs o r organizations such as advent groups, unions, fraternal or athletic groups, or [...] care, and heating? Not hard at all 05/15/2022 [facility] - Occupational Stress [...] the money to buy more. Never true 05/16/19 23 Within the past 12 months, t he food you bought just didn't last and you didn't have money to get more. Never true 05/15/2022 PRAPARE - Transportation Answer Date Re corded In the past 12 months, has l ack of transportation kept you from medical appointments or from getting medications? No 09/2022 In the past 12 months, has l ack of transportation kept you from meetings, work, or from getting things needed for daily living? No 05/15/2022 Housing Stability Vital Sign Answer [...] place to sleep or slept in a fdc (including now)? No 05/15/2022 Comments No Sex and Gender Information Value Date Recorded Sex Assigned at Female 02/21/2024 2:54 PM [employer] Legal Sex Female 10:47 PM CDT Gender Identity Not on file Sexual Orientation Not on file Occupation Industry Job Start Date Job End Date retired Not on file Not on file Not on file documented as of this encounter Functional Status * Are you deaf or do you have serious difficulty hearing Answer Date of Assessment Author Status No 05/15/2022 1:00 PM Angella Kellogg RN Active * Are you blind or do you have serious difficulty seeing, even when wearing glasses? Answer Date of Assessment Author Status No 05/15/2022 1:00 PM Angella Kellogg RN Active * Do you have serious difficulty walking or climbing stairs? Answer Date of Assessment Author Status No 05/15/2022 1:00 PM Angella Kellogg RN Active * Do you have difficulty dressing or bathing? Answer Date of Assessment Author Status No 05/15/2022 1:00 PM Angella Kellogg RN Active * Because of a physical, mental, or emotional condition, do you have difficulty doing errands alone such as visiting a doctor's office or shopping? Answer Date of Assessment Author Status No 05/15/2022 1:00 PM Angella Kellogg RN Active documented as of this encounter Mental Status * Because of a physical, mental, or emotional condition, do you have serious difficulty concentrating, remembering, or making decisions? Answer Entry Date Author Status No 05/15/2022 1:00 PM CDT Angella Elliott RN Active documented in this encounter Plan of Treatment Not on file documented as of this encounter Visit Diagnoses Not on filedocumented in this encounter Additional Health Concerns Infection Onset Date Last Indicated Resolved Time COVID-19 Rule Out 06/21/2023 06/21/2023 06/21/2023 4:29 PM CDT documented as of this encounter Care Teams Sheet Metal Roofer Relationship Specialty Start Date End Date Jayy Haider MD [address] [place], [place] [id number] PCP - General PEDIATRICS 08/25/15 Navjot Rosenberg MD [address] [place] [address] INTERNAL MEDICINE 09/09/15 documented as of this encounter
--- OUTSIDE RECORDS SUMMARY | 2024-08-24 13:51 | XMS_ITS | Clinical Summary ---
Author Organization [facility] Address [address] [address] Phone Care Team Providers Care Supervisor In Charge Name Role Phone Carine Pratt MD Unavailable [phone] Social History Tobacco Use Types Packs/Day Years [...] age to complete this topic Insurance MEDICARE [facility] Care Teams Supervisor In Charge Relationship Specialty Start Date End Date Carine Pratt MD [address] [facility] [address] [place] [address] Pulmonary Disease 09/22/16
== END 2024-08-24 13:46 | disposition home or self-care (01) ==
PROVIDERS: PCP Pediatrics; Visit Provider Pediatrics
DX: M85.89 Other specified disorders of bone density and structure, multiple sites (principal); Z78.0 Asymptomatic menopausal state
CPT/HCPCS: 77080